=== PATIENT | male | born 1940 | race Hispanic/Latino ===

== ENCOUNTER 2024-05-04 02:36 | Inpatient (IN) | payer SELFPAY ==
[~2024-05-04] VITALS: Ht 172.7 cm; Wt 70.8 kg
[2024-05-04] VITALS (76 sets, daily range): BP systolic 75–163; BP diastolic 33–90; PULSE 53–94; RESP 9–81; TEMP 97.2–98.7; O2SAT 95–99
[2024-05-04 05:48] LABS: BASOPHILS # (AUTO) 0.02 K/uL (0.00-0.20); BASOPHILS % (AUTO) 0.2 % (0.0-5.0); EOSINOPHILS # (AUTO) 0.04 K/uL (0.00-0.70); EOSINOPHILS % (AUTO) 0.4 % (0.0-8.0); HEMATOCRIT 45.9 % (42-54); IMMATURE GRANULOCYTE ABSOLUTE 0.03 K/uL (0-1); LYMPHOCYTES # (AUTO) 1.4 K/uL (1.0-4.8); LYMPHOCYTES % (AUTO) 14.9 % (21.0-51.0); MEAN CORPUSCULAR HEMOGLOBIN 31.3 pg (27.0-33.0); MEAN CORPUSCULAR HGB CONC 33.8 g/dL (32.0-36.0); MEAN CORPUSCULAR VOLUME 92.5 fL (79-99); MONOCYTES # (AUTO) 0.8 K/uL (0.1-1.0); MONOCYTES % (AUTO) 8.4 % (3.0-13.0); NEUTROPHILS % (AUTO) 75.8 % (40.0-77.0); PLATELET COUNT (AUTO) 140 K/uL (130-400); RED BLOOD CELL COUNT(AUTO) 4.96 MIL/uL (4.50-6.20); RED CELL DISTRIBUTION WIDTH 12.5 % (11.0-15.5); WHITE BLOOD COUNT (AUTO) 9.3 K/uL (4.8-10.8)
[2024-05-04 05:59] LABS: ALBUMIN 3.5 g/dL (3.5-5.0); CREATININE 1.2 mg/dL (0.5-1.3); PHOSPHORUS 3.7 mg/dL (2.5-4.9); POTASSIUM 4.6 mmol/L (3.5-5.1)
[2024-05-04 06:00] LABS: BILIRUBIN,TOTAL 0.5 mg/dL (0.2-1.0); MAGNESIUM 2.2 mg/dL (1.80-2.40); TOTAL PROTEIN, SERUM 7.1 g/dL (6.0-8.3)
[2024-05-04] MEDS ORDERED: acetaMINOPHEN 650 MG SUPPOSITORY RC PRN (06:00)
[2024-05-04] MEDS ORDERED: hydrALAZine 20MG/ML VIAL IV PRN (06:00)
[2024-05-04] MEDS ORDERED: acetaMINOPHEN 325 MG TAB PO PRN (06:00)
[2024-05-04] MEDS ORDERED: doCUSate SODIUM 100 MG CAP PO PRN (06:00)
[2024-05-04] MEDS ORDERED: ondanSETRON 4MG INJ IVP PRN (06:00)
[2024-05-04 06:10] LABS: INR 1.01 (0.85-1.15); PARTIAL THROMBOPLASTIN TIME 34.4 SEC (26.3-35.5); PROTHROMBIN TIME 10.9 SEC (9.6-11.6)
[2024-05-04] MEDS ORDERED: SACU1TAB7 PO (06:13)
[2024-05-04] MEDS ORDERED: INSU3INS9 SQ (06:13)
[2024-05-04] MEDS ORDERED: CELECOXIB (06:13)
[2024-05-04] MEDS ORDERED: PREGABALIN (06:13)
[2024-05-04] MEDS ORDERED: [UNRECOGNIZED DRUG - OTHER] (06:13)
[2024-05-04] MEDS: INSULIN humuLIN R 100 UNIT/ML 3ML SQ SCH (06:28)
[2024-05-04] MEDS ORDERED: SPIRONOLACTONE (06:38)
[2024-05-04] MEDS: HEParin 5,000 UNIT VIAL IV PRN (07:00)
[2024-05-04] MEDS: HEParin 5,000 UNIT VIAL ONE (07:44)
[2024-05-04] MEDS: HEParin 25,000 UNITS/250ML D5W 250 ML IV SCH (07:46)
--- NOTE | 2024-05-04 07:57 | EKG ---
[facility] Test Date: 2024-05-04 Test Time: 07:40:06 Pat Name: ERICA CHATMAN Department: [facility] Room: 209 1 Gender: M Clinical Physician Assistant: JOSÉ MARES : 1940 Requested By: NAVEEN FRIEND Order Number: [id number] Reading MD: Aneta Zaragoza Measurements Intervals [place] Rate: 61 P: 43 MI: 188 QRS: -36 QRSD: 114 T: 118 QT: 492 QTc: 495 Interpretive Statements Sinus rhythm with premature atrial complexes Left axis deviation Low voltage QRS Incomplete right bundle branch block ST & T wave abnormality, consider lateral ischemia Prolonged QT No previous ECG available for comparison Electronically Signed On 05-04-2024 11:12:20 CDT by Aneta Zaragoza Please click the below link to view image of tracing.
[2024-05-04 08:17] LABS: HEMOGLOBIN A1C 7.7 % (4.0-6.0)
[2024-05-04 08:52] LABS: CHOLESTEROL 185 mg/dL (<200); HDL CHOLESTEROL 53 mg/dL (29-71); LDL DIRECT 116 mg/dL (0-99); TRIGLYCERIDES 109 mg/dL (30-200)
[2024-05-04] MEDS: FAMOTIDINE 20MG TAB PO SCH (09:23)
[2024-05-04] MEDS: ASPIRIN 81 MG EC TAB PO SCH (09:23)
[2024-05-04] MEDS ORDERED: MAGNESIUM 2GM PREMIX 50ML 50 ML IV PRN (09:30)
[2024-05-04] MEDS ORDERED: PoTASSium chloRIDE 20MEQ ER 20 MEQ ERTAB PO PRN (09:30)
[2024-05-04] MEDS ORDERED: PoTASSium chloRIDE 20MEQ/100ML 100 ML IV PRN ×2 (09:30)
[2024-05-04] MEDS ORDERED: PoTASSium chl 10% ELIXIR 20MEQ 20 MEQ/15 ML UDCUP PO PRN (09:30)
[2024-05-04] MEDS: NITROGLYCERIN 50MG/D5W 250ML 250 BOT IV SCH (09:55)
[2024-05-04 10:15] LABS: ADD UA MICROSCOPIC YES; APPEARANCE,URINE CLEAR (CLEAR); BILIRUBIN,URINE NEGATIVE (NEGATIVE); COLOR,URINE LIGHT-YELLOW (YELLOW); GLUCOSE, URINE (UA) >=1000 mg/dL (NEGATIVE); KETONES,URINE 40 mg/dL (NEGATIVE); LEUKOCYTE ESTERASE ,URINE NEGATIVE Leu/uL (NEGATIVE); NITRATE,URINE NEGATIVE (NEGATIVE); OCCULT BLOOD,URINE NEGATIVE (NEGATIVE); PROTEIN,URINE NEGATIVE (NEGATIVE); UROBILINOGEN,URINE 0.2 mg/dL (0.2-1.0)
[2024-05-04 10:16] LABS: MUCUS,URINE RARE LPF (None Seen); RBC,URINE 0-1 /HPF (0-1); SQUAMOUS EPITHELIAL CELL,UR RARE /HPF (0-2); WBC,URINE 0-1 /HPF (0-1)
--- NOTE | 2024-05-04 10:26 | HMCIMG ---
CHEST 1VW REASON: STEMI COMPARISON: None. FINDINGS: Single view of the chest was obtained. Lungs are clear. Heart size is normal. There is no pulmonary vascular congestion. Mediastinum and bony thorax appear unremarkable. IMPRESSION: 1. Normal single view chest x-ray.
--- NOTE | 2024-05-04 10:34 | HP ---
[facility] HISTORY & PHYSICAL Date Patient Seen: May 04, 2024 Time of Visit: 10:33 Supervising Physician: Fabricio Strong Primary Care Physician: Non established- lives in [place]- self pay Outpatient Specialists: ROGER Inpatient Consults: Dr. Fabricio Greene, Dr. Augusto Zaragoza, Dr. Garcia PROBLEM LIST: Lateral wall ST elevation TN Status post left heart cardiac catheterization on 05/03/[address] Marin in [facility] Multivessel coronary artery disease Acute coronary syndrome Elevated troponin Chest pain related to ACS Acute kidney injury due to ATN from dehydration Hyperglycemia in the setting of T2DM H/O Coronary artery disease status post PCI stent remote, hypertension, hy perlipidemia, Diabetes mellitus type II HISTORY OF PRESENT ILLNESS: 83-year-old frail pleasant elderly male, no established PCP. Past medical history significant for coronary artery disease status post PCI stent placement in the past, diabetes mellitus type 2 hypertension and hyperlipidemia. Presented to [facility] ED complaining of substernal chest pain radiating to the back rating it 10 of 10 scale accompanied dizziness and shortness of breaths. Denies nauseous and vomiting, diaphoresis, palpitations, syncope, abdominal pain, diarrhea, constipation, or generalized body weakness. Reports this pain around 4:25 p.m. today who was witnessed by the son and he was immediately brought to the hospital. On arrival to ED he was found to have elevated troponin of 2.[address] elevation in the lateral leads V5 and V6 for which NS STEMI alert was activated and patient underwent immediate left heart cardiac catheterization by today. He was found to have multi-vessel CAD with culprit lesion in the mid LAD, 90% lesion with thrombus, therefore Utility Inspector recommended CABG. He was then referred to Dr. Fisher/Cardiothoracic surgeon and he was transferred today to [facility] for invasive procedure of coronary artery bypass graft. Laboratory results during his stay at [facility] were WBC 7.7 Hemoglobin 15.8 Hematocrit 46.5, Platelets 144, sodium 140, potassium 4.2, uremia with BUN 25, creatinine 1.3, GFR 56, glucose 108, hemoglobin A1c 7.7, troponin 2.046, BNP 109, total protein 7.5, albumin 4.0, cholesterol 198, LDL 132, and HDL 45. No recent echocardiogram. At the time of my evaluation, the patient reports mild chest pain that has decreased in intensity and denies any other discomfort. Home medications were held. The patient does not smoke, Does not consume alcohol, and rarely drinks sw eetened beverages, he reports very good control of his blood glucose levels. The patient was referred to our hospital for a coronary artery bypass graft (CABG) and was admitted to the ICU awaiting Dr. Fisher for the procedure. PAST MEDICAL HX: Coronary artery disease status post PCI stent placement in the past, diabetes mellitus type 2, hypertension and hyperlipidemia. PAST SURGICAL HX: Cardiac stent SOCIAL HISTORY: No tobacco, ETOH, or illicit drug use Coded Allergies: No Known Allergies (Unverified Allergy, Unknown, 05/04/24) REVIEW OF SYSTEMS: Constitutional: No appetite loss, No fevers, chills , No night sweats, No weakness, fatigue Eye: No vision change, No redness, pain or discharge ENT: No hearing loss, ear pain or discharge, No nose bleeds, No sore throat, Neck: No swelling. pain or stiffness Respiratory: No cough, shortness of breath, wheezing Cardiovascular: Reports mild chest pain, decreased in intensity. No palpitations or syncope. Gastrointestinal: No abdominal pain, No nausea, vomiting, No diarrhea, constipation Genitourinary: No painful urination, No blood in urine, No urinary incontinence, No frequency or urgency Musculoskeletal: No joint pain, muscle pain, swelling or stiffness Neurological: No numbness, tingling, No weakness, tremors or seizures Psychiatric: : No depression, No anxiety, No sleep disturbance, No Memory changes Lymphatic: No easy bruising, No bleeding tendencies , No swollen lymph nodes A 13-point Review of Systems was assessed, all of which are negative except for HPI or as indicated above. PHYSICAL EXAM: GENERAL: alert, weak, awake oriented x 3 HEENT: EOMI, Sclera non icteric, moist mucosa NECK: Supple, no JVD, trachea midline LUNGS: Clear breath sounds bilaterally. No wheezes HEART: Regular rate and rhythm. Normal S1 and S2, without murmurs ABD: Abdomen soft, nontender. Bowel sounds present EXT: No clubbing cyanosis or edema NEURO: Alert and oriented to person, follows commands Vital Signs (last 8hr) Date Time Temp Pulse Resp B/P (MAP) Pulse Ox O2 Delivery O2 Flow Rate FiO2 05/04/24 10:00 68 14 135/69 96 Room Air 10/29/24 09:55 124/61 05/04/24 09:45 69 15 124/61 96 Room Air 05/04/24 09:30 64 78 126/52 98 Room Air 05/04/24 09:00 65 78 137/74 97 Room Air 05/04/24 08:45 65 16 124/69 95 Room Air 05/04/24 08:00 98.4 66 20 134/67 95 Room Air 05/04/24 08:00 99 Room Air* 0 05/04/24 07:30 56 21 132/64 98 Room Air 05/04/24 07:15 62 21 124/59 97 Room Air 05/04/24 07:00 63 17 134/73 97 Room Air 05/04/24 06:45 54 12 123/67 98 Room Air 05/04/24 06:30 57 10 137/67 97 Room Air 05/04/24 06:15 54 11 124/67 96 Room Air 05/04/24 06:00 96 Room Air* 0 05/04/24 06:00 55 14 126/61 98 Room Air 05/04/24 05:45 57 17 140/60 98 Room Air 05/04/24 05:30 57 9 124/61 94 Room Air 05/04/24 05:15 54 9 128/67 96 Room Air 05/04/24 05:00 53 13 133/59 97 Room Air 05/04/24 04:49 58 15 130/68 94 Room Air 05/04/24 04:45 53 10 138/67 94 Room Air LABS: Hematology Labs: Test 05/04/24 05:14 Range/Units White Blood Count 9.3 4.8-10.8 K/uL Red Blood Count 4.96 4.50-6.20 MIL/uL Hemoglobin 15.5 14.0-18.0 g/dL Hematocrit 45.9 42-54 % Mean Corpuscular Volume 92.5 79-99 fL Mean Corpuscular Hemoglobin 31.3 27.0-33.0 pg Mean Corpuscular Hemoglobin Concent 33.8 32.0-36.0 g/dL Red Cell Distribution Width 12.5 11.0-15.5 % Platelet Count 140 130-400 K/uL Mean Platelet Volume 10.9 H 7.5-10.5 fL Immature Granulocyte % (Auto) 0.3 0-1 % Neutrophils (%) (Auto) 75.8 40.0-77.0 % Lymphocytes (%) (Auto) 14.9 L 21.0-51.0 % Monocytes (%) (Auto) 8.4 3.0-13.0 % Eosinophils (%) (Auto) 0.4 0.0-8.0 % Basophils (%) (Auto) 0.2 0.0-5.0 % Neutrophils # (Auto) 7.0 1.8-7.7 K/uL Lymphocytes # (Auto) 1.4 1.0-4.8 K/uL Monocytes # (Auto) 0.8 0.1-1.0 K/uL Eosinophils # (Auto) 0.04 0.00-0.70 K/uL Basophils # (Auto) 0.02 0.00-0.20 K/uL Absolute Immature Granulocyte (auto 0.03 0-1 K/uL Nucleated Red Blood Cells 0.0 0.0-0.19 % Chemistry Labs: Test 05/04/24 05:14 Range/Units Sodium Level 140 136-145 mmol/L Potassium Level 4.6 3.5-5.1 mmol/L Chloride Level 104 101-111 mmol/L Carbon Dioxide Level 28 21-32 mmol/L Blood Urea Nitrogen 25 H 7-18 mg/dL Creatinine 1.2 0.5-1.3 mg/dL Glomerular Filtration Rate Calc 60 >90 mL/min Random Glucose 92 70-105 mg/dL Hemoglobin A1c 7.7 H 4.0-6.0 % Estimated Average Glucose (eAG) 174 H 70-126 mg/dL Total Calcium 8.7 8.5-10.1 mg/dL Phosphorus Level 3.7 2.5-4.9 mg/dL Magnesium Level 2.20 1.80-2.40 mg/dL Total Bilirubin 0.5 0.2-1.0 mg/dL Aspartate Amino Transf (AST/SGOT) 45 H 10-37 U/L Alanine Aminotransferase (ALT/SGPT) 23 12-78 U/L Alkaline Phosphatase 107 50-136 U/L Troponin I High Sensitivity 7234 *H 4-75 ng/L Total Protein 7.1 6.0-8.3 g/dL Albumin 3.5 3.5-5.0 g/dL Triglycerides Level 109 30-200 mg/dL Cholesterol Level 185 <200 mg/dL LDL Cholesterol 116 H 0-99 mg/dL HDL Cholesterol 53 29-71 mg/dL Coagulation Labs: Test 05/04/24 05:14 Range/Units Prothrombin Time 10.9 9.6-11.6 SEC Prothromb Time International Ratio 1.01 0.85-1.15 Activated Partial Thromboplast Time 34.4 26.3-35.5 SEC Fibrinogen 524 *H 180-350 mg/dL DIAGNOSTICS / RADIOLOGY RESULTS: PATIENT: ERICA AMAYA MR#: [id number] : 1940 SEX: M AGE: 83 LOCATION: 2BH ORDER 8 STATUS: ADM IN REPORT#: [id number] SERVICE 8 REASON: STEMI ORDERING PHYSICIAN: DENVER MARTIN CNP PROCEDURE: CXR1VW - CHEST 1VW CHEST 1VW REASON: STEMI COMPARISON: None. FINDINGS: Single view of the chest was obtained. Lungs are clear. Heart size is normal. There is no pulmonary vascular congestion. Mediastinum and bony thorax appear unremarkable. IMPRESSION: 1. Normal single view chest x-ray. DICTATED BY: NICHOL OVALLE MD DATE: 05/04/241022 ELECTRONICALLY SIGNED BY: NICHOL OVALLE MD DATE: 05/04/24 102 PLAN NEURO: Minimize central acting medications as possible Maintain fall precautions Adecuate light during the day and minimize interruptions trhough the night to prevent acute delirrium PULMONARY: Supplemental 02 as needed Titrate Fio2 to keep Spo2 > or = 90% DuoNebs and CPT as needed IS hourly while awake for pulmonary hygiene Out of bed to chair as tolerated CARDIOVASCULAR: pending CABG Follow hemodynamics. Titrate vasopressor to keep MAP >65 or systolic blood pressure >95mmHg DIPS: c/w Heparin and nitrogtt LINES: GI & NUTRITION: Continue nutritional support Aspirations precautions Prokinetic agents and laxatives as needed KIDNEYS & ELECTROLYTES: Strict monitoring of intake and output Daily weights Avoid nephrotoxic agents Monitor electrolytes and replace as needed Goal urine output of 30mL/hr or 0.5mL/kg/hr ENDOCRINE: Maintain blood glucose between 100-180 at all times. Insulin sliding scale for blood glucose management INFECTIOUS DISEASE: Trend temperature. Sim-culture if febrile. HEMATOLOGY & COAGULATION: Monitor H&H. Keep Hgb > 7 Transfuse 1 unit of PRBC for Hgb < 7 Transfuse 1 pack of platelets of platelets < 20, 000 Watch for any signs and symptoms of bleeding SKIN: Pressure ulcer prevention per facility protocol Rehab: PT/OT Prophylaxis: GI: famotidine DVT: heparin drip Code Status: Full Resuscitation Disposition: Other: Total patient care time exceeds 35 minutes excluding all procedures. Case was discussed and seen with my supervising physician. The above plan was formulated and agreed upon. LETICIA ANDRADE MD May 04, 2024 10:34 DENVER MARTIN GUN STOCK CHECKER May 04, 2024 14:13
--- NOTE | 2024-05-04 10:53 | HMCSR ---
APPROVED REPORT EXAM: Two-dimensional and M-mode echocardiogram with Doppler and color Doppler. INDICATION ICD: ST-elevation [place] 2D Dimensions RVDd3.7 cmLVEF(%)42.0 (>50%)LVED Vol(simp.)99.0 mL IVSd0.9 (0.7-1.1cm)FS(%)21 %LVES Vol(simp.)56.0 mL LVDd4.4 (3.8-5.6cm)LA (2D)3.7 (1.6-4.0cm)LVEF(%, simp.)43 % PWd1.0 (0.7-1.1cm)Ao Root(2D)3.6 (2.0-3.7cm)LA ESV INDEX (4CH)15.30 mL/m2 IVSs1.3 cmLVOT diam2.0 (1.8-2.4cm)LA ESV INDEX (2CH)20.20 mL/m2 LVDs3.5 (2.5-4.0cm)IVC diam1.7 cmLA ESV INDEX (BP)18.40 mL/m2 PWs1.3 cm M-Mode Dimensions EPSS0.8 cm LA (MM)3.8 (1.6-4.0cm) Ao Root(MM)2.9 (2.0-3.7cm) Aortic Valve AoV VTI0.2 mAo Mean GR2.0 mmHgLVOT VTI0.16 m MIRTHA (VMAX)2.3 cm2AVA (VTI) 2.3 cm2 Mitral Valve MV E Vmax71.1 cm/sDECEL Agfw301 ms MV A Vmax98.2 cm/sP 1/2 T129 ms E/A ratio0.7MVA (PHT)1.7 cm2 MR Max PG55 mmHg TDI E/E' Gubsmw77.5E/E' Qrkgfrp64.9 Medial E' Peak V4.30 cm/sLateral E' Peak V5.50 cm/s Pulmonary Valve PV VTI0.15 mPV Mean GR1 mmHg Left Ventricle The left ventricle is normal size. GLS -14% There is normal left ventricular wall thickness. LVEF is 40-45%. The left ventricular diastolic function is normal. Right Ventricle The right ventricle is normal size. The right ventricular systolic function is normal. Atria The left atrium size is normal. The right atrium size is normal. Aortic Valve The aortic valve is normal in structure. No aortic regurgitation is present. There is no aortic valvu lar stenosis. Mitral Valve The mitral valve is normal in structure. Mitral regurgitation is mild. There is no mitral valve steno sis. Tricuspid Valve The tricuspid valve is normal in structure. There is no tricuspid valve regurgitation noted. Pulmonic Valve The pulmonary valve is normal in structure. There is no pulmonic valvular regurgitation. Great Vessels The aortic root is normal in size. The IVC is normal in size and collapses >50% with inspiration. Pericardium There is no pericardial effusion. Conclusion The left ventricle is normal size. LVEF is 40-45%. The left ventricular diastolic function is normal. The right ventricle is normal size. The right ventricular systolic function is normal. The left atrium size is normal. The right atrium size is normal. Mitral regurgitation is mild. There is no pericardial effusion.
--- NOTE | 2024-05-04 11:23 | CONS ---
[facility] CARDIOLOGY CONSULTATION NOTE Date Patient Seen: May 04, 2024 Time of Visit: 11:19 Reason for Consultation: [ pending CABG] History of Present Illness: [ Patient is an 83 yo M who has been transferred from [facility] here for CABG after he presented with NSTEMI and underwent LHC showing multivessel CAD. He reports relief of his chest pain with the heparin and nitro gtt. He is hemodynamically stable. ] Past Medical History: [ ] Past Surgical History: [ ] Family History: [ ] Social History: [ ] Habits: [Never] smoker. [Denies] alcohol consumption. [Denies] illicit drug use Home Meds: [ ] Current Meds: [ ] Review of Systems: CONST: [No fever, fatigue, or weight changes.] EYES: [No recent vision problems.] ENT: [No congestion, ear pain, or sore throat.] C/V: [No chest pain, palpitations, or edema.] RESP: [No cough, congestion, wheezing or shortness of breath.] GI: [No abdominal pain, nausea, vomiting, constipation, or diarrhea.] : [No incontinence or dysuria.] SKIN: [No rash.] NEURO: [No headache, focal numbness or weakness, dizziness, or seizures.] PSYCH: [No depression or anxiety.] HEME: [No abnormal bruising or bleeding.] LYMPH: [No swollen glands.] Physical Examination: GENERAL: [No acute distress.] HEAD: [Normal with no signs of head trauma.] EYES: [PERRLA, EOMI, conjunctiva and sclera normal.] ENT: [Hearing grossly intact, normal oropharynx.] NECK: [Supple without JVD. There is no tenderness, lymphadenopathy, or masses. No thyromegaly. Normal carotid upstrokes without bruits.] LUNGS: [Clear breath sounds bilaterally. There are right basilar rales one third of the way up the chest. No wheezes, or rhonchi.] HEART: [Normal rate and rhythm. Normal S1 and S2 without mumurs, gallop or rub.] VASC: [Peripheral pulses +2 bilaterally.] ABD: [Bowel sounds normal, soft, nontender, no masses, no organomegaly. No audible bruits.] : [Not examined] LYMPH: [No lymphadenopathy noted.] EXT: [No clubbing, cyanosis or edema.] SKIN: [No rashes or lesions noted.] NEURO: [Awake, alert, and oriented x3. No focal sensory or strength deficits noted.] Vital Signs (last 8hr) Date Time Temp Pulse Resp B/P (MAP) Pulse Ox O2 Delivery O2 Flow Rate FiO2 05/04/24 10:30 74 10 107/64 96 Room Air 05/04/24 10:15 70 14 127/68 96 Room Air 05/04/24 10:03 65 12 129/67 96 Room Air 05/04/24 10:00 68 14 135/69 96 Room Air 05/04/24 09:55 124/61 05/04/24 09:45 69 15 124/61 96 Room Air 05/04/24 09:30 64 78 126/52 98 Room Air 05/04/24 09:00 65 78 137/74 97 Room Air 05/04/24 08:45 65 16 124/69 95 Room Air 05/04/24 08:00 98.4 66 20 134/67 95 Room Air 05/04/24 08:00 99 Room Air* 0 05/04/24 07:30 56 21 132/64 98 Room Air 05/04/24 07:15 62 21 124/59 97 Room Air 05/04/24 07:00 63 17 134/73 97 Room Air 05/04/24 06:45 54 12 123/67 98 Room Air 05/04/24 06:30 57 10 137/67 97 Room Air 05/04/24 06:15 54 11 124/67 96 Room Air 05/04/24 06:00 96 Room Air* 0 05/04/24 06:00 55 14 126/61 98 Room Air 05/04/24 05:45 57 17 140/60 98 Room Air 05/04/24 05:30 57 9 124/61 94 Room Air 05/04/24 05:15 54 9 128/67 96 Room Air 05/04/24 05:00 53 13 133/59 97 Room Air 05/04/24 04:49 58 15 130/68 94 Room Air 05/04/24 04:45 53 10 138/67 94 Room Air Laboratory: [ ] Hematology Labs: Test 05/04/24 05:14 Range/Units White Blood Count 9.3 4.8-10.8 K/uL Red Blood Count 4.96 4.50-6.20 MIL/uL Hemoglobin 15.5 14.0-18.0 g/dL Hematocrit 45.9 42-54 % Mean Corpuscular Volume 92.5 79-99 fL Mean Corpuscular Hemoglobin 31.3 27.0-33.0 pg Mean Corpuscular Hemoglobin Concent 33.8 32.0-36.0 g/dL Red Cell Distribution Width 12.5 11.0-15.5 % Platelet Count 140 130-400 K/uL Mean Platelet Volume 10.9 H 7.5-10.5 fL Immature Granulocyte % (Auto) 0.3 0-1 % Neutrophils (%) (Auto) 75.8 40.0-77.0 % Lymphocytes (%) (Auto) 14.9 L 21.0-51.0 % Monocytes (%) (Auto) 8.4 3.0-13.0 % Eosinophils (%) (Auto) 0.4 0.0-8.0 % Basophils (%) (Auto) 0.2 0.0-5.0 % Neutrophils # (Auto) 7.0 1.8-7.7 K/uL Lymphocytes # (Auto) 1.4 1.0-4.8 K/uL Monocytes # (Auto) 0.8 0.1-1.0 K/uL Eosinophils # (Auto) 0.04 0.00-0.70 K/uL Basophils # (Auto) 0.02 0.00-0.20 K/uL Absolute Immature Granulocyte (auto 0.03 0-1 K/uL Nucleated Red Blood Cells 0.0 0.0-0.19 % Chemistry Labs: Test 05/04/24 11:00 05/04/24 05:14 Range/Units Whole Blood Glucose 94 70-110 MG/DL Sodium Level 140 136-145 mmol/L Potassium Level 4.6 3.5-5.1 mmol/L Chloride Level 104 101-111 mmol/L Carbon Dioxide Level 28 21-32 mmol/L Blood Urea Nitrogen 25 H 7-18 mg/dL Creatinine 1.2 0.5-1.3 mg/dL Glomerular Filtration Rate Calc 60 >90 mL/min Random Glucose 92 70-105 mg/dL Hemoglobin A1c 7.7 H 4.0-6.0 % Estimated Average Glucose (eAG) 174 H 70-126 mg/dL Total Calcium 8.7 8.5-10.1 mg/dL Phosphorus Level 3.7 2.5-4.9 mg/dL Magnesium Level 2.20 1.80-2.40 mg/dL Total Bilirubin 0.5 0.2-1.0 mg/dL Aspartate Amino Transf (AST/SGOT) 45 H 10-37 U/L Alanine Aminotransferase (ALT/SGPT) 23 12-78 U/L Alkaline Phosphatase 107 50-136 U/L Troponin I High Sensitivity 7234 *H 4-75 ng/L Total Protein 7.1 6.0-8.3 g/dL Albumin 3.5 3.5-5.0 g/dL Triglycerides Level 109 30-200 mg/dL Cholesterol Level 185 <200 mg/dL LDL Cholesterol 116 H 0-99 mg/dL HDL Cholesterol 53 29-71 mg/dL Coagulation Labs: Test 05/04/24 05:14 Range/Units Prothrombin Time 10.9 9.6-11.6 SEC Prothromb Time International Ratio 1.01 0.85-1.15 Activated Partial Thromboplast Time 34.4 26.3-35.5 SEC Fibrinogen 524 *H 180-350 mg/dL Diagnostics / Radiology: [Copy/Paste Echos/Imaging Report here] Plan: [ #CAD pending CABG -h/o GISSELLE in 2017 -c/w heparin and nitro gtt -c/w asa 81 mg qd, atorvastatin 40 mg qhs -2D echo showed mid range LVEF 40-45% -pending CV surgery consult Aneta Zaragoza MD] ANETA ZARAGOZA MD May 04, 2024 11:23
--- NOTE | 2024-05-04 14:16 | HP ---
[facility] HISTORY & PHYSICAL Date Patient Seen: May 04, 2024 Time of Visit: 14:13 Supervising Physician: Fabricio Strong Primary Care Physician: Non established- lives in [place]- self pay Outpatient Specialists: ROGER Inpatient Consults: Dr. Fabricio Greene, Dr. Augusto Zaragoza, Dr. Garcia PROBLEM LIST: Lateral wall ST elevation [place] Status post left heart cardiac catheterization on 05/03/[address] Marin in [facility] Multivessel coronary artery disease Acute coronary syndrome Elevated troponin Chest pain related to ACS Acute kidney injury due to ATN from dehydration Hyperglycemia in the setting of T2DM H/O Coronary artery disease status post PCI stent remote, hypertension, hy perlipidemia, Diabetes mellitus type II HISTORY OF PRESENT ILLNESS: 83-year-old frail pleasant elderly male, no established PCP. Past medical history significant for coronary artery disease status post PCI stent placement in the past, diabetes mellitus type 2 hypertension and hyperlipidemia. Presented to [facility] ED complaining of substernal chest pain radiating to the back rating it 10 of 10 scale accompanied dizziness and shortness of breaths. Denies nauseous and vomiting, diaphoresis, palpitations, syncope, abdominal pain, diarrhea, constipation, or generalized body weakness. Reports this pain around 4:25 p.m. today who was witnessed by the son and he was immediately brought to the hospital. On arrival to ED he was found to have elevated troponin of 2.[address] elevation in the lateral leads V5 and V6 for which NS STEMI alert was activated and patient underwent immediate left heart cardiac catheterization by today. He was found to have multi-vessel CAD with culprit lesion in the mid LAD, 90% lesion with thrombus, therefore Registration Rep recommended CABG. He was then referred to Dr. Fisher/Cardiothoracic surgeon and he was transferred today to [facility] for invasive procedure of coronary artery bypass graft. Laboratory results during his stay at [facility] were WBC 7.7 Hemoglobin 15.8 Hematocrit 46.5, Platelets 144, sodium 140, potassium 4.2, uremia with BUN 25, creatinine 1.3, GFR 56, glucose 108, hemoglobin A1c 7.7, troponin 2.046, BNP 109, total protein 7.5, albumin 4.0, cholesterol 198, LDL 132, and HDL 45. No recent echocardiogram. At the time of my evaluation, the patient reports mild chest pain that has decreased in intensity and denies any other discomfort. Home medications were held. The patient does not smoke, Does not consume alcohol, and rarely drinks sw eetened beverages, he reports very good control of his blood glucose levels. The patient was referred to our hospital for a coronary artery bypass graft (CABG) and was admitted to the ICU awaiting Dr. Fisher for the procedure. PAST MEDICAL HX: Coronary artery disease status post PCI stent placement in the past, diabetes mellitus type 2, hypertension and hyperlipidemia. PAST SURGICAL HX: Cardiac stent SOCIAL HISTORY: No tobacco, ETOH, or illicit drug use Coded Allergies: No Known Allergies (Unverified Allergy, Unknown, 05/04/24) REVIEW OF SYSTEMS: Constitutional: No appetite loss, No fevers, chills , No night sweats, No weakness, fatigue Eye: No vision change, No redness, pain or discharge ENT: No hearing loss, ear pain or discharge, No nose bleeds, No sore throat, Neck: No swelling. pain or stiffness Respiratory: No cough, shortness of breath, wheezing Cardiovascular: Reports mild chest pain, decreased in intensity. No palpitations or syncope. Gastrointestinal: No abdominal pain, No nausea, vomiting, No diarrhea, constipation Genitourinary: No painful urination, No blood in urine, No urinary incontinence, No frequency or urgency Musculoskeletal: No joint pain, muscle pain, swelling or stiffness Neurological: No numbness, tingling, No weakness, tremors or seizures Psychiatric: : No depression, No anxiety, No sleep disturbance, No Memory changes Lymphatic: No easy bruising, No bleeding tendencies , No swollen lymph nodes A 13-point Review of Systems was assessed, all of which are negative except for HPI or as indicated above. PHYSICAL EXAM: GENERAL: alert, weak, awake oriented x 3 HEENT: EOMI, Sclera non icteric, moist mucosa NECK: Supple, no JVD, trachea midline LUNGS: Clear breath sounds bilaterally. No wheezes HEART: Regular rate and rhythm. Normal S1 and S2, without murmurs ABD: Abdomen soft, nontender. Bowel sounds present EXT: No clubbing cyanosis or edema NEURO: Alert and oriented to person, follows commands Vital Signs (last 8hr) Date Time Temp Pulse Resp B/P (MAP) Pulse Ox O2 Delivery O2 Flow Rate FiO2 05/04/24 13:15 94 16 110/58 96 Room Air 10/29/24 13:00 78 12 114/66 92 Room Air 05/04/24 12:45 71 14 122/81 96 Room Air 05/04/24 12:30 72 16 133/58 96 Room Air 05/04/24 12:15 75 12 135/55 97 Room Air 05/04/24 12:00 96 Room Air* 0 05/04/24 12:00 97.2 77 14 113/53 97 Room Air 05/04/24 11:45 70 9 117/66 95 Room Air 05/04/24 11:30 64 12 126/54 97 Room Air 05/04/24 11:15 71 13 115/65 95 Room Air 05/04/24 11:00 73 12 113/66 95 Room Air 05/04/24 10:45 76 11 104/50 95 Room Air 05/04/24 10:30 74 10 107/64 96 Room Air 05/04/24 10:15 70 14 127/68 96 Room Air 05/04/24 10:03 65 12 129/67 96 Room Air 05/04/24 10:00 68 14 135/69 96 Room Air 05/04/24 09:55 124/61 05/04/24 09:45 69 15 124/61 96 Room Air 05/04/24 09:30 64 78 126/52 98 Room Air 05/04/24 09:00 65 78 137/74 97 Room Air 05/04/24 08:45 65 16 124/69 95 Room Air 05/04/24 08:00 98.4 66 20 134/67 95 Room Air 05/04/24 08:00 99 Room Air* 0 05/04/24 07:30 56 21 132/64 98 Room Air 05/04/24 07:15 62 21 124/59 97 Room Air 05/04/24 07:00 63 17 134/73 97 Room Air 05/04/24 06:45 54 12 123/67 98 Room Air 05/04/24 06:30 57 10 137/67 97 Room Air 05/04/24 06:15 54 11 124/67 96 Room Air LABS: Hematology Labs: Test 05/04/24 05:14 Range/Units White Blood Count 9.3 4.8-10.8 K/uL Red Blood Count 4.96 4.50-6.20 MIL/uL Hemoglobin 15.5 14.0-18.0 g/dL Hematocrit 45.9 42-54 % Mean Corpuscular Volume 92.5 79-99 fL Mean Corpuscular Hemoglobin 31.3 27.0-33.0 pg Mean Corpuscular Hemoglobin Concent 33.8 32.0-36.0 g/dL Red Cell Distribution Width 12.5 11.0-15.5 % Platelet Count 140 130-400 K/uL Mean Platelet Volume 10.9 H 7.5-10.5 fL Immature Granulocyte % (Auto) 0.3 0-1 % Neutrophils (%) (Auto) 75.8 40.0-77.0 % Lymphocytes (%) (Auto) 14.9 L 21.0-51.0 % Monocytes (%) (Auto) 8.4 3.0-13.0 % Eosinophils (%) (Auto) 0.4 0.0-8.0 % Basophils (%) (Auto) 0.2 0.0-5.0 % Neutrophils # (Auto) 7.0 1.8-7.7 K/uL Lymphocytes # (Auto) 1.4 1.0-4.8 K/uL Monocytes # (Auto) 0.8 0.1-1.0 K/uL Eosinophils # (Auto) 0.04 0.00-0.70 K/uL Basophils # (Auto) 0.02 0.00-0.20 K/uL Absolute Immature Granulocyte (auto 0.03 0-1 K/uL Nucleated Red Blood Cells 0.0 0.0-0.19 % Chemistry Labs: Test 05/04/24 11:00 05/04/24 05:14 Range/Units Whole Blood Glucose 94 70-110 MG/DL Sodium Level 140 136-145 mmol/L Potassium Level 4.6 3.5-5.1 mmol/L Chloride Level 104 101-111 mmol/L Carbon Dioxide Level 28 21-32 mmol/L Blood Urea Nitrogen 25 H 7-18 mg/dL Creatinine 1.2 0.5-1.3 mg/dL Glomerular Filtration Rate Calc 60 >90 mL/min Random Glucose 92 70-105 mg/dL Hemoglobin A1c 7.7 H 4.0-6.0 % Estimated Average Glucose (eAG) 174 H 70-126 mg/dL Total Calcium 8.7 8.5-10.1 mg/dL Phosphorus Level 3.7 2.5-4.9 mg/dL Magnesium Level 2.20 1.80-2.40 mg/dL Total Bilirubin 0.5 0.2-1.0 mg/dL Aspartate Amino Transf (AST/SGOT) 45 H 10-37 U/L Alanine Aminotransferase (ALT/SGPT) 23 12-78 U/L Alkaline Phosphatase 107 50-136 U/L Troponin I High Sensitivity 7234 *H 4-75 ng/L Total Protein 7.1 6.0-8.3 g/dL Albumin 3.5 3.5-5.0 g/dL Triglycerides Level 109 30-200 mg/dL Cholesterol Level 185 <200 mg/dL LDL Cholesterol 116 H 0-99 mg/dL HDL Cholesterol 53 29-71 mg/dL Coagulation Labs: Test 05/04/24 11:01 05/04/24 05:14 Range/Units Activated Partial Thromboplast Time 50.3 #H 26.3-35.5 SEC Prothrombin Time 10.9 9.6-11.6 SEC Prothromb Time International Ratio 1.01 0.85-1.15 Fibrinogen 524 *H 180-350 mg/dL DIAGNOSTICS / RADIOLOGY RESULTS: REASON: STEMI ORDERING PHYSICIAN: DENVER MARTIN CNP PROCEDURE: CXR1VW - CHEST 1VW CHEST 1VW REASON: STEMI COMPARISON: None. FINDINGS: Single view of the chest was obtained. Lungs are clear. Heart size is normal. There is no pulmonary vascular congestion. Mediastinum and bony thorax appear unremarkable. IMPRESSION: 1. Normal single view chest x-ray. PLAN NEURO: Minimize central acting medications as possible Maintain fall precautions Adecuate light during the day and minimize interruptions trhough the night to prevent acute delirrium PULMONARY: Supplemental 02 as needed Titrate Fio2 to keep Spo2 > or = 90% DuoNebs and CPT as needed IS hourly while awake for pulmonary hygiene Out of bed to chair as tolerated CARDIOVASCULAR: pending CABG Follow hemodynamics. Titrate vasopressor to keep MAP >65 or systolic blood pressure >95mmHg Consult to CV surgery Consult to cardiology DRIPS: Heparin Nitroglycerin LINES: PIV GI & NUTRITION: Continue nutritional support Aspirations precautions Prokinetic agents and laxatives as needed KIDNEYS & ELECTROLYTES: Strict monitoring of intake and output Daily weights Avoid nephrotoxic agents Monitor electrolytes and replace as needed Goal urine output of 30mL/hr or 0.5mL/kg/hr ENDOCRINE: Maintain blood glucose between 100-180 at all times. Insulin sliding scale for blood glucose management Check HgbA1C Long acting insulin with Lantus INFECTIOUS DISEASE: Trend temperature. Sim-culture if febrile. HEMATOLOGY & COAGULATION: Monitor H&H. Keep Hgb > 7 Transfuse 1 unit of PRBC for Hgb < 7 Transfuse 1 pack of platelets of platelets < 20, 000 Watch for any signs and symptoms of bleeding SKIN: Pressure ulcer prevention per facility protocol Rehab: PT/OT Prophylaxis: GI: famotidine DVT: heparin drip Code Status: Full Resuscitation Disposition: Other: Total patient care time exceeds 35 minutes excluding all procedures. Case was discussed and seen with my supervising physician. The above plan was formulated and agreed upon. DENVER MARTIN [facility] May 04, 2024 14:16
[2024-05-04] MEDS: CALCIUM CARB 500MG CHEW TAB PO PRN (16:38)
[2024-05-04] MEDS: atorVAStatin 40 MG TABLET PO SCH (20:22)
[2024-05-04] MEDS: metoPROLOL tartRATE 25 MG TAB PO SCH (20:22)
[2024-05-04] MEDS: INSULIN GLARgine 100 UNITS/ML 10 ML VIAL SQ SCH (20:23)
[2024-05-04] MEDS: TEMAZepam 15 MG CAPSULE PO PRN (21:22)
[2024-05-05] VITALS (48 sets, daily range): BP systolic 102–149; BP diastolic 39–91; PULSE 53–126; RESP 12–35; TEMP 97.8–98.7; O2SAT 93–96
[2024-05-05 03:55] LABS: BASOPHILS # (AUTO) 0.03 K/uL (0.00-0.20); BASOPHILS % (AUTO) 0.6 % (0.0-5.0); EOSINOPHILS # (AUTO) 0.07 K/uL (0.00-0.70); EOSINOPHILS % (AUTO) 1.4 % (0.0-8.0); HEMATOCRIT 45.1 % (42-54); IMMATURE GRANULOCYTE ABSOLUTE 0.02 K/uL (0-1); LYMPHOCYTES # (AUTO) 1.3 K/uL (1.0-4.8); LYMPHOCYTES % (AUTO) 24.9 % (21.0-51.0); MEAN CORPUSCULAR HEMOGLOBIN 31.2 pg (27.0-33.0); MEAN CORPUSCULAR HGB CONC 33.3 g/dL (32.0-36.0); MEAN CORPUSCULAR VOLUME 93.8 fL (79-99); MONOCYTES # (AUTO) 0.6 K/uL (0.1-1.0); NEUTROPHILS # (AUTO) 3.1 K/uL (1.8-7.7); NEUTROPHILS % (AUTO) 60.7 % (40.0-77.0); PLATELET COUNT (AUTO) 132 K/uL (130-400); RED BLOOD CELL COUNT(AUTO) 4.81 MIL/uL (4.50-6.20); RED CELL DISTRIBUTION WIDTH 12.4 % (11.0-15.5); WHITE BLOOD COUNT (AUTO) 5.2 K/uL (4.8-10.8)
--- NOTE | 2024-05-05 03:58 | CONS ---
TIME: 11:00 a.m. REASON FOR CONSULTATION: Coronary artery disease, NSTEMI. HISTORY OF PRESENT ILLNESS: This is an 83-year-old gentleman who had chest pain at home. He went to the [facility] where he was found to have a ST-elevation myocardial infarction. He was transferred to [facility] after left heart catheterization, showed significant 3-vessel coronary artery disease. Cardiac Surgery was consulted for further management. PHYSICAL EXAMINATION: NEUROLOGIC: Alert and oriented, no deficits. CARDIOVASCULAR: S1, S2. Regular rate and rhythm. RESPIRATORY: Clear to auscultation bilaterally. ASSESSMENT AND PLAN: This is an 83-year-old gentleman with 3-vessel disease and non-ST segment elevation myocardial infarction. I explained the benefits and the risks including loss of limb, loss of life, bleeding, infection, stroke and others. He understands. At this point, he is telling us that given his advanced age, he wants to think about surgery. Hypothetically, I believe that he will benefit from surgery as he is a strong individual overall despite his older age, but I do respect his wishes at this time. We will continue to follow along and see if he agrees to surgery in the upcoming days. TID: [id number] RECEIPT: [id number]
[2024-05-05 04:10] LABS: CREATININE 1.3 mg/dL (0.5-1.3); MAGNESIUM 2.3 mg/dL (1.80-2.40); PHOSPHORUS 3.9 mg/dL (2.5-4.9); POTASSIUM 3.6 mmol/L (3.5-5.1)
[2024-05-05 07:34] LABS: ABG BASE EXCESS -2.1 mmol/L (-2.0-3.0); ABG HCO3 21.2 mmol/L (21.0-28.0); ABG OXYGEN SATURATION 94.9 % (94.0-98.0); ABG PCO2 33 mmHg (35-48); ABG PH 7.433 (7.350-7.450); DEVICE COMMENT RB ROSIE; PO2, ARTERIAL BG 70.8 mmHg (83.0-108.0); VENT MODE, BG RA (ROOM AIR)
[2024-05-05] MEDS ORDERED: ceFAZolin SODIUM 2 GM VIAL IVP SCH (10:00)
--- NOTE | 2024-05-05 10:40 | PN ---
[facility] PROGRESS NOTE Date Patient Seen: May 05, 2024 Time of Visit: 10:35 Supervising Physician: Dr. Greene Primary Care Physician: Non established- lives in [place]- self pay Outpatient Specialists: NA Inpatient Consults: Dr. Fabricio Greene, Dr. Augusto Zaragoza, Dr. Friend PROBLEM LIST: Lateral wall ST elevation CA Status post left heart cardiac catheterization on 05/03/[address] Marin in [facility] Multivessel coronary artery disease Acute coronary syndrome Elevated troponin Chest pain related to ACS Acute kidney injury due to ATN from dehydration Hyperglycemia in the setting of T2DM H/O Coronary artery disease status post PCI stent remote, hypertension, hyperlipidemia, Diabetes mellitus type II INTERVAL HISTORY: 05/05/2024 Yesterday, Dr. Friend met with the patient to discuss the potential benefits and risks of CABG surgery. Risks explained included los of limb, loss of life, bleeding, infection, stroke, and other complications. the patient demonstrated understanding of the risks and benefits but requested additional time to consider the surgery due to his advanced age. Dr Friend believes that the patient would likely benefit from the surgery, given his physical strength despite his age, but expressed willingness to honor the patient's decision. Today, the patient is alert and oriented. He reported that he discussed the situation with his family and has decided to proceed with the surgery. La boratory results, WBC 5.2, Hemoglobin 15.0, Hematocrit 45.1, Platelets 132, Sodium 134, Potassium 3.6, BUN 27, Creatinine 1.3, GFR 54, Glucose 112, Troponin 6883. He has been weaned off of nitroglycerin drip. Continue heparin drip. Asa, statin, Echo with LVEF 40-45%. REVIEW OF SYSTEMS: Constitutional: No appetite loss, No fevers, chills , No night sweats, No weakness, fatigue Eye: No vision change, No redness, pain or discharge ENT: No hearing loss, ear pain or discharge, No nose bleeds, No sore throat, Neck: No swelling. pain or stiffness Respiratory: No cough, shortness of breath, wheezing Cardiovascular: Reports mild chest pain, decreased in intensity. No palpitations or syncope. Gastrointestinal: No abdominal pain, No nausea, vomiting, No diarrhea, constipation Genitourinary: No painful urination, No blood in urine, No urinary incontinence, No frequency or urgency Musculoskeletal: No joint pain, muscle pain, swelling or stiffness Neurological: No numbness, tingling, No weakness, tremors or seizures Psychiatric: : No depression, No anxiety, No sleep disturbance, No Memory changes Lymphatic: No easy bruising, No bleeding tendencies , No swollen lymph nodes A 13-point Review of Systems was assessed, all of which are negative except for HPI or as indicated above. PHYSICAL EXAM: GENERAL: alert, weak, awake oriented x 3 HEENT: EOMI, Sclera non icteric, moist mucosa NECK: Supple, no JVD, trachea midline LUNGS: Clear breath sounds bilaterally. No wheezes HEART: Regular rate and rhythm. Normal S1 and S2, without murmurs ABD: Abdomen soft, nontender. Bowel sounds present EXT: No clubbing cyanosis or edema NEURO: Alert and oriented to person, follows commands Vital Signs (last 8hr) Date Time Temp Pulse Resp B/P (MAP) Pulse Ox O2 Delivery O2 Flow Rate FiO2 05/05/24 07:48 82 14 117/58 95 Room Air 05/05/24 07:30 94 Room Air* 0 21 05/05/24 07:18 98.4 61 16 134/59 95 Room Air 05/05/24 04:48 62 15 122/53 96 Room Air 05/05/24 04:18 53 16 118/60 92 Room Air 05/05/24 04:00 96 Room Air* 0 21 05/05/24 03:48 58 14 119/61 98 Room Air 05/05/24 03:36 62 16 121/72 95 Room Air 05/05/24 03:03 126 103/39 99 Room Air 05/05/24 03:00 105 19 98 Room Air 05/05/24 02:49 59 15 102/51 98 Room Air LABS: Hematology Labs: Test 05/05/24 03:41 Range/Units White Blood Count 5.2 # 4.8-10.8 K/uL Red Blood Count 4.81 4.50-6.20 MIL/uL Hemoglobin 15.0 14.0-18.0 g/dL Hematocrit 45.1 42-54 % Mean Corpuscular Volume 93.8 79-99 fL Mean Corpuscular Hemoglobin 31.2 27.0-33.0 pg Mean Corpuscular Hemoglobin Concent 33.3 32.0-36.0 g/dL Red Cell Distribution Width 12.4 11.0-15.5 % Platelet Count 132 130-400 K/uL Mean Platelet Volume 10.6 H 7.5-10.5 fL Immature Granulocyte % (Auto) 0.4 0-1 % Neutrophils (%) (Auto) 60.7 40.0-77.0 % Lymphocytes (%) (Auto) 24.9 21.0-51.0 % Monocytes (%) (Auto) 12.0 3.0-13.0 % Eosinophils (%) (Auto) 1.4 0.0-8.0 % Basophils (%) (Auto) 0.6 0.0-5.0 % Neutrophils # (Auto) 3.1 1.8-7.7 K/uL Lymphocytes # (Auto) 1.3 1.0-4.8 K/uL Monocytes # (Auto) 0.6 0.1-1.0 K/uL Eosinophils # (Auto) 0.07 0.00-0.70 K/uL Basophils # (Auto) 0.03 0.00-0.20 K/uL Absolute Immature Granulocyte (auto 0.02 0-1 K/uL Nucleated Red Blood Cells 0.0 0.0-0.19 % Chemistry Labs: Test 05/05/24 07:03 05/05/24 03:41 05/04/24 22:24 05/04/24 05:14 Range/Units Whole Blood Glucose 117 H 70-110 MG/DL Sodium Level 134 L 136-145 mmol/L Potassium Level 3.6 3.5-5.1 mmol/L Chloride Level 100 L 101-111 mmol/L Carbon Dioxide Level 29 21-32 mmol/L Blood Urea Nitrogen 27 H 7-18 mg/dL Creatinine 1.3 0.5-1.3 mg/dL Glomerular Filtration Rate Calc 54 >90 mL/min Random Glucose 112 H 70-105 mg/dL Total Calcium 8.4 L 8.5-10.1 mg/dL Phosphorus Level 3.9 2.5-4.9 mg/dL Magnesium Level 2.30 1.80-2.40 mg/dL Troponin I High Sensitivity 6883 *H 4-75 ng/L Hemoglobin A1c 7.7 H 4.0-6.0 % Estimated Average Glucose (eAG) 174 H 70-126 mg/dL Total Bilirubin 0.5 0.2-1.0 mg/dL Aspartate Amino Transf (AST/SGOT) 45 H 10-37 U/L Alanine Aminotransferase (ALT/SGPT) 23 12-78 U/L Alkaline Phosphatase 107 50-136 U/L Total Protein 7.1 6.0-8.3 g/dL Albumin 3.5 3.5-5.0 g/dL Triglycerides Level 109 30-200 mg/dL Cholesterol Level 185 <200 mg/dL LDL Cholesterol 116 H 0-99 mg/dL HDL Cholesterol 53 29-71 mg/dL Coagulation Labs: Test 05/04/24 16:47 05/04/24 05:14 Range/Units Activated Partial Thromboplast Time 46.1 H 26.3-35.5 SEC Prothrombin Time 10.9 9.6-11.6 SEC Prothromb Time International Ratio 1.01 0.85-1.15 Fibrinogen 524 *H 180-350 mg/dL DIAGNOSTICS / RADIOLOGY RESULTS: PATIENT: ERICA AMAYA MR#: [id number] : 1940 SEX: M AGE: 83 LOCATION: [facility] ORDER 7 STATUS: ADM IN REPORT#: [id number] SERVICE REASON: STEMI ORDERING PHYSICIAN: NAVEEN FRIEND MD PROCEDURE: ECHO [facility] - ECHO 2-D COMPLETE APPROVED REPORT EXAM: Two-dimensional and M-mode echocardiogram with Doppler and color Doppler. INDICATION ICD: ST-elevation CA 2D Dimensions RVDd 3.7 cm LVEF(%) 42.0 (>50%) LVED Vol(simp.) 99.0 mL IVSd 0.9 (0.7-1.1cm) FS(%) 21 % LVES Vol(simp.) 56.0 mL LVDd 4.4 (3.8-5.6cm) LA (2D) 3.7 (1.6-4.0cm) LVEF(%, simp.) 43 % PWd 1.0 (0.7-1.1cm) Ao Root(2D) 3.6 (2.0-3.7cm) LA ESV INDEX (4CH) 15.30 mL/m2 IVSs 1.3 cm LVOT diam 2.0 (1.8-2.4cm) LA ESV INDEX (2CH) 20.20 mL/m2 LVDs 3.5 (2.5-4.0cm) IVC diam 1.7 cm LA ESV INDEX (BP) 18.40 mL/m2 PWs 1.3 cm M-Mode Dimensions EPSS 0.8 cm LA (MM) 3.8 (1.6-4.0cm) Ao Root(MM) 2.9 (2.0-3.7cm) Aortic Valve AoV VTI 0.2 m Ao Mean GR 2.0 mmHg LVOT VTI 0.16 m MIRTHA (VMAX) 2.3 cm2 MIRTHA (VTI) 2.3 cm2 Mitral Valve MV E Vmax 71.1 cm/s DECEL Time 243 ms MV A Vmax 98.2 cm/s P 1/2 T 129 ms E/A ratio 0.7 MVA (PHT) 1.7 cm2 MR Max PG 55 mmHg TDI E/E' Medial 16.5 E/E' Lateral 12.9 Medial E' Peak V 4.30 cm/s Lateral E' Peak V 5.50 cm/s Pulmonary Valve PV VTI 0.15 m PV Mean GR 1 mmHg Left Ventricle The left ventricle is normal size. GLS -14% There is normal left ventricular wall thickness. LVEF is 40-45%. The left ventricular diastolic function is normal. Right Ventricle The right ventricle is normal size. The right ventricular systolic function is normal. Atria The left atrium size is normal. The right atrium size is normal. Aortic Valve The aortic valve is normal in structure. No aortic regurgitation is present. There is no aortic valvular stenosis. Mitral Valve The mitral valve is normal in structure. Mitral regurgitation is mild. There is no mitral valve stenosis. Tricuspid Valve The tricuspid valve is normal in structure. There is no tricuspid valve regurgitation noted. Pulmonic Valve The pulmonary valve is normal in structure. There is no pulmonic valvular regurgitation. Great Vessels The aortic root is normal in size. The IVC is normal in size and collapses >50% with inspiration. Pericardium There is no pericardial effusion. Conclusion The left ventricle is normal size. LVEF is 40-45%. The left ventricular diastolic function is normal. The right ventricle is normal size. The right ventricular systolic function is normal. The left atrium size is normal. The right atrium size is normal. Mitral regurgitation is mild. There is no pericardial effusion. DICTATED BY: FAZAL ZARAGOZA MD DATE: 05/04/24812 ELECTRONICALLY SIGNED BY: FAZAL ZARAGOZA MD DATE: 05/04/241052 PATIENT: ERICA AMAYA MR#: [id number] : 1940 SEX: M AGE: 83 LOCATION: [facility] ORDER 8 STATUS: ADM IN REPORT#: [id number] SERVICE 8 REASON: STEMI ORDERING PHYSICIAN: DENVER MARTIN CNP PROCEDURE: CXR1VW - CHEST 1VW CHEST 1VW REASON: STEMI COMPARISON: None. FINDINGS: Single view of the chest was obtained. Lungs are clear. Heart size is normal. There is no pulmonary vascular congestion. Mediastinum and bony thorax appear unremarkable. IMPRESSION: 1. Normal single view chest x-ray. DICTATED BY: NICHOL OVALLE MD DATE: 05/04/241022 ELECTRONICALLY SIGNED BY: NICHOL OVALLE MD DATE: 05/04/24 102 PLAN NEURO: Minimize central acting medications as possible Maintain fall precautions Adecuate light during the day and minimize interruptions trhough the night to prevent acute delirrium PULMONARY: Supplemental 02 as needed Titrate Fio2 to keep Spo2 > or = 90% DuoNebs and CPT as needed IS hourly while awake for pulmonary hygiene Out of bed to chair as tolerated CARDIOVASCULAR: pending CABG Follow hemodynamics. Titrate vasopressor to keep MAP >65 or systolic blood pressure >95mmHg Consult to CV surgery Consult to cardiology DRIPS: Heparin Nitroglycerin LINES: PIV GI & NUTRITION: Continue nutritional support Aspirations precautions Prokinetic agents and laxatives as needed KIDNEYS & ELECTROLYTES: Strict monitoring of intake and output Daily weights Avoid nephrotoxic agents Monitor electrolytes and replace as needed Goal urine output of 30mL/hr or 0.5mL/kg/hr ENDOCRINE: Maintain blood glucose between 100-180 at all times. Insulin sliding scale for blood glucose management Check HgbA1C Long acting insulin with Lantus INFECTIOUS DISEASE: Trend temperature. Sim-culture if febrile. HEMATOLOGY & COAGULATION: Monitor H&H. Keep Hgb > 7 Transfuse 1 unit of PRBC for Hgb < 7 Transfuse 1 pack of platelets of platelets < 20, 000 Watch for any signs and symptoms of bleeding SKIN: Pressure ulcer prevention per facility protocol Rehab: PT/OT Prophylaxis: GI: famotidine DVT: heparin drip Code Status: Full Resuscitation Disposition: Other: Total patient care time exceeds 35 minutes excluding all procedures. Case was discussed and seen with my supervising physician. The above plan was formulated and agreed upon. LETICIA ANDRADE MD May 05, 2024 10:40 DENVER MARTIN CNP May 05, 2024 21:29
[2024-05-05] MEDS ORDERED: LACTULOSE 20 GM/30 ML UDCUP PO PRN (11:30)
--- NOTE | 2024-05-05 11:43 | PN ---
[facility] CARDIOLOGY PROGRESS NOTE Date Patient Seen: May 05, 2024 Time of Visit: 11:42 Interval History: [Overnight, he was intermittently placed on nitro gtt due to chest pain. ] Physical Examination: GENERAL: [No acute distress.] HEAD: [Normal with no signs of head trauma.] EYES: [PERRLA, EOMI, conjunctiva and sclera normal.] ENT: [Hearing grossly intact, normal oropharynx.] NECK: [Supple without JVD. There is no tenderness, lymphadenopathy, or masses. No thyromegaly. Normal carotid upstrokes without bruits.] LUNGS: [Clear breath sounds bilaterally. There are right basilar rales one third of the way up the chest. No wheezes, or rhonchi.] HEART: [Normal rate and rhythm. Normal S1 and S2 without mumurs, gallop or rub.] VASC: [Peripheral pulses +2 bilaterally.] ABD: [Bowel sounds normal, soft, nontender, no masses, no organomegaly. No audible bruits.] : [Not examined] LYMPH: [No lymphadenopathy noted.] EXT: [No clubbing, cyanosis or edema.] SKIN: [No rashes or lesions noted.] NEURO: [Awake, alert, and oriented x3. No focal sensory or strength deficits noted.] Laboratory: [ ] Hematology Labs: Test 05/05/24 03:41 Range/Units White Blood Count 5.2 # 4.8-10.8 K/uL Red Blood Count 4.81 4.50-6.20 MIL/uL Hemoglobin 15.0 14.0-18.0 g/dL Hematocrit 45.1 42-54 % Mean Corpuscular Volume 93.8 79-99 fL Mean Corpuscular Hemoglobin 31.2 27.0-33.0 pg Mean Corpuscular Hemoglobin Concent 33.3 32.0-36.0 g/dL Red Cell Distribution Width 12.4 11.0-15.5 % Platelet Count 132 130-400 K/uL Mean Platelet Volume 10.6 H 7.5-10.5 fL Immature Granulocyte % (Auto) 0.4 0-1 % Neutrophils (%) (Auto) 60.7 40.0-77.0 % Lymphocytes (%) (Auto) 24.9 21.0-51.0 % Monocytes (%) (Auto) 12.0 3.0-13.0 % Eosinophils (%) (Auto) 1.4 0.0-8.0 % Basophils (%) (Auto) 0.6 0.0-5.0 % Neutrophils # (Auto) 3.1 1.8-7.7 K/uL Lymphocytes # (Auto) 1.3 1.0-4.8 K/uL Monocytes # (Auto) 0.6 0.1-1.0 K/uL Eosinophils # (Auto) 0.07 0.00-0.70 K/uL Basophils # (Auto) 0.03 0.00-0.20 K/uL Absolute Immature Granulocyte (auto 0.02 0-1 K/uL Nucleated Red Blood Cells 0.0 0.0-0.19 % Chemistry Labs: Test 05/05/24 07:03 05/05/24 03:41 05/04/24 22:24 05/04/24 05:14 Range/Units Whole Blood Glucose 117 H 70-110 MG/DL Sodium Level 134 L 136-145 mmol/L Potassium Level 3.6 3.5-5.1 mmol/L Chloride Level 100 L 101-111 mmol/L Carbon Dioxide Level 29 21-32 mmol/L Blood Urea Nitrogen 27 H 7-18 mg/dL Creatinine 1.3 0.5-1.3 mg/dL Glomerular Filtration Rate Calc 54 >90 mL/min Random Glucose 112 H 70-105 mg/dL Total Calcium 8.4 L 8.5-10.1 mg/dL Phosphorus Level 3.9 2.5-4.9 mg/dL Magnesium Level 2.30 1.80-2.40 mg/dL Troponin I High Sensitivity 6883 *H 4-75 ng/L Hemoglobin A1c 7.7 H 4.0-6.0 % Estimated Average Glucose (eAG) 174 H 70-126 mg/dL Total Bilirubin 0.5 0.2-1.0 mg/dL Aspartate Amino Transf (AST/SGOT) 45 H 10-37 U/L Alanine Aminotransferase (ALT/SGPT) 23 12-78 U/L Alkaline Phosphatase 107 50-136 U/L Total Protein 7.1 6.0-8.3 g/dL Albumin 3.5 3.5-5.0 g/dL Triglycerides Level 109 30-200 mg/dL Cholesterol Level 185 <200 mg/dL LDL Cholesterol 116 H 0-99 mg/dL HDL Cholesterol 53 29-71 mg/dL Coagulation Labs: Test 05/04/24 16:47 05/04/24 05:14 Range/Units Activated Partial Thromboplast Time 46.1 H 26.3-35.5 SEC Prothrombin Time 10.9 9.6-11.6 SEC Prothromb Time International Ratio 1.01 0.85-1.15 Fibrinogen 524 *H 180-350 mg/dL Diagnostics / Radiology: [Copy/Paste Echos/Imaging Report here] Impression and Plan: [#CAD pending CABG -h/o GISSELLE in 2017 -c/w heparin and nitro gtt -c/w asa 81 mg qd, atorvastatin 40 mg qhs -2D echo showed mid range LVEF 40-45% -pending CABG Aneta Zaragoza MD ] ANETA ZARAGOZA MD May 05, 2024 11:43
[2024-05-05] MEDS: LACTULOSE 20 GM/30 ML UDCUP PO PRN (16:57)
[2024-05-05] MEDS: doCUSate SODIUM 100 MG CAP PO SCH (16:57)
[2024-05-05] MEDS: polyETHYLene GLYCol 3350 17 GM POWD.PACK PO SCH (16:57)
--- NOTE | 2024-05-05 21:30 | PN ---
[facility] PROGRESS NOTE Date Patient Seen: May 05, 2024 Time of Visit: 09:29 Supervising Physician: Dr. Greene Primary Care Physician: Non established- lives in [place]- self pay Outpatient Specialists: NA Inpatient Consults: Dr. Fabricio Greene, Dr. Augusto Zaragoza, Dr. Garcia PROBLEM LIST: Lateral wall ST elevation SD Status post left heart cardiac catheterization on 05/03/[address] Marin in [place] [facility] Multivessel coronary artery disease Acute coronary syndrome Elevated troponin Chest pain related to ACS Acute kidney injury due to ATN from dehydration Hyperglycemia in the setting of T2DM H/O Coronary artery disease status post PCI stent remote, hypertension, hyperlipidemia, Diabetes mellitus type II INTERVAL HISTORY: 05/05/2024 Yesterday, Dr. Garcia met with the patient to discuss the potential benefits and risks of CABG surgery. Risks explained included los of limb, loss of life, bleeding, infection, stroke, and other complications. the patient demonstrated understanding of the risks and benefits but requested additional time to consider the surgery due to his advanced age. Dr Garcia believes that the patient would likely benefit from the surgery, given his physical strength despite his age, but expressed willingness to honor the patient's decision. Today, the patient is alert and oriented. He reported that he discussed the situation with his family and has decided to proceed with the surgery. La boratory results, WBC 5.2, Hemoglobin 15.0, Hematocrit 45.1, Platelets 132, Sodium 134, Potassium 3.6, BUN 27, Creatinine 1.3, GFR 54, Glucose 112, Troponin 6883. He has been weaned off of nitroglycerin drip. Continue heparin drip. Asa, statin, Echo with LVEF 40-45%. REVIEW OF SYSTEMS: Constitutional: No appetite loss, No fevers, chills , No night sweats, No weakness, fatigue Eye: No vision change, No redness, pain or discharge ENT: No hearing loss, ear pain or discharge, No nose bleeds, No sore throat, Neck: No swelling. pain or stiffness Respiratory: No cough, shortness of breath, wheezing Cardiovascular: Reports mild chest pain, decreased in intensity. No palpitations or syncope. Gastrointestinal: No abdominal pain, No nausea, vomiting, No diarrhea, constipation Genitourinary: No painful urination, No blood in urine, No urinary incontinence, No frequency or urgency Musculoskeletal: No joint pain, muscle pain, swelling or stiffness Neurological: No numbness, tingling, No weakness, tremors or seizures Psychiatric: : No depression, No anxiety, No sleep disturbance, No Memory changes Lymphatic: No easy bruising, No bleeding tendencies , No swollen lymph nodes A 13-point Review of Systems was assessed, all of which are negative except for HPI or as indicated above. PHYSICAL EXAM: GENERAL: alert, weak, awake oriented x 3 HEENT: EOMI, Sclera non icteric, moist mucosa NECK: Supple, no JVD, trachea midline LUNGS: Clear breath sounds bilaterally. No wheezes HEART: Regular rate and rhythm. Normal S1 and S2, without murmurs ABD: Abdomen soft, nontender. Bowel sounds present EXT: No clubbing cyanosis or edema NEURO: Alert and oriented to person, follows commands Vital Signs (last 8hr) Date Time Temp Pulse Resp B/P (MAP) Pulse Ox O2 Delivery O2 Flow Rate FiO2 05/05/24 20:00 93 Room Air* 0 21 05/05/24 19:48 98.8 102 19 124/69 96 Room Air 05/05/24 17:48 64 23 143/86 95 Room Air 05/05/24 17:19 63 16 134/72 97 05/05/24 17:12 95 Room Air* 0 21 05/05/24 16:48 98.6 64 13 129/72 94 Room Air 05/05/24 16:18 67 18 119/75 95 05/05/24 15:14 66 20 138/84 96 Room Air 05/05/24 13:48 64 23 120/70 86 LABS: Hematology Labs: Test 05/05/24 03:41 Range/Units White Blood Count 5.2 # 4.8-10.8 K/uL Red Blood Count 4.81 4.50-6.20 MIL/uL Hemoglobin 15.0 14.0-18.0 g/dL Hematocrit 45.1 42-54 % Mean Corpuscular Volume 93.8 79-99 fL Mean Corpuscular Hemoglobin 31.2 27.0-33.0 pg Mean Corpuscular Hemoglobin Concent 33.3 32.0-36.0 g/dL Red Cell Distribution Width 12.4 11.0-15.5 % Platelet Count 132 130-400 K/uL Mean Platelet Volume 10.6 H 7.5-10.5 fL Immature Granulocyte % (Auto) 0.4 0-1 % Neutrophils (%) (Auto) 60.7 40.0-77.0 % Lymphocytes (%) (Auto) 24.9 21.0-51.0 % Monocytes (%) (Auto) 12.0 3.0-13.0 % Eosinophils (%) (Auto) 1.4 0.0-8.0 % Basophils (%) (Auto) 0.6 0.0-5.0 % Neutrophils # (Auto) 3.1 1.8-7.7 K/uL Lymphocytes # (Auto) 1.3 1.0-4.8 K/uL Monocytes # (Auto) 0.6 0.1-1.0 K/uL Eosinophils # (Auto) 0.07 0.00-0.70 K/uL Basophils # (Auto) 0.03 0.00-0.20 K/uL Absolute Immature Granulocyte (auto 0.02 0-1 K/uL Nucleated Red Blood Cells 0.0 0.0-0.19 % Chemistry Labs: Test 05/05/24 21:08 05/05/24 03:41 05/04/24 22:24 05/04/24 05:14 Range/Units Whole Blood Glucose 157 H 70-110 MG/DL Sodium Level 134 L 136-145 mmol/L Potassium Level 3.6 3.5-5.1 mmol/L Chloride Level 100 L 101-111 mmol/L Carbon Dioxide Level 29 21-32 mmol/L Blood Urea Nitrogen 27 H 7-18 mg/dL Creatinine 1.3 0.5-1.3 mg/dL Glomerular Filtration Rate Calc 54 >90 mL/min Random Glucose 112 H 70-105 mg/dL Total Calcium 8.4 L 8.5-10.1 mg/dL Phosphorus Level 3.9 2.5-4.9 mg/dL Magnesium Level 2.30 1.80-2.40 mg/dL Troponin I High Sensitivity 6883 *H 4-75 ng/L Hemoglobin A1c 7.7 H 4.0-6.0 % Estimated Average Glucose (eAG) 174 H 70-126 mg/dL Total Bilirubin 0.5 0.2-1.0 mg/dL Aspartate Amino Transf (AST/SGOT) 45 H 10-37 U/L Alanine Aminotransferase (ALT/SGPT) 23 12-78 U/L Alkaline Phosphatase 107 50-136 U/L Total Protein 7.1 6.0-8.3 g/dL Albumin 3.5 3.5-5.0 g/dL Triglycerides Level 109 30-200 mg/dL Cholesterol Level 185 <200 mg/dL LDL Cholesterol 116 H 0-99 mg/dL HDL Cholesterol 53 29-71 mg/dL Coagulation Labs: Test 05/05/24 17:03 05/04/24 05:14 Range/Units Activated Partial Thromboplast Time 37.6 H 26.3-35.5 SEC Prothrombin Time 10.9 9.6-11.6 SEC Prothromb Time International Ratio 1.01 0.85-1.15 Fibrinogen 524 *H 180-350 mg/dL DIAGNOSTICS / RADIOLOGY RESULTS: [ ] PLAN NEURO: Minimize central acting medications as possible Maintain fall precautions Adecuate light during the day and minimize interruptions trhough the night to prevent acute delirrium PULMONARY: Supplemental 02 as needed Titrate Fio2 to keep Spo2 > or = 90% DuoNebs and CPT as needed IS hourly while awake for pulmonary hygiene Out of bed to chair as tolerated CARDIOVASCULAR: pending CABG Follow hemodynamics. Titrate vasopressor to keep MAP >65 or systolic blood pressure >95mmHg Consult to CV surgery Consult to cardiology DRIPS: Heparin Nitroglycerin LINES: PIV GI & NUTRITION: Continue nutritional support Aspirations precautions Prokinetic agents and laxatives as needed KIDNEYS & ELECTROLYTES: Strict monitoring of intake and output Daily weights Avoid nephrotoxic agents Monitor electrolytes and replace as needed Goal urine output of 30mL/hr or 0.5mL/kg/hr ENDOCRINE: Maintain blood glucose between 100-180 at all times. Insulin sliding scale for blood glucose management Check HgbA1C Long acting insulin with Lantus INFECTIOUS DISEASE: Trend temperature. Sim-culture if febrile. HEMATOLOGY & COAGULATION: Monitor H&H. Keep Hgb > 7 Transfuse 1 unit of PRBC for Hgb < 7 Transfuse 1 pack of platelets of platelets < 20, 000 Watch for any signs and symptoms of bleeding SKIN: Pressure ulcer prevention per facility protocol Rehab: PT/OT Prophylaxis: GI: famotidine DVT: heparin drip Code Status: Full Resuscitation Disposition: Other: Total patient care time exceeds 35 minutes excluding all procedures. Case was discussed and seen with my supervising physician. The above plan was formulated and agreed upon. DENVER MARTIN [employer] W[employer]ER May 05, 2024 21:30
[2024-05-06] VITALS (43 sets, daily range): BP systolic 104–285; BP diastolic 48–283; PULSE 60–114; RESP 10–19; TEMP 96.8–98.7; O2SAT 95–100
[2024-05-06 03:51] LABS: HEMATOCRIT 46.5 % (42-54); MEAN CORPUSCULAR HEMOGLOBIN 31.5 pg (27.0-33.0); MEAN CORPUSCULAR HGB CONC 34.2 g/dL (32.0-36.0); MEAN CORPUSCULAR VOLUME 92.1 fL (79-99); RED BLOOD CELL COUNT(AUTO) 5.05 MIL/uL (4.50-6.20); RED CELL DISTRIBUTION WIDTH 12.4 % (11.0-15.5)
[2024-05-06 04:00] LABS: CREATININE 1.4 mg/dL (0.5-1.3); INR 1.02 (0.85-1.15); POTASSIUM 4.5 mmol/L (3.5-5.1)
[2024-05-06 04:01] LABS: PARTIAL THROMBOPLASTIN TIME 54.6 SEC (26.3-35.5)
[2024-05-06 04:02] LABS: ALBUMIN 3.3 g/dL (3.5-5.0); BILIRUBIN,TOTAL 0.5 mg/dL (0.2-1.0); TOTAL PROTEIN, SERUM 6.9 g/dL (6.0-8.3)
--- NOTE | 2024-05-06 06:26 | EKG ---
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
[2024-05-06] MEDS ORDERED: EPINEPHrine PF 1MG (1:1,000) 10 MG in 0.9% NACL 250ML 240 ML IV PRN ×2 (07:00→12:30)
[2024-05-06] MEDS ORDERED: aminoCAProic ACID 5,000MG VIAL 15,000 MG in 0.9% NACL 500ML IV.SOLN 420 ML IV PRN (07:00)
[2024-05-06] MEDS ORDERED: NOREPINEPHRIN 8MG/250ML NS 250 ML IV PRN ×2 (07:00→13:00)
[2024-05-06] MEDS ORDERED: NITROGLYCERIN 50MG/D5W 250ML 1 BOT ONE (07:14)
[2024-05-06] MEDS ORDERED: LIDOCAINE 2G/250ML 250 ML IV ONE (07:15)
--- NOTE | 2024-05-06 09:20 | HMCIMG ---
CHEST 1VW REASON: pre op CABG COMPARISON: 05/04/2024 FINDINGS: Single view of the chest was obtained. Lungs are clear. Heart size is normal. There is no pulmonary vascular congestion. Mediastinum and bony thorax appear unremarkable. IMPRESSION: 1. Normal single view chest x-ray.
[2024-05-06] MEDS ORDERED: PAPAVERINE HCL 30 MG/ML 2ML VIAL ONE (09:27)
[2024-05-06] MEDS ORDERED: ceFAZolin SODIUM 1 GM VIAL ONE ×2 (09:27→11:12)
[2024-05-06] MEDS ORDERED: HEParin-NS 1,000 UNIT/500 ML 500 ML IV ONE (09:27)
--- NOTE | 2024-05-06 10:08 | PN ---
[facility] CARDIOLOGY PROGRESS NOTE Date Patient Seen: May 06, 2024 Time of Visit: 10:07 Interval History: [No events overnight, pending CABG. ] Physical Examination: GENERAL: [No acute distress.] HEAD: [Normal with no signs of head trauma.] EYES: [PERRLA, EOMI, conjunctiva and sclera normal.] ENT: [Hearing grossly intact, normal oropharynx.] NECK: [Supple without JVD. There is no tenderness, lymphadenopathy, or masses. No thyromegaly. Normal carotid upstrokes without bruits.] LUNGS: [Clear breath sounds bilaterally. There are right basilar rales one third of the way up the chest. No wheezes, or rhonchi.] HEART: [Normal rate and rhythm. Normal S1 and S2 without mumurs, gallop or rub.] VASC: [Peripheral pulses +2 bilaterally.] ABD: [Bowel sounds normal, soft, nontender, no masses, no organomegaly. No audible bruits.] : [Not examined] LYMPH: [No lymphadenopathy noted.] EXT: [No clubbing, cyanosis or edema.] SKIN: [No rashes or lesions noted.] NEURO: [Awake, alert, and oriented x3. No focal sensory or strength deficits noted.] Laboratory: [ ] Hematology Labs: Test 05/06/24 03:32 05/05/24 03:41 Range/Units White Blood Count 5.0 4.8-10.8 K/uL Red Blood Count 5.05 4.50-6.20 MIL/uL Hemoglobin 15.9 14.0-18.0 g/dL Hematocrit 46.5 42-54 % Mean Corpuscular Volume 92.1 79-99 fL Mean Corpuscular Hemoglobin 31.5 27.0-33.0 pg Mean Corpuscular Hemoglobin Concent 34.2 32.0-36.0 g/dL Red Cell Distribution Width 12.4 11.0-15.5 % Platelet Count 125 L 130-400 K/uL Mean Platelet Volume 10.4 7.5-10.5 fL Nucleated Red Blood Cells 0.0 0.0-0.19 % Immature Granulocyte % (Auto) 0.4 0-1 % Neutrophils (%) (Auto) 60.7 40.0-77.0 % Lymphocytes (%) (Auto) 24.9 21.0-51.0 % Monocytes (%) (Auto) 12.0 3.0-13.0 % Eosinophils (%) (Auto) 1.4 0.0-8.0 % Basophils (%) (Auto) 0.6 0.0-5.0 % Neutrophils # (Auto) 3.1 1.8-7.7 K/uL Lymphocytes # (Auto) 1.3 1.0-4.8 K/uL Monocytes # (Auto) 0.6 0.1-1.0 K/uL Eosinophils # (Auto) 0.07 0.00-0.70 K/uL Basophils # (Auto) 0.03 0.00-0.20 K/uL Absolute Immature Granulocyte (auto 0.02 0-1 K/uL Chemistry Labs: Test 05/06/24 03:32 05/05/24 21:08 05/05/24 03:41 05/04/24 22:24 Range/Units Sodium Level 134 L 136-145 mmol/L Potassium Level 4.5 3.5-5.1 mmol/L Chloride Level 100 L 101-111 mmol/L Carbon Dioxide Level 29 21-32 mmol/L Blood Urea Nitrogen 27 H 7-18 mg/dL Creatinine 1.4 H 0.5-1.3 mg/dL Glomerular Filtration Rate Calc 50 >90 mL/min Random Glucose 104 70-105 mg/dL Total Calcium 8.7 8.5-10.1 mg/dL Total Bilirubin 0.5 0.2-1.0 mg/dL Aspartate Amino Transf (AST/SGOT) 27 10-37 U/L Alanine Aminotransferase (ALT/SGPT) 20 12-78 U/L Alkaline Phosphatase 86 50-136 U/L B-Type Natriuretic Peptide 438 H 0-100 pg/mL Total Protein 6.9 6.0-8.3 g/dL Albumin 3.3 L 3.5-5.0 g/dL Whole Blood Glucose 157 H 70-110 MG/DL Phosphorus Level 3.9 2.5-4.9 mg/dL Magnesium Level 2.30 1.80-2.40 mg/dL Troponin I High Sensitivity 6883 *H 4-75 ng/L Coagulation Labs: Test 05/06/24 03:32 Range/Units Prothrombin Time 11.0 9.6-11.6 SEC Prothromb Time International Ratio 1.02 0.85-1.15 Activated Partial Thromboplast Time 54.6 H 26.3-35.5 SEC Diagnostics / Radiology: [Copy/Paste Echos/Imaging Report here] Impression and Plan: [#CAD pending CABG -h/o GISSELLE in 2017 -c/w heparin and nitro gtt -c/w asa 81 mg qd, atorvastatin 40 mg qhs -2D echo showed mid range LVEF 40-45% -pending CABG, last received plavix 600 mg x1 on 06/04 Aneta Zaragoza MD ] ANETA ZARAGOZA MD May 06, 2024 10:08
[2024-05-06] MEDS ORDERED: HEParin 10,000 UNIT/10ML (1,000 UNIT/ML) VIAL ONE ×2 (11:24→11:55)
[2024-05-06] MEDS ORDERED: SODIUM BICARB 50MEQ 50ML VIAL 200 ML ONE ×2 (11:24→12:27)
[2024-05-06] MEDS ORDERED: LIDOCAINE PF 100MG/5ML (2%) SYRINGE 5ML ONE ×2 (11:24→12:45)
[2024-05-06] MEDS ORDERED: PROTamine SULFate 10 MG/ML 25ML VIAL IV ONE (11:24)
[2024-05-06] MEDS ORDERED: NOREPINEPHRINE BITARTRATE 1 MG/1 ML ML IV ONE (11:24)
[2024-05-06] MEDS ORDERED: EPINEPHrine PF 1MG (1:1,000) 1 MG/ML AMP ONE (11:24)
[2024-05-06] MEDS ORDERED: FENTanyl CITRate PF 50 MCG/1 ML 20ML VIAL IJ ONE (11:25)
[2024-05-06] MEDS ORDERED: rocuRONium bROMide 10MG/1ML 5ML VL ONE (11:25)
[2024-05-06] MEDS ORDERED: proPOFol 10 MG/ML 20ML VIAL IV ONE (11:25)
[2024-05-06] MEDS ORDERED: ETOMIDATE 20MG VIAL ONE (11:26)
[2024-05-06] MEDS: ceFAZolin SODIUM 2 GM VIAL IVPB ONE (11:55)
[2024-05-06] MEDS ORDERED: DELNIDO FORMULA 0 BAG IV ONE (11:56)
[2024-05-06 12:13] LABS: ABG BASE EXCESS -4.9 mmol/L (-2.0-3.0); ABG HCO3 20.7 mmol/L (21.0-28.0); ABG OXYGEN SATURATION 99.6 % (94.0-98.0); ABG PCO2 40 mmHg (35-48); ABG PH 7.329 (7.350-7.450); CARBON MONOXIDE 0.3 % (0.5-1.5); DEVICE COMMENT 1; HHb 0.4; PO2, ARTERIAL BG 364.1 mmHg (83.0-108.0)
[2024-05-06] MEDS ORDERED: proPOFol 1000 MG/100 ML 100 ML IV PRN (12:30)
[2024-05-06] MEDS ORDERED: 0.9% NACL 500ML IV.SOLN 500 ML IV SCH (12:30)
[2024-05-06] MEDS ORDERED: INSULIN REGULAR, HUMAN 3ML 100 UNIT in 0.9%NACL 100ML 99 ML IV SCH (12:30)
[2024-05-06] MEDS ORDERED: GLUCAGON 1MG KIT 1 MG ML IM PRN (12:30)
[2024-05-06] MEDS ORDERED: aminoCAProic ACID 5,000MG VIAL 15,000 MG in 0.9% NACL 250ML 250 ML IV SCH (12:30)
[2024-05-06] MEDS ORDERED: MAGNESIUM HYDROXIDE 30 ML/UDCUP PO PRN (12:30)
[2024-05-06] MEDS ORDERED: morPHINE 2 MG SYG IV PRN ×2 (12:30→13:00)
[2024-05-06] MEDS ORDERED: DEXTROSE 50%-WATER 50 ML DISP.SYRIN IV PRN (12:30)
[2024-05-06] MEDS ORDERED: poTASSium PHOS 15 mMOL+NS250ML 250 ML IV PRN (12:30)
[2024-05-06] MEDS ORDERED: traMADol HCL 50 MG TABLET PO PRN (12:30)
[2024-05-06] MEDS ORDERED: morPHINE 4 MG SYG IV PRN (12:30)
[2024-05-06] MEDS ORDERED: acetaMINOPHEN 650 MG SUPPOSITORY RC PRN (12:30)
[2024-05-06] MEDS ORDERED: 0.9%NACL 10ML VIAL IVP PRN (12:30)
[2024-05-06] MEDS ORDERED: NOREPINEPHRINE BITARTRATE 8 MG in DEXTROSE 5%-WATER 250 ML IV PRN (12:30)
[2024-05-06] MEDS ORDERED: NITROGLYCERIN 50MG/D5W 250ML 250 BOT IV SCH (12:30)
[2024-05-06] MEDS ORDERED: acetaMINOPHEN 325 MG TAB PO PRN (12:30)
[2024-05-06] MEDS ORDERED: AMIOdarone 150MG VIAL ONE (12:35)
[2024-05-06] MEDS ORDERED: ATROPINE 1MG SYG IVP ONE (12:46)
[2024-05-06 12:54] LABS: ABG BASE EXCESS -1.1 mmol/L (-2.0-3.0); ABG HCO3 23.9 mmol/L (21.0-28.0); ABG OXYGEN SATURATION 99.2 % (94.0-98.0); ABG PCO2 41 mmHg (35-48); ABG PH 7.385 (7.350-7.450); CARBON MONOXIDE 0.3 % (0.5-1.5); DEVICE COMMENT 2; HHb 0.8; PO2, ARTERIAL BG 351.9 mmHg (83.0-108.0)
[2024-05-06] MEDS ORDERED: ATROPINE 0.4MG VIAL IJ ONE (13:05)
[2024-05-06 13:32] LABS: ABG BASE EXCESS -4.3 mmol/L (-2.0-3.0); ABG HCO3 18.8 mmol/L (21.0-28.0); ABG OXYGEN SATURATION 99.1 % (94.0-98.0); ABG PCO2 29 mmHg (35-48); ABG PH 7.427 (7.350-7.450); CARBON MONOXIDE 0.2 % (0.5-1.5); DEVICE COMMENT 3; HHb 0.9; PO2, ARTERIAL BG 374.5 mmHg (83.0-108.0)
[2024-05-06] MEDS ORDERED: PoTASSium chloRIDE 20MEQ/100ML 100 ML IV ONE (14:22)
[2024-05-06 14:41] LABS: ABG BASE EXCESS 3.8 mmol/L (-2.0-3.0); ABG HCO3 26.7 mmol/L (21.0-28.0); ABG OXYGEN SATURATION 99.1 % (94.0-98.0); ABG PCO2 34 mmHg (35-48); ABG PH 7.508 (7.350-7.450); CARBON MONOXIDE 0.3 % (0.5-1.5); DEVICE COMMENT 4; HHb 0.9; PO2, ARTERIAL BG 383.3 mmHg (83.0-108.0)
[2024-05-06 14:59] LABS: ABG BASE EXCESS -0.8 mmol/L (-2.0-3.0); ABG HCO3 22.4 mmol/L (21.0-28.0); ABG OXYGEN SATURATION 97.6 % (94.0-98.0); ABG PCO2 33 mmHg (35-48); ABG PH 7.453 (7.350-7.450); CARBON MONOXIDE 0.3 % (0.5-1.5); DEVICE COMMENT 5; HHb 2.4; PO2, ARTERIAL BG 108.9 mmHg (83.0-108.0)
[2024-05-06] MEDS ORDERED: ALBUMIN (HUMAN) 5% 250 ML IV ONE ×2 (15:03→15:13)
--- NOTE | 2024-05-06 15:25 | OP ---
DATE OF PROCEDURE: 05/06/2024 TIME: 3:00 p.m. PREOPERATIVE DIAGNOSIS: Coronary artery disease. POSTOPERATIVE DIAGNOSIS: Coronary artery disease. PROCEDURES PERFORMED: 1. Coronary artery bypass grafting x3 with left internal mammary artery to left anterior descending coronary artery, vein graft bypass to distal left anterior descending coronary artery and vein graft bypass to obtuse marginal/ramus. 2. Insertion of intraaortic balloon pump via the right common femoral artery. SURGEON: Mariusz Garcia MD. DESCRIPTION OF PROCEDURE: Following anesthesia induction without any complication and progression of the operative field, saphenous vein was endoscopically harvested from the left leg. The mediastinum was entered through a median sternotomy incision. Total heparin dose was given to the patient. Subsequently, an end-to-side anastomosis between the left internal mammary artery and the left anterior descending coronary artery was performed in end-to-side fashion using 7-0 Prolene suture. After that, the venous anastomosis was performed to the distal left anterior descending coronary artery as there was a second lesion in the mid LAD that had to be bypassed so we performed a vein graft bypass to the left anterior descending distally using 7-0 Prolene suture. Lastly, we performed a vein graft bypass to the obtuse marginal coronary artery in an end-to-side fashion using 7-0 Prolene suture. After that, 2 proximal anastomoses were performed in the ascending aorta and the saphenous vein graft in an end-to-side fashion using 6-0 Prolene suture and the use of a partial occlusion clamp. After that, the clamp was released, the grafts were deaired with a de-airing needle. Subsequently, we inserted an intraaortic balloon pump via the right common femoral artery due to the very poor target that this patient had very calcified vessels, we went to increase perfusion to the heart. After that, a small dose of protamine was given to the patient. The grafts were checked with Doppler and all of them had excellent diastolic flow. Subsequently, hemostasis was obtained, two chest tubes were inserted, one in the left pleura and one in the mediastinum. After that, the sternum was closed with 7 wires. The fascia was closed with #1 Vicryl and the skin was closed with 4-0 Monocryl suture. I was present throughout the entire operation. The patient tolerated the operation well and transferred to the intensive care unit in stable condition. TID: [id number] RECEIPT: [id number]
[2024-05-06 15:30] LABS: ABG BASE EXCESS -2.5 mmol/L (-2.0-3.0); ABG HCO3 22.7 mmol/L (21.0-28.0); ABG OXYGEN SATURATION 96.1 % (94.0-98.0); ABG PCO2 41 mmHg (35-48); ABG PH 7.366 (7.350-7.450); CARBON MONOXIDE 0.2 % (0.5-1.5); HHb 3.9; PO2, ARTERIAL BG 92.6 mmHg (83.0-108.0); VENT MODE, BG AMBU (ROOM AIR)
[2024-05-06 15:37] LABS: HEMATOCRIT 35.5 % (42-54); MEAN CORPUSCULAR HEMOGLOBIN 31.3 pg (27.0-33.0); MEAN CORPUSCULAR HGB CONC 34.1 g/dL (32.0-36.0); MEAN CORPUSCULAR VOLUME 91.7 fL (79-99); RED BLOOD CELL COUNT(AUTO) 3.87 MIL/uL (4.50-6.20); RED CELL DISTRIBUTION WIDTH 12.5 % (11.0-15.5); WHITE BLOOD COUNT (AUTO) 17.9 K/uL (4.8-10.8)
--- NOTE | 2024-05-06 15:48 | HMCIMG ---
CHEST 1VW REASON: s/p CABG COMPARISON: 05/06/2024 FINDINGS: There is been an interval median sternotomy. Tubes and lines appear in good position including the ET tube, ETT is 1 cm below midclavicular point, 3.5 cm above the will. There is mild bibasilar atelectasis. Heart size is stable with no vascular congestion. There is no pneumothorax. IMPRESSION: 1. Tubes and lines in good position including the ET tube. 2. Mild bibasilar atelectasis.
[2024-05-06 15:54] LABS: INR 1.16 (0.85-1.15); PROTHROMBIN TIME 12.4 SEC (9.6-11.6)
[2024-05-06 15:56] LABS: PARTIAL THROMBOPLASTIN TIME 25.4 SEC (26.3-35.5)
[2024-05-06] MEDS: SODIUM BICARB 50MEQ 50ML VIAL IV PRN (15:57)
[2024-05-06 15:58] LABS: MAGNESIUM 1.4 mg/dL (1.80-2.40); PHOSPHORUS 4.2 mg/dL (2.5-4.9); POTASSIUM 4.7 mmol/L (3.5-5.1)
[2024-05-06] MEDS: CALCIUM GLUC 1GM 1 GM in 0.9%NACL 50ML 50 ML IV PRN (15:58)
[2024-05-06] MEDS: ASPIRIN 81MG CHEW TAB NG ONE (16:01)
[2024-05-06] MEDS: 0.9%NACL 1000ML 1,000 ML IV SCH (16:01)
[2024-05-06] MEDS: dexmedeTOMIDine 400MCG/NS100ML IV SCH (16:20)
[2024-05-06 16:44] LABS: ABG BASE EXCESS -4.7 mmol/L (-2.0-3.0); ABG HCO3 20.9 mmol/L (21.0-28.0); ABG OXYGEN SATURATION 96.2 % (94.0-98.0); ABG PCO2 41 mmHg (35-48); CARBON MONOXIDE 0.6 % (0.5-1.5); HHb 3.8; PO2, ARTERIAL BG 97.5 mmHg (83.0-108.0); VENT MODE, BG SIMV PS 10 (ROOM AIR)
--- NOTE | 2024-05-06 16:56 | PN ---
[facility] PROGRESS NOTE Date Patient Seen: May 06, 2024 Time of Visit: 16:54 Supervising Physician: Dr. Navarrete Primary Care Physician: Non established- lives in [place]- self pay Outpatient Specialists: NA Inpatient Consults: Dr. Fabricio Greene, Dr. Augusto Zaragoza, Dr. Garcia PROBLEM LIST: Lateral wall ST elevation HI Status post left heart cardiac catheterization on 05/03/[address] Marin in [facility] Multivessel coronary artery disease S/P CABG x3- CHATMAN to LAD, RSVG to distal LAD, RSVG to OM/ Ramus on 05/[address] Garcia Acute coronary syndrome Elevated troponin Chest pain related to ACS Acute kidney injury due to ATN from dehydration Hyperglycemia in the setting of T2DM H/O Coronary artery disease status post PCI stent remote, hypertension, hyperlipidemia, Diabetes mellitus type II INTERVAL HISTORY: 05/05/2024 Yesterday, Dr. Garcia met with the patient to discuss the potential benefits and risks of CABG surgery. Risks explained included los of limb, loss of life, bleeding, infection, stroke, and other complications. the patient demonstrated understanding of the risks and benefits but requested additional time to consider the surgery due to his advanced age. Dr Garcia believes that the patient would likely benefit from the surgery, given his physical strength de spite his age, but expressed willingness to honor the patient's decision. Today, the patient is alert and oriented. He reported that he discussed the situation with his family and has decided to proceed with the surgery. Laboratory results, WBC 5.2, Hemoglobin 15.0, Hematocrit 45.1, Platelets 132, Sodium 134, Potassium 3.6, BUN 27, Creatinine 1.3, GFR 54, Glucose 112, Troponin 6883. He has been weaned off of nitroglycerin drip. Continue heparin drip. Asa, statin, Echo with LVEF 40-45%. 05/06 patient underwent coronary artery bypass graft surgery x3 , chatman to LAD, RSVG to distal LAD, RSVG to OM/ ramus by Dr. Garcia. He remains intubated on SIMV 12/550/5/60%. His ABG is reviewed. He is going to be kept intubated overnight. Otherwise his cardiac index is 2.8 and cardiac output is 5.0. He remains on vasopressor with epinephrine drip and Levophed drip. He is on nitroglycerin drip as well. He is with mechanical circulatory support with intra-aortic balloon pump 1:1. Continue follow patient closely with hemodynamic post CABG care. Lab in the morning. Chest x-ray in the morning. REVIEW OF SYSTEMS: Constitutional: No appetite loss, No fevers, chills , No night sweats, No weakness, fatigue Eye: No vision change, No redness, pain or discharge ENT: No hearing loss, ear pain or discharge, No nose bleeds, No sore throat, Neck: No swelling. pain or stiffness Respiratory: No cough, shortness of breath, wheezing Cardiovascular: Reports mild chest pain, decreased in intensity. No pal pitations or syncope. Gastrointestinal: No abdominal pain, No nausea, vomiting, No diarrhea, constipation Genitourinary: No painful urination, No blood in urine, No urinary incontinence, No frequency or urgency Musculoskeletal: No joint pain, muscle pain, swelling or stiffness Neurological: No numbness, tingling, No weakness, tremors or seizures Psychiatric: : No depression, No anxiety, No sleep disturbance, No Memory changes Lymphatic: No easy bruising, No bleeding tendencies , No swollen lymph nodes A 13-point Review of Systems was assessed, all of which are negative except for HPI or as indicated above. PHYSICAL EXAM: GENERAL: Intubated and sedated HEENT: EOMI, Sclera non icteric, moist mucosa NECK: Supple, no JVD, trachea midline LUNGS: Clear breath sounds bilaterally. No wheezes HEART: Regular rate and rhythm. Normal S1 and S2, without murmurs ABD: Abdomen soft, nontender. Bowel sounds present EXT: No clubbing cyanosis or edema NEURO: Sedated, unable to assess Vital Signs (last 8hr) Date Time Temp Pulse Resp B/P (MAP) Pulse Ox O2 Delivery O2 Flow Rate FiO2 05/06/24 16:00 110 13 190/61 (104) 97 148/105 (119) 05/06/24 15:45 110 12 200/68 (112) 97 158/112 (127) 05/06/24 15:30 97.0 108 12 198/65 (109) 97 60 153/103 (120) 05/06/24 15:26 107 60 05/06/24 11:10 96.8 68 16 138/70 97 Room Air LABS: Hematology Labs: Test 05/06/24 15:30 10/30/24 03:41 Range/Units White Blood Count 17.9 #H 4.8-10.8 K/uL Red Blood Count 3.87 #L 4.50-6.20 MIL/uL Hemoglobin 12.1 #L 14.0-18.0 g/dL Hematocrit 35.5 #L 42-54 % Mean Corpuscular Volume 91.7 79-99 fL Mean Corpuscular Hemoglobin 31.3 27.0-33.0 pg Mean Corpuscular Hemoglobin Concent 34.1 32.0-36.0 g/dL Red Cell Distribution Width 12.5 11.0-15.5 % Platelet Count 117 L 130-400 K/uL Mean Platelet Volume 10.6 H 7.5-10.5 fL Nucleated Red Blood Cells 0.0 0.0-0.19 % Immature Granulocyte % (Auto) 0.4 0-1 % Neutrophils (%) (Auto) 60.7 40.0-77.0 % Lymphocytes (%) (Auto) 24.9 21.0-51.0 % Monocytes (%) (Auto) 12.0 3.0-13.0 % Eosinophils (%) (Auto) 1.4 0.0-8.0 % Basophils (%) (Auto) 0.6 0.0-5.0 % Neutrophils # (Auto) 3.1 1.8-7.7 K/uL Lymphocytes # (Auto) 1.3 1.0-4.8 K/uL Monocytes # (Auto) 0.6 0.1-1.0 K/uL Eosinophils # (Auto) 0.07 0.00-0.70 K/uL Basophils # (Auto) 0.03 0.00-0.20 K/uL Absolute Immature Granulocyte (auto 0.02 0-1 K/uL Chemistry Labs: Test 05/06/24 15:30 05/06/24 11:08 05/06/24 03:32 05/04/24 22:24 Range/Units Sodium Level 145 136-145 mmol/L Potassium Level 4.7 3.5-5.1 mmol/L Chloride Level 107 101-111 mmol/L Carbon Dioxide Level 25 21-32 mmol/L Blood Urea Nitrogen 20 H 7-18 mg/dL Creatinine 1.0 0.5-1.3 mg/dL Glomerular Filtration Rate Calc 74 >90 mL/min Random Glucose 139 H 70-105 mg/dL Total Calcium 9.5 8.5-10.1 mg/dL Phosphorus Level 4.2 2.5-4.9 mg/dL Magnesium Level 1.40 L 1.80-2.40 mg/dL Whole Blood Glucose 94 70-110 MG/DL Total Bilirubin 0.5 0.2-1.0 mg/dL Aspartate Amino Transf (AST/SGOT) 27 10-37 U/L Alanine Aminotransferase (ALT/SGPT) 20 12-78 U/L Alkaline Phosphatase 86 50-136 U/L B-Type Natriuretic Peptide 438 H 0-100 pg/mL Total Protein 6.9 6.0-8.3 g/dL Albumin 3.3 L 3.5-5.0 g/dL Troponin I High Sensitivity 6883 *H 4-75 ng/L Coagulation Labs: Test 05/06/24 15:30 Range/Units Prothrombin Time 12.4 H 9.6-11.6 SEC Prothromb Time International Ratio 1.16 H 0.85-1.15 Activated Partial Thromboplast Time 25.4 #L 26.3-35.5 SEC DIAGNOSTICS / RADIOLOGY RESULTS: [ ] PLAN NEURO: Minimize central acting medications as possible Maintain fall precautions Adecuate light during the day and minimize interruptions trhough the night to prevent acute delirrium PULMONARY: Supplemental 02 as needed Titrate Fio2 to keep Spo2 > or = 90% DuoNebs and CPT as needed IS hourly while awake for pulmonary hygiene Out of bed to chair as tolerated CARDIOVASCULAR: pending CABG Follow hemodynamics. Titrate vasopressor to keep MAP >65 or systolic blood pressure >95mmHg Consult to CV surgery Consult to cardiology DRIPS: Heparin Nitroglycerin LINES: PIV GI & NUTRITION: Continue nutritional support Aspirations precautions Prokinetic agents and laxatives as needed KIDNEYS & ELECTROLYTES: Strict monitoring of intake and output Daily weights Avoid nephrotoxic agents Monitor electrolytes and replace as needed Goal urine output of 30mL/hr or 0.5mL/kg/hr ENDOCRINE: Maintain blood glucose between 100-180 at all times. Insulin sliding scale for blood glucose management Check HgbA1C Long acting insulin with Lantus INFECTIOUS DISEASE: Trend temperature. Sim-culture if febrile. HEMATOLOGY & COAGULATION: Monitor H&H. Keep Hgb > 7 Transfuse 1 unit of PRBC for Hgb < 7 Transfuse 1 pack of platelets of platelets < 20, 000 Watch for any signs and symptoms of bleeding SKIN: Pressure ulcer prevention per facility protocol Rehab: PT/OT Prophylaxis: GI: famotidine DVT: heparin drip Code Status: Full Resuscitation Disposition: Other: Total patient care time exceeds 35 minutes excluding all procedures. Case was discussed and seen with my supervising physician. The above plan was formulated and agreed upon. [facility] May 06, 2024 16:56
[2024-05-06 17:32] LABS: ABG BASE EXCESS -0.4 mmol/L (-2.0-3.0); ABG HCO3 24.5 mmol/L (21.0-28.0); ABG OXYGEN SATURATION 95.4 % (94.0-98.0); ABG PCO2 41 mmHg (35-48); ABG PH 7.392 (7.350-7.450); CARBON MONOXIDE 0.6 % (0.5-1.5); HHb 4.6; PO2, ARTERIAL BG 84.9 mmHg (83.0-108.0); VENT MODE, BG SIMV PS 10 (ROOM AIR)
[2024-05-06] MEDS: ceFAZolin SODIUM 2 GM VIAL IVPB SCH (17:38)
[2024-05-06] MEDS: acetaMINOPHEN 1,000 MG/100 ML VIAL IV SCH (17:38)
[2024-05-06] MEDS: ALBUMIN (HUMAN) 5% 250 ML IV PRN (17:38)
[2024-05-06 18:27] LABS: ABG BASE EXCESS 1.9 mmol/L (-2.0-3.0); ABG HCO3 24.9 mmol/L (21.0-28.0); ABG OXYGEN SATURATION 97.3 % (94.0-98.0); ABG PCO2 34 mmHg (35-48); ABG PH 7.487 (7.350-7.450); CARBON MONOXIDE 0.4 % (0.5-1.5); DEVICE COMMENT LINE RN KARLA; HHb 2.7; VENT MODE, BG SIMV PS10 (ROOM AIR)
--- NOTE | 2024-05-06 19:47 | EKG ---
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
[2024-05-06 19:48] LABS: ABG BASE EXCESS 1.8 mmol/L (-2.0-3.0); ABG HCO3 24.8 mmol/L (21.0-28.0); ABG OXYGEN SATURATION 97.4 % (94.0-98.0); ABG PCO2 34 mmHg (35-48); ABG PH 7.485 (7.350-7.450); CARBON MONOXIDE 0.6 % (0.5-1.5); DEVICE COMMENT LINE RN TED; HHb 2.6; PO2, ARTERIAL BG 111.8 mmHg (83.0-108.0); VENT MODE, BG SIMV PS10 LINE (ROOM AIR)
[2024-05-06] MEDS: FAMOTIDINE 20MG VIAL IV SCH (19:58)
[2024-05-06] MEDS: PoTASSium chloRIDE 20MEQ/100ML 100 ML IV PRN (19:58)
[2024-05-06] MEDS: doCUSate SODIUM 100 MG CAP PO SCH (19:58)
[2024-05-06 20:52] LABS: ABG BASE EXCESS 3.3 mmol/L (-2.0-3.0); ABG HCO3 26.4 mmol/L (21.0-28.0); ABG PCO2 35 mmHg (35-48); ABG PH 7.496 (7.350-7.450); CARBON MONOXIDE 0.9 % (0.5-1.5); DEVICE COMMENT LINE RN TED; VENT MODE, BG LINE SIMV PS10 (ROOM AIR)
[2024-05-06 23:23] LABS: ABG BASE EXCESS 2.9 mmol/L (-2.0-3.0); ABG HCO3 26.5 mmol/L (21.0-28.0); ABG PCO2 38 mmHg (35-48); ABG PH 7.467 (7.350-7.450); DEVICE COMMENT LINE RN TED; PO2, ARTERIAL BG 131.6 mmHg (83.0-108.0); VENT MODE, BG SIMV PS10 (ROOM AIR)
[2024-05-07] VITALS (104 sets, daily range): BP systolic 97–195; BP diastolic 40–98; PULSE 63–114; RESP 6–20; TEMP 98.6–100.6; O2SAT 97–100
[2024-05-07 02:04] LABS: ABG BASE EXCESS 3.3 mmol/L (-2.0-3.0); ABG HCO3 26.7 mmol/L (21.0-28.0); ABG PCO2 37 mmHg (35-48); ABG PH 7.481 (7.350-7.450); CARBON MONOXIDE 0.5 % (0.5-1.5); DEVICE COMMENT LINE RN TED; PO2, ARTERIAL BG 131.7 mmHg (83.0-108.0); VENT MODE, BG SIMV PS10 (ROOM AIR)
[2024-05-07 04:03] LABS: ABG BASE EXCESS 2.9 mmol/L (-2.0-3.0); ABG HCO3 28.2 mmol/L (21.0-28.0); ABG OXYGEN SATURATION 97.5 % (94.0-98.0); ABG PCO2 47 mmHg (35-48); ABG PH 7.401 (7.350-7.450); CARBON MONOXIDE 0.6 % (0.5-1.5); DEVICE COMMENT LINE RN TED; HHb 2.5; PO2, ARTERIAL BG 111.4 mmHg (83.0-108.0)
[2024-05-07 04:34] LABS: HEMATOCRIT 33.1 % (42-54); MEAN CORPUSCULAR HEMOGLOBIN 30.9 pg (27.0-33.0); MEAN CORPUSCULAR HGB CONC 33.5 g/dL (32.0-36.0); MEAN CORPUSCULAR VOLUME 92.2 fL (79-99); RED BLOOD CELL COUNT(AUTO) 3.59 MIL/uL (4.50-6.20); RED CELL DISTRIBUTION WIDTH 12.7 % (11.0-15.5); WHITE BLOOD COUNT (AUTO) 10.4 K/uL (4.8-10.8)
[2024-05-07 04:43] LABS: INR 1.13 (0.85-1.15); PROTHROMBIN TIME 12.1 SEC (9.6-11.6)
[2024-05-07 04:45] LABS: PARTIAL THROMBOPLASTIN TIME 28.8 SEC (26.3-35.5)
[2024-05-07 05:00] LABS: CREATININE 1.3 mg/dL (0.5-1.3); MAGNESIUM 1.8 mg/dL (1.80-2.40); PHOSPHORUS 2.6 mg/dL (2.5-4.9); POTASSIUM 4.4 mmol/L (3.5-5.1)
[2024-05-07 05:28] LABS: ABG BASE EXCESS 2.1 mmol/L (-2.0-3.0); ABG OXYGEN SATURATION 97.4 % (94.0-98.0); ABG PCO2 43 mmHg (35-48); ABG PH 7.417 (7.350-7.450); CARBON MONOXIDE 0.2 % (0.5-1.5); DEVICE COMMENT LINE RN TED; HHb 2.6; PO2, ARTERIAL BG 114.8 mmHg (83.0-108.0); VENT MODE, BG SIMV PS10 (ROOM AIR)
--- NOTE | 2024-05-07 06:12 | PN ---
[facility] CARDIOLOGY PROGRESS NOTE Date Patient Seen: May 07, 2024 Time of Visit: 06:09 Interval History: [s/p Coronary artery bypass grafting x3 with left internal mammary artery to left anterior descending coronary artery, vein graft bypass to distal left anterior descending coronary artery and vein graft bypass to obtuse marginal/ramus, Insertion of intraaortic balloon pump via the right common femoral artery. ] Physical Examination: GENERAL: [intubated.] HEAD: [Normal with no signs of head trauma.] EYES: [PERRLA, EOMI, conjunctiva and sclera normal.] ENT: [Hearing grossly intact, normal oropharynx.] NECK: [Supple without JVD. There is no tenderness, lymphadenopathy, or masses. No thyromegaly. Normal carotid upstrokes without bruits.] LUNGS: [Intubated.] HEART: [Normal rate and rhythm. Normal S1 and S2 without mumurs, gallop or rub.] VASC: [Peripheral pulses +2 bilaterally.] ABD: [Bowel sounds normal, soft, nontender, no masses, no organomegaly. No audible bruits.] : [Not examined] LYMPH: [No lymphadenopathy noted.] EXT: [No clubbing, cyanosis or edema.] SKIN: [No rashes or lesions noted.] NEURO: [intubated.] Laboratory: [ ] Hematology Labs: Test 05/07/24 03:54 Range/Units White Blood Count 10.4 # 4.8-10.8 K/uL Red Blood Count 3.59 L 4.50-6.20 MIL/uL Hemoglobin 11.1 L 14.0-18.0 g/dL Hematocrit 33.1 L 42-54 % Mean Corpuscular Volume 92.2 79-99 fL Mean Corpuscular Hemoglobin 30.9 27.0-33.0 pg Mean Corpuscular Hemoglobin Concent 33.5 32.0-36.0 g/dL Red Cell Distribution Width 12.7 11.0-15.5 % Platelet Count 103 L 130-400 K/uL Mean Platelet Volume 10.3 7.5-10.5 fL Nucleated Red Blood Cells 0.0 0.0-0.19 % Chemistry Labs: Test 05/07/24 03:54 05/07/24 00:10 05/06/24 03:32 Range/Units Sodium Level 144 136-145 mmol/L Potassium Level 4.4 3.5-5.1 mmol/L Chloride Level 109 101-111 mmol/L Carbon Dioxide Level 31 21-32 mmol/L Blood Urea Nitrogen 20 H 7-18 mg/dL Creatinine 1.3 0.5-1.3 mg/dL Glomerular Filtration Rate Calc 54 >90 mL/min Random Glucose 119 H 70-105 mg/dL Total Calcium 8.9 8.5-10.1 mg/dL Ionized Calcium 1.19 1.16-1.32 MMOL/L Phosphorus Level 2.6 2.5-4.9 mg/dL Magnesium Level 1.80 1.80-2.40 mg/dL Whole Blood Glucose 122 H 70-110 MG/DL Total Bilirubin 0.5 0.2-1.0 mg/dL Aspartate Amino Transf (AST/SGOT) 27 10-37 U/L Alanine Aminotransferase (ALT/SGPT) 20 12-78 U/L Alkaline Phosphatase 86 50-136 U/L B-Type Natriuretic Peptide 438 H 0-100 pg/mL Total Protein 6.9 6.0-8.3 g/dL Albumin 3.3 L 3.5-5.0 g/dL Coagulation Labs: Test 05/07/24 03:54 Range/Units Prothrombin Time 12.1 H 9.6-11.6 SEC Prothromb Time International Ratio 1.13 0.85-1.15 Activated Partial Thromboplast Time 28.8 26.3-35.5 SEC Fibrinogen 420 H 180-350 mg/dL Diagnostics / Radiology: [Copy/Paste Echos/Imaging Report here] Impression and Plan: [#CAD s/p Coronary artery bypass grafting x3 with left internal mammary artery to left anterior descending coronary artery, vein graft bypass to distal left anterior descending coronary artery and vein graft bypass to obtuse marginal/ramus - Insertion of intraaortic balloon pump via the right common femoral artery, good pulses -h/o GISSELLE in 2016 -c/w lasix 20 mg IV q12h -start metoprolol tartrate 12.5 mg bid when off pressors -c/w asa 81 mg qd, atorvastatin 40 mg qhs -2D echo showed mid range LVEF 40-45% Aneta Zaragoza MD ] ANETA ZARAGOZA MD May 07, 2024 06:12
[2024-05-07 06:47] LABS: ABG BASE EXCESS 3.5 mmol/L (-2.0-3.0); ABG HCO3 27.5 mmol/L (21.0-28.0); ABG OXYGEN SATURATION 97.8 % (94.0-98.0); ABG PCO2 39 mmHg (35-48); ABG PH 7.462 (7.350-7.450); CARBON MONOXIDE 0.4 % (0.5-1.5); DEVICE COMMENT RN TED; HHb 2.2; PO2, ARTERIAL BG 116.6 mmHg (83.0-108.0); VENT MODE, BG SIMV (ROOM AIR)
[2024-05-07] MEDS: LIDOCAINE 2G/250ML 250 ML IV ONE (08:06)
[2024-05-07] MEDS: furoSEMIDE 20MG VIAL IV SCH (08:06)
[2024-05-07] MEDS: MAGNESIUM 2GM PREMIX 50ML 50 ML IV PRN (08:29)
--- NOTE | 2024-05-07 10:13 | HMCIMG ---
CHEST 1VW HISTORY: Post CABG COMPARISON: 05/06/2024 FINDINGS: A frontal projection of the chest was obtained. Mild bilateral pulmonary infiltrates are seen may be related to mild pulmonary vascular congestion with possible superimposed pneumonitis. Poststernotomy changes are seen. The heart is enlarged. Degenerative changes of the thoracolumbar spine are present. All the lines and tubes are again seen in place. No evidence of aortic calcification is seen. IMPRESSION: 1. Mild bilateral pulmonary infiltrates are seen may be related to mild pulmonary vascular congestion with possible superimposed pneumonitis.
[2024-05-07 10:29] LABS: ABG BASE EXCESS 4.4 mmol/L (-2.0-3.0); ABG HCO3 27.7 mmol/L (21.0-28.0); ABG OXYGEN SATURATION 97.7 % (94.0-98.0); ABG PCO2 37 mmHg (35-48); ABG PH 7.495 (7.350-7.450); CARBON MONOXIDE 0.2 % (0.5-1.5); DEVICE COMMENT RN EDDIE; HHb 2.3; PO2, ARTERIAL BG 109.5 mmHg (83.0-108.0); VENT MODE, BG SIMV (ROOM AIR)
--- NOTE | 2024-05-07 10:48 | PN ---
[facility] PROGRESS NOTE Date Patient Seen: May 07, 2024 Time of Visit: 10:46 Supervising Physician: Dr. Snyder Primary Care Physician: Non established- lives in [place]- self pay Outpatient Specialists: NA Inpatient Consults: Dr. Fabricio Greene, Dr. Augusto Zaragoza, Dr. Garcia PROBLEM LIST: Lateral wall ST elevation MD Status post left heart cardiac catheterization on 05/03/[address] Marin in [facility] Multivessel coronary artery disease S/P CABG x3- CHATMAN to LAD, RSVG to distal LAD, RSVG to OM/ Ramus on 05/[address] Garcia Metabolic alkalosis Acute coronary syndrome Elevated troponin Chest pain related to ACS Acute kidney injury due to ATN from dehydration Hyperglycemia in the setting of T2DM H/O Coronary artery disease status post PCI stent remote, hypertension, hyperlipidemia, Diabetes mellitus type II INTERVAL HISTORY: 05/05/2024 Yesterday, Dr. Garcia met with the patient to discuss the potential benefits and risks of CABG surgery. Risks explained included los of limb, loss of life, bleeding, infection, stroke, and other complications. the patient demonstrated understanding of the risks and benefits but requested additional time to consider the surgery due to his advanced age. Dr Garcia believes that the patient would likely benefit from the surgery, given his physical strength despite his age, but expressed willingness to honor the patient's decision. Today, the patient is alert and oriented. He reported that he discussed the situation with his family and has decided to proceed with the surgery. Laboratory results, WBC 5.2, Hemoglobin 15.0, Hematocrit 45.1, Platelets 132, Sodium 134, Potassium 3.6, BUN 27, Creatinine 1.3, GFR 54, Glucose 112, Troponin 6883. He has been weaned off of nitroglycerin drip. Continue heparin drip. Asa, statin, Echo with LVEF 40-45%. 05/06 patient underwent coronary artery bypass graft surgery x3 , chatman to LAD, RSVG to distal LAD, RSVG to OM/ ramus by Dr. Garcia. He remains intubated on SIMV 12/550/5/60%. His ABG is reviewed. He is going to be kept intubated overnight. Otherwise his cardiac index is 2.8 and cardiac output is 5.0. He remains on vasopressor with epinephrine drip and Levophed drip. He is on nitroglycerin drip as well. He is with mechanical circulatory support with intra-aortic balloon pump 1:1. Continue follow patient closely with hemodynamic post CABG care. Lab in the morning. Chest x-ray in the morning. 05/07 patient is very lethargic remains intubated on SIMV 4/550/5/40%. He has been weaned off the anxiolytic with the Precedex drip this morning. Continue to keep it off for now. Extubation has been requested per CV. Can do mechanics before extubation. Otherwise he remains with mechanical circulatory support 1:1 and on vasopressors with epinephrine drip at 0.04 mcg. Continue to wean down as tolerated. Cardiac output and cardiac index are unremarkable continue with the hemodynamic monitoring. Chest x-ray this morning with tip of balloon pump in the ICS six, recommend to advance it. Otherwise no pneumothorax. Chest tube are in place x2, output has been 400 cc. Urine output is 1.8 L. Balance is positive 1 L. Continue with current diuretic with Lasix. ABG this morning with pH 7.49 pCO2 is 37 PO2 is 109 this is metabolic alkalosis , recommend to start bicarb diuretic with Diamox if okay with surgery. Otherwise, continue to monitor closely. REVIEW OF SYSTEMS: Constitutional: No appetite loss, No fevers, chills , No night sweats, No weakness, fatigue Eye: No vision change, No redness, pain or discharge ENT: No hearing loss, ear pain or discharge, No nose bleeds, No sore throat, Neck: No swelling. pain or stiffness Respiratory: No cough, shortness of breath, wheezing Cardiovascular: Reports mild chest pain, decreased in intensity. No palpitations or syncope. Gastrointestinal: No abdominal pain, No nausea, vomiting, No diarrhea, constipation Genitourinary: No painful urination, No blood in urine, No urinary incontinence, No frequency or urgency Musculoskeletal: No joint pain, muscle pain, swelling or stiffness Neurological: No numbness, tingling, No weakness, tremors or seizures Psychiatric: : No depression, No anxiety, No sleep disturbance, No Memory changes Lymphatic: No easy bruising, No bleeding tendencies , No swollen lymph nodes A 13-point Review of Systems was assessed, all of which are negative except for HPI or as indicated above. PHYSICAL EXAM: GENERAL: Intubated and sedated HEENT: EOMI, Sclera non icteric, moist mucosa NECK: Supple, no JVD, trachea midline LUNGS: Clear breath sounds bilaterally. No wheezes HEART: Regular rate and rhythm. Normal S1 and S2, without murmurs ABD: Abdomen soft, nontender. Bowel sounds present EXT: No clubbing cyanosis or edema NEURO: Sedated, unable to assess Vital Signs (last 8hr) Date Time Temp Pulse Resp B/P (MAP) Pulse Ox O2 Delivery O2 Flow Rate FiO2 05/07/24 09:20 79 40 05/07/24 09:00 69 11 132/58 (82) 99 123/66 (85) 05/07/24 08:45 68 9 128/48 (74) 99 120/64 (82) 05/07/24 08:38 40 05/07/24 08:30 71 7 136/57 (83) 100 125/75 (92) 05/07/24 08:15 72 12 138/59 (85) 98 121/76 (91) 05/07/24 08:00 99 Ventilator+ 40 05/07/24 08:00 99.1 74 12 110/40 (63) 99 124/60 (81) 05/07/24 07:45 71 9 137/53 (81) 97 121/74 (90) 05/07/24 07:30 69 16 132/53 (79) 100 116/74 (88) 05/07/24 07:15 83 10 114/41 (65) 97 97/69 (78) 05/07/24 07:00 78 20 124/48 (73) 100 05/07/24 06:33 66 10 158/66 (96) 100 144/86 (105) 05/07/24 06:20 69 40 05/07/24 06:18 68 7 116/48 (70) 100 120/72 (88) 05/07/24 06:03 63 10 149/75 (99) 100 40 143/94 (110) 05/07/24 05:48 66 10 129/59 (82) 99 120/63 (82) 05/07/24 05:33 71 11 144/64 (90) 100 133/97 (109) 05/07/24 05:18 72 10 147/66 (93) 100 139/98 (112) 05/07/24 05:03 73 10 144/67 (92) 98 40 136/73 (94) 05/07/24 04:48 72 10 143/64 (90) 100 129/88 (102) 05/07/24 04:33 73 9 146/65 (92) 99 134/80 (98) 05/07/24 04:23 40 05/07/24 04:18 99 Ventilator+ 40 05/07/24 04:18 74 14 133/61 (85) 99 130/78 (95) 05/07/24 04:03 98.8 76 8 137/67 (90) 99 40 100/65 (77) 05/07/24 03:48 73 8 131/88 (102) 99 130/69 (89) 05/07/24 03:33 74 12 138/65 (89) 100 132/71 (91) 05/07/24 03:18 74 8 141/65 (90) 100 136/77 (96) 05/07/24 03:03 75 9 140/61 (87) 99 122/75 (91) 05/07/24 02:48 69 10 131/55 (80) 99 121/69 (86) LABS: Hematology Labs: Test 05/07/24 03:54 Range/Units White Blood Count 10.4 # 4.8-10.8 K/uL Red Blood Count 3.59 L 4.50-6.20 MIL/uL Hemoglobin 11.1 L 14.0-18.0 g/dL Hematocrit 33.1 L 42-54 % Mean Corpuscular Volume 92.2 79-99 fL Mean Corpuscular Hemoglobin 30.9 27.0-33.0 pg Mean Corpuscular Hemoglobin Concent 33.5 32.0-36.0 g/dL Red Cell Distribution Width 12.7 11.0-15.5 % Platelet Count 103 L 130-400 K/uL Mean Platelet Volume 10.3 7.5-10.5 fL Nucleated Red Blood Cells 0.0 0.0-0.19 % Chemistry Labs: Test 05/07/24 10:19 05/07/24 03:54 05/06/24 03:32 Range/Units Whole Blood Glucose 87 70-110 MG/DL Sodium Level 144 136-145 mmol/L Potassium Level 4.4 3.5-5.1 mmol/L Chloride Level 109 101-111 mmol/L Carbon Dioxide Level 31 21-32 mmol/L Blood Urea Nitrogen 20 H 7-18 mg/dL Creatinine 1.3 0.5-1.3 mg/dL Glomerular Filtration Rate Calc 54 >90 mL/min Random Glucose 119 H 70-105 mg/dL Total Calcium 8.9 8.5-10.1 mg/dL Ionized Calcium 1.19 1.16-1.32 MMOL/L Phosphorus Level 2.6 2.5-4.9 mg/dL Magnesium Level 1.80 1.80-2.40 mg/dL Total Bilirubin 0.5 0.2-1.0 mg/dL Aspartate Amino Transf (AST/SGOT) 27 10-37 U/L Alanine Aminotransferase (ALT/SGPT) 20 12-78 U/L Alkaline Phosphatase 86 50-136 U/L B-Type Natriuretic Peptide 438 H 0-100 pg/mL Total Protein 6.9 6.0-8.3 g/dL Albumin 3.3 L 3.5-5.0 g/dL Coagulation Labs: Test 05/07/24 03:54 Range/Units Prothrombin Time 12.1 H 9.6-11.6 SEC Prothromb Time International Ratio 1.13 0.85-1.15 Activated Partial Thromboplast Time 28.8 26.3-35.5 SEC Fibrinogen 420 H 180-350 mg/dL DIAGNOSTICS / RADIOLOGY RESULTS: [ ] PLAN NEURO: Minimize central acting medications as possible Maintain fall precautions Adecuate light during the day and minimize interruptions trhough the night to prevent acute delirrium PULMONARY: Supplemental 02 as needed Titrate Fio2 to keep Spo2 > or = 90% DuoNebs and CPT as needed IS hourly while awake for pulmonary hygiene Out of bed to chair as tolerated CARDIOVASCULAR: pending CABG Follow hemodynamics. Titrate vasopressor to keep MAP >65 or systolic blood pressure >95mmHg Consult to CV surgery Consult to cardiology DRIPS: Heparin Nitroglycerin LINES: PIV GI & NUTRITION: Continue nutritional support Aspirations precautions Prokinetic agents and laxatives as needed KIDNEYS & ELECTROLYTES: Strict monitoring of intake and output Daily weights Avoid nephrotoxic agents Monitor electrolytes and replace as needed Goal urine output of 30mL/hr or 0.5mL/kg/hr ENDOCRINE: Maintain blood glucose between 100-180 at all times. Insulin sliding scale for blood glucose management Check HgbA1C Long acting insulin with Lantus INFECTIOUS DISEASE: Trend temperature. Sim-culture if febrile. HEMATOLOGY & COAGULATION: Monitor H&H. Keep Hgb > 7 Transfuse 1 unit of PRBC for Hgb < 7 Transfuse 1 pack of platelets of platelets < 20, 000 Watch for any signs and symptoms of bleeding SKIN: Pressure ulcer prevention per facility protocol Rehab: PT/OT Prophylaxis: GI: famotidine DVT: heparin drip Code Status: Full Resuscitation Disposition: Other: Total patient care time exceeds 35 minutes excluding all procedures. Case was discussed and seen with my supervising physician. The above plan was formulated and agreed upon. [facility]IN [employer] May 07, 2024 10:48
[2024-05-07] MEDS: LIDOCAINE 2G/250ML 250 ML IV SCH (11:34)
--- NOTE | 2024-05-07 12:40 | HMCIMG ---
CHEST 1VW HISTORY: Intra-aortic balloon placement COMPARISON: Same day x-ray FINDINGS: A frontal projection of the chest was obtained. Mild bilateral pulmonary infiltrates are seen may be related to mild pulmonary vascular congestion with possible superimposed pneumonitis. Intra-aortic balloon placement is noted with distal tip near the aortic arch. The heart is borderline enlarged. All the lines and tubes are again seen in place. No evidence of aortic calcification is seen. IMPRESSION: 1. Mild bilateral pulmonary infiltrates are seen may be related to mild pulmonary vascular congestion with possible superimposed pneumonitis.
--- NOTE | 2024-05-07 12:41 | PN ---
TIME: 11:00 a.m. SUBJECTIVE: The patient is an 83-year-old gentleman status post CABG, remained stable overnight. No major events. PHYSICAL EXAMINATION: NEUROLOGIC: Still sedated, but starting to follow some commands. No obvious deficits. CARDIAC: S1, S2, regular rate and rhythm. RESPIRATORY: Clear to auscultation bilaterally. CHEST: Incision is clean, dry and intact. Sternum is stable. ASSESSMENT AND PLAN: * Coronary artery disease, status post coronary artery bypass graft,. He remains on very low dose epinephrine. We will continue with epinephrine today. He still is in the intraaortic balloon pump, will go to 1-2 today. We will continue to wean the epinephrine and the balloon pump tomorrow. * Hypercholesterolemia, on high statin therapy. * Acute blood loss anemia. No evidence of active bleeding. We will follow and transfuse for hemoglobin less than 7. * Respiratory failure, status post surgery. The patient is still intubated. We will continue to wean the ventilator and extubate him later today. TID: [id number] RECEIPT: [id number]
[2024-05-07] MEDS: ondanSETRON 4MG INJ IV PRN (16:04)
[2024-05-07] MEDS: acetaMINOPHEN 325 MG TAB PO PRN (16:04)
[2024-05-07 16:57] LABS: ABG BASE EXCESS 0.4 mmol/L (-2.0-3.0); ABG HCO3 24.4 mmol/L (21.0-28.0); ABG OXYGEN SATURATION 97.6 % (94.0-98.0); ABG PCO2 37 mmHg (35-48); ABG PH 7.433 (7.350-7.450); CARBON MONOXIDE 0 % (0.5-1.5); DEVICE COMMENT RN EDDIE; HHb 2.4; VENT MODE, BG SIMV (ROOM AIR)
[2024-05-07 20:09] LABS: ABG BASE EXCESS 2.4 mmol/L (-2.0-3.0); ABG HCO3 25.8 mmol/L (21.0-28.0); ABG OXYGEN SATURATION 98.1 % (94.0-98.0); ABG PCO2 36 mmHg (35-48); ABG PH 7.474 (7.350-7.450); CARBON MONOXIDE 0.3 % (0.5-1.5); DEVICE COMMENT A LINE; HHb 1.9; PO2, ARTERIAL BG 127.7 mmHg (83.0-108.0); VENT MODE, BG SIMV (ROOM AIR)
[2024-05-07 23:52] LABS: ABG HCO3 25.4 mmol/L (21.0-28.0); ABG OXYGEN SATURATION 98.2 % (94.0-98.0); ABG PCO2 40 mmHg (35-48); ABG PH 7.426 (7.350-7.450); CARBON MONOXIDE 0.4 % (0.5-1.5); DEVICE COMMENT A LINE; HHb 1.8; PO2, ARTERIAL BG 130.3 mmHg (83.0-108.0); VENT MODE, BG SIMV PS 10 (ROOM AIR)
[2024-05-08] VITALS (101 sets, daily range): BP systolic 90–183; BP diastolic 35–107; PULSE 79–167; RESP 8–25; TEMP 98.1–100; O2SAT 93–100
[2024-05-08 04:07] LABS: ABG HCO3 24.8 mmol/L (21.0-28.0); ABG OXYGEN SATURATION 98.6 % (94.0-98.0); ABG PCO2 29 mmHg (35-48); ABG PH 7.551 (7.350-7.450); CARBON MONOXIDE 0.1 % (0.5-1.5); DEVICE COMMENT A LINE; HHb 1.4; PO2, ARTERIAL BG 151.5 mmHg (83.0-108.0); VENT MODE, BG SIMV (ROOM AIR)
[2024-05-08 04:49] LABS: CREATININE 1.4 mg/dL (0.5-1.3); MAGNESIUM 1.7 mg/dL (1.80-2.40); POTASSIUM 4.2 mmol/L (3.5-5.1)
[2024-05-08 04:53] LABS: HEMATOCRIT 31.5 % (42-54); MEAN CORPUSCULAR HEMOGLOBIN 30.6 pg (27.0-33.0); MEAN CORPUSCULAR VOLUME 92.6 fL (79-99); RED CELL DISTRIBUTION WIDTH 13.5 % (11.0-15.5); WHITE BLOOD COUNT (AUTO) 14.4 K/uL (4.8-10.8)
[2024-05-08 04:56] LABS: PLATELET COUNT (AUTO) 63 K/uL (130-400)
[2024-05-08] MEDS: furoSEMIDE 20 MG TABLET PO SCH ×2 (07:42→20:06)
[2024-05-08] MEDS: metoPROLOL tartRATE 25 MG TAB PO SCH (07:43)
--- NOTE | 2024-05-08 08:39 | HMCIMG ---
FRONTAL CHEST RADIOGRAPH INDICATION: s/p CABG COMPARISON: 05/07/2024 FINDINGS/IMPRESSION: practice coordinator leads overlie the field of view. Stable [place]-Lisa catheter, endotracheal tube, and nasogastric tube as well as pleural mediastinal drainage catheters. Normal heart size and lungs are clear, without pleural effusion or pneumothorax.
--- NOTE | 2024-05-08 09:00 | PN ---
[facility] CARDIOLOGY PROGRESS NOTE Date Patient Seen: May 08, 2024 Time of Visit: 08:58 Interval History: [CXR is clear ] Physical Examination: GENERAL: [A&Ox3.] HEAD: [Normal with no signs of head trauma.] EYES: [PERRLA, EOMI, conjunctiva and sclera normal.] ENT: [Hearing grossly intact, normal oropharynx.] NECK: [Supple without JVD. There is no tenderness, lymphadenopathy, or masses. No thyromegaly. Normal carotid upstrokes without bruits.] LUNGS: [CTA] HEART: [Normal rate and rhythm. Normal S1 and S2 without mumurs, gallop or rub.] VASC: [Peripheral pulses +2 bilaterally.] ABD: [Bowel sounds normal, soft, nontender, no masses, no organomegaly. No audible bruits.] : [Not examined] LYMPH: [No lymphadenopathy noted.] EXT: [Necrotic toes on RLE.] SKIN: [No rashes or lesions noted.] NEURO: [no deficits] Laboratory: [ ] Hematology Labs: Test 05/08/24 04:06 Range/Units White Blood Count 14.4 H 4.8-10.8 K/uL Red Blood Count 3.40 L 4.50-6.20 MIL/uL Hemoglobin 10.4 L 14.0-18.0 g/dL Hematocrit 31.5 L 42-54 % Mean Corpuscular Volume 92.6 79-99 fL Mean Corpuscular Hemoglobin 30.6 27.0-33.0 pg Mean Corpuscular Hemoglobin Concent 33.0 32.0-36.0 g/dL Red Cell Distribution Width 13.5 11.0-15.5 % Platelet Count 63 #L 130-400 K/uL Mean Platelet Volume 12.0 H 7.5-10.5 fL Nucleated Red Blood Cells 0.0 0.0-0.19 % Platelet Morphology Comment See comments Chemistry Labs: Test 05/08/24 07:50 05/08/24 04:06 05/07/24 03:54 Range/Units Whole Blood Glucose 131 H 70-110 MG/DL Sodium Level 140 136-145 mmol/L Potassium Level 4.2 3.5-5.1 mmol/L Chloride Level 103 101-111 mmol/L Carbon Dioxide Level 26 21-32 mmol/L Blood Urea Nitrogen 20 H 7-18 mg/dL Creatinine 1.4 H 0.5-1.3 mg/dL Glomerular Filtration Rate Calc 50 >90 mL/min Random Glucose 116 H 70-105 mg/dL Total Calcium 8.9 8.5-10.1 mg/dL Magnesium Level 1.70 L 1.80-2.40 mg/dL Ionized Calcium 1.19 1.16-1.32 MMOL/L Phosphorus Level 2.6 2.5-4.9 mg/dL Coagulation Labs: Test 05/07/24 03:54 Range/Units Prothrombin Time 12.1 H 9.6-11.6 SEC Prothromb Time International Ratio 1.13 0.85-1.15 Activated Partial Thromboplast Time 28.8 26.3-35.5 SEC Fibrinogen 420 H 180-350 mg/dL Diagnostics / Radiology: [Copy/Paste Echos/Imaging Report here] Impression and Plan: [#CAD s/p Coronary artery bypass grafting x3 with left internal mammary artery to left anterior descending coronary artery, vein graft bypass to distal left anterior descending coronary artery and vein graft bypass to obtuse marginal/ramus - Insertion of intraaortic balloon pump via the right common femoral artery, good pulses -h/o GISSELLE in 2017 -CXR clear, stopped lasix, Cr up to 1.4 - metoprolol tartrate 12.5 mg bid -c/w asa 81 mg qd, atorvastatin 40 mg qhs -2D echo showed mid range LVEF 40-45% Pending LTAC Aneta Zaragoza MD ] ANETA ZARAGOZA MD May 08, 2024 09:00
[2024-05-08] MEDS: LACTULOSE 20 GM/30 ML UDCUP PO PRN (09:04)
[2024-05-08 11:04] LABS: ABG BASE EXCESS 0.6 mmol/L (-2.0-3.0); ABG HCO3 23.5 mmol/L (21.0-28.0); ABG OXYGEN SATURATION 98.5 % (94.0-98.0); ABG PCO2 32 mmHg (35-48); ABG PH 7.485 (7.350-7.450); CARBON MONOXIDE 0.1 % (0.5-1.5); DEVICE COMMENT EDDIE RN ALINE; HHb 1.5; PO2, ARTERIAL BG 147.1 mmHg (83.0-108.0); VENT MODE, BG SIMV PS10 (ROOM AIR)
[2024-05-08] MEDS: INSULIN humuLIN R 100 UNIT/ML 3ML SQ SCH (11:12)
[2024-05-08] MEDS: traMADol HCL 50 MG TABLET PO PRN (12:01)
[2024-05-08 13:16] LABS: ABG BASE EXCESS 0.8 mmol/L (-2.0-3.0); ABG HCO3 24.4 mmol/L (21.0-28.0); ABG OXYGEN SATURATION 97.7 % (94.0-98.0); ABG PCO2 35 mmHg (35-48); ABG PH 7.456 (7.350-7.450); CARBON MONOXIDE 0 % (0.5-1.5); DEVICE COMMENT ALINE; HHb 2.3; PO2, ARTERIAL BG 111.6 mmHg (83.0-108.0); VENT MODE, BG CAFM (ROOM AIR)
--- NOTE | 2024-05-08 16:21 | PN ---
[facility] PROGRESS NOTE Date Patient Seen: May 08, 2024 Time of Visit: 16:19 Supervising Physician: Dr. Snyder Primary Care Physician: Non established- lives in [place]- self pay Outpatient Specialists: NA Inpatient Consults: Dr. Fabricio Greene, Dr. Augusto Zaragoza, Dr. Garcia PROBLEM LIST: Lateral wall ST elevation AR Status post left heart cardiac catheterization on 05/03/[address] Marin in [facility] Multivessel coronary artery disease S/P CABG x3- CHATMAN to LAD, RSVG to distal LAD, RSVG to OM/ Ramus on 05/[address] Garcia Metabolic alkalosis Acute coronary syndrome Elevated troponin Chest pain related to ACS Acute kidney injury due to ATN from dehydration Hyperglycemia in the setting of T2DM H/O Coronary artery disease status post PCI stent remote, hypertension, hyperlipidemia, Diabetes mellitus type II INTERVAL HISTORY: 05/05/2024 Yesterday, Dr. Garcia met with the patient to discuss the potential benefits and risks of CABG surgery. Risks explained included los of limb, loss of life, bleeding, infection, stroke, and other complications. the patient demonstrated understanding of the risks and benefits but requested additional time to consider the surgery due to his advanced age. Dr Garcia believes that the patient would likely benefit from the surgery, given his physical strength despite his age, but expressed willingness to honor the patient's decision. Today, the patient is alert and oriented. He reported that he discussed the situation with his family and has decided to proceed with the surgery. Laboratory results, WBC 5.2, Hemoglobin 15.0, Hematocrit 45.1, Platelets 132, Sodium 134, Potassium 3.6, BUN 27, Creatinine 1.3, GFR 54, Glucose 112, Troponin 6883. He has been weaned off of nitroglycerin drip. Continue heparin drip. Asa, statin, Echo with LVEF 40-45%. 05/06 patient underwent coronary artery bypass graft surgery x3 , chatman to LAD, RSVG to distal LAD, RSVG to OM/ ramus by Dr. Garcia. He remains intubated on SIMV 12/550/5/60%. His ABG is reviewed. He is going to be kept intubated overnight. Otherwise his cardiac index is 2.8 and cardiac output is 5.0. He remains on vasopressor with epinephrine drip and Levophed drip. He is on nitroglycerin drip as well. He is with mechanical circulatory support with intra-aortic balloon pump 1:1. Continue follow patient closely with hemodynamic post CABG care. Lab in the morning. Chest x-ray in the morning. 05/07 patient is very lethargic remains intubated on SIMV 4/550/5/40%. He has been weaned off the anxiolytic with the Precedex drip this morning. Continue to keep it off for now. Extubation has been requested per CV. Can do mechanics before extubation. Otherwise he remains with mechanical circulatory support 1:1 and on vasopressors with epinephrine drip at 0.04 mcg. Continue to wean down as tolerated. Cardiac output and cardiac index are unremarkable continue with the hemodynamic monitoring. Chest x-ray this morning with tip of balloon pump in the ICS six, recommend to advance it. Otherwise no pneumothorax. Chest tube are in place x2, output has been 400 cc. Urine output is 1.8 L. Balance is positive 1 L. Continue with current diuretic with Lasix. ABG this morning with pH 7.49 pCO2 is 37 PO2 is 109 this is metabolic alkalosis , recommend to start bicarb diuretic with Diamox if okay with surgery. Otherwise, continue to monitor closely. 05/08 patient is awake , mildly restless, still intubated and gesturing to want to be extubated. Otherwise his vital signs is with blood pressure 144/57 map 86 per invasive blood pressure monitoring, patient remains on mechanical circulatory support with intra-aortic balloon pump at 1:2. Chest x-ray this morning with tip of balloon pump at the ics 4, this is in good position. Lung is clear with scattered congestion. Output of the chest tube is 240 cc. Urine output is 3.5 L with balance-2.2 L. continue strict i/o. This morning with WBC 14 up from 10 hemoglobin is 10.4 down from 11.1. Platelet count is 63 this is down from 103. Consumption from MCS. Watch for bleeding. Chemistry creatinine is 1.4 this is up from 1.3. BUN is 20. Potassium is 4.2 bicarb is 26. ABG pH 7.45 pCO2 35 PO2 is 111. We did the mechanics and patient has good mechanics, is a good candidate for extubation if okay with the CV surgery. Patient has been weaned off of the epinephrine drip. Continue to monitor patient closely in ICU. REVIEW OF SYSTEMS: Constitutional: No appetite loss, No fevers, chills , No night sweats, No weakness, fatigue Eye: No vision change, No redness, pain or discharge ENT: No hearing loss, ear pain or discharge, No nose bleeds, No sore throat, Neck: No swelling. pain or stiffness Respiratory: No cough, shortness of breath, wheezing Cardiovascular: Reports mild chest pain, decreased in intensity. No palpitations or syncope. Gastrointestinal: No abdominal pain, No nausea, vomiting, No diarrhea, constipation Genitourinary: No painful urination, No blood in urine, No urinary incontinence, No frequency or urgency Musculoskeletal: No joint pain, muscle pain, swelling or stiffness Neurological: No numbness, tingling, No weakness, tremors or seizures Psychiatric: : No depression, No anxiety, No sleep disturbance, No Memory change s Lymphatic: No easy bruising, No bleeding tendencies , No swollen lymph nodes A 13-point Review of Systems was assessed, all of which are negative except for HPI or as indicated above. PHYSICAL EXAM: GENERAL: Intubated, follows command HEENT: EOMI, Sclera non icteric, moist mucosa NECK: Supple, no JVD, trachea midline LUNGS: Clear breath sounds bilaterally. No wheezes HEART: Regular rate and rhythm. Normal S1 and S2, without murmurs ABD: Abdomen soft, nontender. Bowel sounds present EXT: No clubbing cyanosis or edema NEURO: Moving all extremities equally. no unilateral weakness. Vital Signs (last 8hr) Date Time Temp Pulse Resp B/P (MAP) Pulse Ox O2 Delivery O2 Flow Rate FiO2 05/08/24 15:49 99.3 Nasal Cannula 2.0 05/08/24 15:00 87 12 144/57 (86) 99 120/52 (74) 05/08/24 14:45 87 20 141/55 (83) 99 05/08/24 14:30 93 20 162/54 (90) 97 127/75 (92) 05/08/24 14:15 94 25 164/53 (90) 97 05/08/24 14:00 93 16 149/59 (89) 98 133/70 (91) 05/08/24 13:45 93 21 158/55 (89) 98 05/08/24 13:30 91 12 147/59 (88) 99 127/63 (84) 05/08/24 13:15 90 9 141/56 (84) 99 40 05/08/24 13:00 94 12 148/62 (90) 99 133/67 (89) 05/08/24 12:45 95 14 148/62 (90) 98 05/08/24 12:30 98 17 148/54 (85) 99 132/58 (82) 05/08/24 12:16 100 19 Aerosol, Face Mask 10.0 40 05/08/24 12:15 99 14 160/52 (88) 100 05/08/24 12:08 100 18 10.0 40 05/08/24 12:00 99.0 05/08/24 12:00 99 16 167/58 (94) 99 132/61 (84) 05/08/24 12:00 99 Ventilator+ 40 05/08/24 11:45 94 14 148/62 (90) 100 05/08/24 11:30 93 25 147/61 (89) 100 05/08/24 11:19 96 12 163/62 (95) 100 148/107 (121) 05/08/24 11:15 90 11 143/58 (86) 100 05/08/24 11:00 93 11 152/58 (89) 99 122/92 (102) 05/08/24 10:53 40 05/08/24 10:45 97 14 165/57 (93) 100 05/08/24 10:30 89 12 153/67 (95) 100 156/107 (123) 05/08/24 10:15 90 10 142/59 (86) 100 05/08/24 10:00 94 13 150/63 (92) 99 127/50 (75) 05/08/24 09:45 93 12 159/64 (95) 100 05/08/24 09:30 92 15 159/64 (95) 100 132/105 (114) 05/08/24 09:15 97 14 163/82 (109) 100 05/08/24 09:10 90 40 05/08/24 09:00 98 9 142/60 (87) 98 133/55 (81) 05/08/24 08:45 95 16 155/66 (95) 100 05/08/24 08:30 93 12 153/56 (88) 99 129/70 (89) LABS: Hematology Labs: Test 05/08/24 04:06 Range/Units White Blood Count 14.4 H 4.8-10.8 K/uL Red Blood Count 3.40 L 4.50-6.20 MIL/uL Hemoglobin 10.4 L 14.0-18.0 g/dL Hematocrit 31.5 L 42-54 % Mean Corpuscular Volume 92.6 79-99 fL Mean Corpuscular Hemoglobin 30.6 27.0-33.0 pg Mean Corpuscular Hemoglobin Concent 33.0 32.0-36.0 g/dL Red Cell Distribution Width 13.5 11.0-15.5 % Platelet Count 63 #L 130-400 K/uL Mean Platelet Volume 12.0 H 7.5-10.5 fL Nucleated Red Blood Cells 0.0 0.0-0.19 % Platelet Morphology Comment See comments Chemistry Labs: Test 05/08/24 15:46 05/08/24 04:06 05/07/24 03:54 Range/Units Whole Blood Glucose 145 H 70-110 MG/DL Sodium Level 140 136-145 mmol/L Potassium Level 4.2 3.5-5.1 mmol/L Chloride Level 103 101-111 mmol/L Carbon Dioxide Level 26 21-32 mmol/L Blood Urea Nitrogen 20 H 7-18 mg/dL Creatinine 1.4 H 0.5-1.3 mg/dL Glomerular Filtration Rate Calc 50 >90 mL/min Random Glucose 116 H 70-105 mg/dL Total Calcium 8.9 8.5-10.1 mg/dL Magnesium Level 1.70 L 1.80-2.40 mg/dL Ionized Calcium 1.19 1.16-1.32 MMOL/L Phosphorus Level 2.6 2.5-4.9 mg/dL Coagulation Labs: Test 05/07/24 03:54 Range/Units Prothrombin Time 12.1 H 9.6-11.6 SEC Prothromb Time International Ratio 1.13 0.85-1.15 Activated Partial Thromboplast Time 28.8 26.3-35.5 SEC Fibrinogen 420 H 180-350 mg/dL DIAGNOSTICS / RADIOLOGY RESULTS: [ ] PLAN NEURO: Minimize central acting medications as possible Maintain fall precautions Adecuate light during the day and minimize interruptions trhough the night to prevent acute delirrium PULMONARY: Supplemental 02 as needed Titrate Fio2 to keep Spo2 > or = 90% DuoNebs and CPT as needed IS hourly while awake for pulmonary hygiene Out of bed to chair as tolerated CARDIOVASCULAR: pending CABG Follow hemodynamics. Titrate vasopressor to keep MAP >65 or systolic blood pressure >95mmHg Consult to CV surgery Consult to cardiology DRIPS: Heparin Nitroglycerin LINES: PIV GI & NUTRITION: Continue nutritional support Aspirations precautions Prokinetic agents and laxatives as needed KIDNEYS & ELECTROLYTES: Strict monitoring of intake and output Daily weights Avoid nephrotoxic agents Monitor electrolytes and replace as needed Goal urine output of 30mL/hr or 0.5mL/kg/hr ENDOCRINE: Maintain blood glucose between 100-180 at all times. Insulin sliding scale for blood glucose management Check HgbA1C Long acting insulin with Lantus INFECTIOUS DISEASE: Trend temperature. Sim-culture if febrile. HEMATOLOGY & COAGULATION: Monitor H&H. Keep Hgb > 7 Transfuse 1 unit of PRBC for Hgb < 7 Transfuse 1 pack of platelets of platelets < 20, 000 Watch for any signs and symptoms of bleeding SKIN: Pressure ulcer prevention per facility protocol Rehab: PT/OT Prophylaxis: GI: famotidine DVT: heparin drip Code Status: Full Resuscitation Disposition: Other: Total patient care time exceeds 35 minutes excluding all procedures. Case was discussed and seen with my supervising physician. The above plan was formulated and agreed upon. DENVER MARTIN AGRONOMY RESEARCH MANAGER May 08, 2024 16:20
--- NOTE | 2024-05-08 19:44 | EKG ---
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
[2024-05-09] VITALS (84 sets, daily range): BP systolic -2–166; BP diastolic -2–95; PULSE 69–152; RESP 10–36; TEMP 97.9–98.9; O2SAT 92–98
--- NOTE | 2024-05-09 00:47 | PN ---
TIME: 11:00 a.m. SUBJECTIVE: The patient is an 83-year-old gentleman status post coronary artery bypass grafting. No major events overnight. He remained stable at this time. PHYSICAL EXAMINATION: NEUROLOGIC: Alert and oriented, no deficits. CARDIAC: S1, S2, regular rate and rhythm. RESPIRATORY: Clear to auscultation bilaterally. Incision is clean, dry and intact. Sternum is stable. ASSESSMENT AND PLAN: * Coronary artery disease, status post coronary artery bypass graft,. He remains on aspirin and statin. We will start him on Plavix. He is off pressors. We will wean down the balloon to 1-2 today and 1-3 tomorrow. Hopefully, we can discontinue the balloon tomorrow. * Volume overload, on Lasix b.i.d. * Hypercholesterolemia, on high statin therapy. Overall, doing quite well. He is recovering well. We will wean off the balloon either tomorrow or Friday. TID: [id number] RECEIPT: [id number]
[2024-05-09 04:16] LABS: HEMATOCRIT 29.4 % (42-54); MEAN CORPUSCULAR HEMOGLOBIN 31.5 pg (27.0-33.0); MEAN CORPUSCULAR HGB CONC 33.7 g/dL (32.0-36.0); MEAN CORPUSCULAR VOLUME 93.6 fL (79-99); RED BLOOD CELL COUNT(AUTO) 3.14 MIL/uL (4.50-6.20); WHITE BLOOD COUNT (AUTO) 10.6 K/uL (4.8-10.8)
[2024-05-09 04:21] LABS: CREATININE 1.3 mg/dL (0.5-1.3); MAGNESIUM 1.7 mg/dL (1.80-2.40); POTASSIUM 3.7 mmol/L (3.5-5.1)
[2024-05-09 04:24] LABS: INR 1.1 (0.85-1.15); PROTHROMBIN TIME 11.8 SEC (9.6-11.6)
--- NOTE | 2024-05-09 08:08 | HMCIMG ---
FRONTAL CHEST RADIOGRAPH INDICATION: s/p CABG COMPARISON: 05/08/2024 FINDINGS/IMPRESSION: groundwater monitoring technician leads overlie the field of view. Removal of [place]-Lisa catheter and right IJ sheath remains, intra-aortic balloon pump is unchanged in position, stable pleural mediastinal drainage tubes, and removal of endotracheal and nasogastric tubes. Stable heart size without pulmonary vascular congestion, pleural effusion, or pneumothorax.
[2024-05-09] MEDS: cloPIDOgrel 75MG TAB PO SCH (08:44)
[2024-05-09] MEDS: ENOXAPARIN SODIUM 30 MG/0.3 ML SQ SCH (08:44)
--- NOTE | 2024-05-09 09:33 | PN ---
[facility] PROGRESS NOTE Date Patient Seen: May 09, 2024 Time of Visit: 09:30 Interval History: [CXR is clear. Off pressors. ] Physical Examination: GENERAL: [A&Ox3.] HEAD: [Normal with no signs of head trauma.] EYES: [PERRLA, EOMI, conjunctiva and sclera normal.] ENT: [Hearing grossly intact, normal oropharynx.] NECK: [Supple without JVD. There is no tenderness, lymphadenopathy, or masses. No thyromegaly. Normal carotid upstrokes without bruits.] LUNGS: [CTA] HEART: [Normal rate and rhythm. Normal S1 and S2 without mumurs, gallop or rub.] VASC: [Peripheral pulses +2 bilaterally.] ABD: [Bowel sounds normal, soft, nontender, no masses, no organomegaly. No audible bruits.] : [Not examined] LYMPH: [No lymphadenopathy noted.] EXT: [Necrotic toes on RLE.] SKIN: [No rashes or lesions noted.] NEURO: [no deficits] Laboratory: [ ] Hematology Labs: Test 05/09/24 04:05 05/08/24 04:06 Range/Units White Blood Count 10.6 # 4.8-10.8 K/uL Red Blood Count 3.14 L 4.50-6.20 MIL/uL Hemoglobin 9.9 L 14.0-18.0 g/dL Hematocrit 29.4 L 42-54 % Mean Corpuscular Volume 93.6 79-99 fL Mean Corpuscular Hemoglobin 31.5 27.0-33.0 pg Mean Corpuscular Hemoglobin Concent 33.7 32.0-36.0 g/dL Red Cell Distribution Width 13.0 11.0-15.5 % Platelet Count 51 L 130-400 K/uL Mean Platelet Volume 10.8 H 7.5-10.5 fL Nucleated Red Blood Cells 0.0 0.0-0.19 % Platelet Morphology Comment See comments Chemistry Labs: Test 05/09/24 07:39 05/09/24 04:05 Range/Units Whole Blood Glucose 139 H 70-110 MG/DL Sodium Level 137 136-145 mmol/L Potassium Level 3.7 3.5-5.1 mmol/L Chloride Level 99 L 101-111 mmol/L Carbon Dioxide Level 28 21-32 mmol/L Blood Urea Nitrogen 29 H 7-18 mg/dL Creatinine 1.3 0.5-1.3 mg/dL Glomerular Filtration Rate Calc 54 >90 mL/min Random Glucose 134 H 70-105 mg/dL Total Calcium 8.6 8.5-10.1 mg/dL Magnesium Level 1.70 L 1.80-2.40 mg/dL Coagulation Labs: Test 05/09/24 04:05 Range/Units Prothrombin Time 11.8 H 9.6-11.6 SEC Prothromb Time International Ratio 1.10 0.85-1.15 Diagnostics / Radiology: [Copy/Paste Echos/Imaging Report here] Impression and Plan: [#CAD s/p Coronary artery bypass grafting x3 with left internal mammary artery to left anterior descending coronary artery, vein graft bypass to distal left anterior descending coronary artery and vein graft bypass to obtuse marginal/ramus - Insertion of intraaortic balloon pump via the right common femoral artery, good pulses -h/o GISSELLE in 2016 -CXR clear, lasix 20 mg po bid - metoprolol tartrate 12.5 mg bid -c/w asa 81 mg qd, atorvastatin 40 mg qhs, plavix 75 mg qd -2D echo showed mid range LVEF 40-45% -weaning IABP per CV surgery Aneta Zaragoza MD ] ANETA ZARAGOZA MD May 09, 2024 09:33
[2024-05-09] MEDS: doCUSate SODIUM 100 MG CAP PO ONE (09:57)
--- NOTE | 2024-05-09 09:58 | PN ---
[facility] PROGRESS NOTE Date Patient Seen: May 09, 2024 Time of Visit: 09:54 Supervising Physician: Dr. Snyder Primary Care Physician: Non established- lives in [place]- self pay Outpatient Specialists: NA Inpatient Consults: Dr. Fabricio Greene, Dr. Augusto Zaragoza, Dr. Garcia PROBLEM LIST: Lateral wall ST elevation ME Status post left heart cardiac catheterization on 05/03/[address] Marin in [facility] Multivessel coronary artery disease S/P CABG x3- CHATMAN to LAD, RSVG to distal LAD, RSVG to OM/ Ramus on 05/[address] Garcia Acute on chronic reduced EF HF- LVEF 40%- POA Metabolic alkalosis- resolved Acute coronary syndrome Elevated troponin Chest pain related to ACS Acute kidney injury due to ATN from dehydration Hyperglycemia in the setting of T2DM H/O Coronary artery disease status post PCI stent remote, hypertension, hyperlipidemia, Diabetes mellitus type II INTERVAL HISTORY: 05/05/2024 Yesterday, Dr. Garcia met with the patient to discuss the potential benefits and risks of CABG surgery. Risks explained included los of limb, loss of life, bleeding, infection, stroke, and other complications. the patient demonstrated understanding of the risks and benefits but requested additional time to consider the surgery due to his advanced age. Dr Garcia believes that the patient would likely benefit from the surgery, given his physical strength despite his age, but expressed willingness to honor the patient's decision. Today, the patient is alert and oriented. He reported that he discussed the situation with his family and has decided to proceed with the surgery. Laboratory results, WBC 5.2, Hemoglobin 15.0, Hematocrit 45.1, Platelets 132, Sodium 134, Potassium 3.6, BUN 27, Creatinine 1.3, GFR 54, Glucose 112, Troponin 6883. He has been weaned off of nitroglycerin drip. Continue heparin drip. Asa, statin, Echo with LVEF 40-45%. 05/06 patient underwent coronary artery bypass graft surgery x3 , chatman to LAD, RSVG to distal LAD, RSVG to OM/ ramus by Dr. Garcia. He remains intubated on SIMV 12/550/5/60%. His ABG is reviewed. He is going to be kept intubated overnight. Otherwise his cardiac index is 2.8 and cardiac output is 5.0. He remains on vasopressor with epinephrine drip and Levophed drip. He is on nitroglycerin drip as well. He is with mechanical circulatory support with intra-aortic balloon pump 1:1. Continue follow patient closely with hemodynamic post CABG care. Lab in the morning. Chest x-ray in the morning. 05/07 patient is very lethargic remains intubated on SIMV 4/550/5/40%. He has been weaned off the anxiolytic with the Precedex drip this morning. Continue to keep it off for now. Extubation has been requested per CV. Can do mechanics before extubation. Otherwise he remains with mechanical circulatory support 1:1 and on vasopressors with epinephrine drip at 0.04 mcg. Continue to wean down as tolerated. Cardiac output and cardiac index are unremarkable continue with the hemodynamic monitoring. Chest x-ray this morning with tip of balloon pump in the ICS six, recommend to advance it. Otherwise no pneumothorax. Chest tube are in place x2, output has been 400 cc. Urine output is 1.8 L. Balance is positive 1 L. Continue with current diuretic with Lasix. ABG this morning with pH 7.49 pCO2 is 37 PO2 is 109 this is metabolic alkalosis , recommend to start b icarb diuretic with Diamox if okay with surgery. Otherwise, continue to monitor closely. 05/08 patient is awake , mildly restless, still intubated and gesturing to want to be extubated. Otherwise his vital signs is with blood pressure 144/57 map 86 per invasive blood pressure monitoring, patient remains on mechanical circulatory support with intra-aortic balloon pump at 1:2. Chest x-ray this morning with tip of balloon pump at the ics 4, this is in good position. Lung is clear with scattered congestion. Output of the chest tube is 240 cc. Urine output is 3.5 L with balance-2.2 L. continue strict i/o. This morning with WBC 14 up from 10 hemoglobin is 10.4 down from 11.1. Platelet count is 63 this is down from 103. Consumption from MCS. Watch for bleeding. Chemistry creatinine is 1.4 this is up from 1.3. BUN is 20. Potassium is 4.2 bicarb is 26. ABG pH 7.45 pCO2 35 PO2 is 111. We did the mechanics and patient has good mechanics, is a good candidate for extubation if okay with the CV surgery. Patient has been weaned off of the epinephrine drip. Continue to monitor patient closely in ICU. 05/09 patient has been extubated yesterday he is awake alert and oriented following commands appropriately. Has not had good sleep overnight. Otherwise he is not in distress. He is complaining of hiccups. We can try Phenergan p.r.n.. Patient has passed gas. No BM otherwise. Continue with bowel regimen. Otherwise chest x-ray this morning with mild congestion in the right side. Patient has been using incentive spirometry at 1250 cc. Continue to use this every hour. Urine output is 2.7 L with balance-2.1 L. Continue diuretic. Chest tube output is 290 cc. No pneumothorax. Continue to monitor output closely. Otherwise lab this morning with hemoglobin stable at 9.9 WBC is down to 10 from 14. Platelet count is 51 down from 63. Creatinine is down to 1.3 from 1.4 with bicarb of 28 and potassium is 3.7. Magnesium is 1.7 and electrolyte replacement has been followed. Otherwise patient remains on mechanical circulatory support with intra-aortic balloon pump. Chest x-ray with tip in ICS four. This is in good position. Patient is on 1:3 augmentation. Plan for discontinuation of this device today. Continue ICU care for MCS care and weaning. Hopefully we can am bulate after MCS has been removed. REVIEW OF SYSTEMS: Constitutional: No appetite loss, No fevers, chills , No night sweats, No weakness, fatigue Eye: No vision change, No redness, pain or discharge ENT: No hearing loss, ear pain or discharge, No nose bleeds, No sore throat, Neck: No swelling. pain or stiffness Respiratory: No cough, shortness of breath, wheezing Cardiovascular: Reports mild chest pain, decreased in intensity. No palpitations or syncope. Gastrointestinal: No abdominal pain, No nausea, vomiting, No diarrhea, constipation Genitourinary: No painful urination, No blood in urine, No urinary incontinence, No frequency or urgency Musculoskeletal: No joint pain, muscle pain, swelling or stiffness Neurological: No numbness, tingling, No weakness, tremors or seizures Psychiatric: : No depression, No anxiety, No sleep disturbance, No Memory changes Lymphatic: No easy bruising, No bleeding tendencies , No swollen lymph nodes A 13-point Review of Systems was assessed, all of which are negative except for HPI or as indicated above. PHYSICAL EXAM: GENERAL: AAOx3, follows command HEENT: EOMI, Sclera non icteric, moist mucosa NECK: Supple, no JVD, trachea midline LUNGS: Clear breath sounds bilaterally. No wheezes HEART: Regular rate and rhythm. Normal S1 and S2, without murmurs ABD: Abdomen soft, nontender. Bowel sounds present EXT: No clubbing cyanosis or edema NEURO: Moving all extremities equally. no unilateral weakness. Vital Signs (last 8hr) Date Time Temp Pulse Resp B/P (MAP) Pulse Ox O2 Delivery O2 Flow Rate FiO2 05/09/24 09:00 80 21 134/42 (72) 94 119/68 (85) 05/09/24 08:45 72 16 126/36 (66) 93 05/09/24 08:30 81 24 149/46 (80) 95 113/54 (73) 05/09/24 08:15 85 20 146/43 (77) 94 05/09/24 08:00 93 Nasal Cannula* 2 28 05/09/24 08:00 81 15 128/39 (68) 91 107/48 (67) 05/09/24 07:45 85 21 131/42 (71) 92 05/09/24 07:41 99.0 93 Nasal Cannula 2.0 05/09/24 07:30 88 24 150/50 (83) 96 115/60 (78) 05/09/24 07:15 82 18 134/43 (73) 95 05/09/24 07:00 81 22 127/37 (67) 96 05/09/24 06:30 79 19 N/Cannula Low lpm 2.0 28 05/09/24 05:30 83 22 137/45 (75) 95 93/39 (57) 05/09/24 05:15 82 22 125/40 (68) 94 05/09/24 05:00 76 18 121/38 (65) 94 102/69 (80) 05/09/24 04:45 78 18 129/41 (70) 92 05/09/24 04:30 82 21 132/45 (74) 96 146/53 (84) 05/09/24 04:15 76 19 136/46 (76) 96 05/09/24 04:00 85 21 133/48 (76) 99 113/59 (77) 05/09/24 03:45 83 20 144/42 (76) 95 05/09/24 03:30 86 20 147/50 (82) 96 122/57 (78) 05/09/24 03:15 84 13 138/46 (76) 95 05/09/24 03:00 98.1 83 15 140/49 (79) 97 112/55 (74) 05/09/24 03:00 95 Nasal Cannula* 2 28 05/09/24 02:45 85 20 145/48 (80) 96 05/09/24 02:30 98 19 148/51 (83) 97 128/65 (86) 05/09/24 02:15 86 17 146/51 (82) 96 05/09/24 02:00 83 19 141/48 (79) 95 108/54 (72) LABS: Hematology Labs: Test 05/09/24 04:05 05/08/24 04:06 Range/Units White Blood Count 10.6 # 4.8-10.8 K/uL Red Blood Count 3.14 L 4.50-6.20 MIL/uL Hemoglobin 9.9 L 14.0-18.0 g/dL Hematocrit 29.4 L 42-54 % Mean Corpuscular Volume 93.6 79-99 fL Mean Corpuscular Hemoglobin 31.5 27.0-33.0 pg Mean Corpuscular Hemoglobin Concent 33.7 32.0-36.0 g/dL Red Cell Distribution Width 13.0 11.0-15.5 % Platelet Count 51 L 130-400 K/uL Mean Platelet Volume 10.8 H 7.5-10.5 fL Nucleated Red Blood Cells 0.0 0.0-0.19 % Platelet Morphology Comment See comments Chemistry Labs: Test 05/09/24 07:39 05/09/24 04:05 Range/Units Whole Blood Glucose 139 H 70-110 MG/DL Sodium Level 137 136-145 mmol/L Potassium Level 3.7 3.5-5.1 mmol/L Chloride Level 99 L 101-111 mmol/L Carbon Dioxide Level 28 21-32 mmol/L Blood Urea Nitrogen 29 H 7-18 mg/dL Creatinine 1.3 0.5-1.3 mg/dL Glomerular Filtration Rate Calc 54 >90 mL/min Random Glucose 134 H 70-105 mg/dL Total Calcium 8.6 8.5-10.1 mg/dL Magnesium Level 1.70 L 1.80-2.40 mg/dL Coagulation Labs: Test 05/09/24 04:05 Range/Units Prothrombin Time 11.8 H 9.6-11.6 SEC Prothromb Time International Ratio 1.10 0.85-1.15 DIAGNOSTICS / RADIOLOGY RESULTS: [ ] PLAN NEURO: Minimize central acting medications as possible Maintain fall precautions Adecuate light during the day and minimize interruptions trhough the night to prevent acute delirrium PULMONARY: Supplemental 02 as needed Titrate Fio2 to keep Spo2 > or = 90% DuoNebs and CPT as needed IS hourly while awake for pulmonary hygiene Out of bed to chair as tolerated CARDIOVASCULAR: pending CABG Follow hemodynamics. Titrate vasopressor to keep MAP >65 or systolic blood pressure >95mmHg Consult to CV surgery Consult to cardiology DRIPS: Heparin Nitroglycerin LINES: PIV GI & NUTRITION: Continue nutritional support Aspirations precautions Prokinetic agents and laxatives as needed KIDNEYS & ELECTROLYTES: Strict monitoring of intake and output Daily weights Avoid nephrotoxic agents Monitor electrolytes and replace as needed Goal urine output of 30mL/hr or 0.5mL/kg/hr ENDOCRINE: Maintain blood glucose between 100-180 at all times. Insulin sliding scale for blood glucose management Check HgbA1C Long acting insulin with Lantus INFECTIOUS DISEASE: Trend temperature. Sim-culture if febrile. HEMATOLOGY & COAGULATION: Monitor H&H. Keep Hgb > 7 Transfuse 1 unit of PRBC for Hgb < 7 Transfuse 1 pack of platelets of platelets < 20, 000 Watch for any signs and symptoms of bleeding SKIN: Pressure ulcer prevention per facility protocol Rehab: PT/OT Prophylaxis: GI: famotidine DVT: heparin drip Code Status: Full Resuscitation Disposition: Other: Total patient care time exceeds 35 minutes excluding all procedures. Case was discussed and seen with my supervising physician. The above plan was formulated and agreed upon. DENVER MARTIN FILLING TECHNICIAN May 09, 2024 09:58
[2024-05-09] MEDS: polyETHYLene GLYCol 3350 17 GM POWD.PACK PO SCH (10:02)
[2024-05-09] MEDS: PROMETHAZINE HCL 6.25 MG/5 ML PO PRN (10:02)
[2024-05-09] MEDS: AMIOdarone 900MG VIAL 150 MG in DEXTROSE 5%-WATER 100 ML IV SCH (17:27)
[2024-05-09] MEDS: AMIOdarone 900MG VIAL 360 MG in DEXTROSE 5%-WATER 200 ML IV SCH (17:39)
--- NOTE | 2024-05-09 23:32 | PN ---
TIME: Noon. SUBJECTIVE: The patient is an 83-year-old gentleman status post coronary artery bypass grafting. No major events overnight, recovering well so far. PHYSICAL EXAMINATION: NEUROLOGIC: Alert and oriented, no deficits. CARDIAC: S1, S2. Regular rate and rhythm. RESPIRATORY: Clear to auscultation bilaterally. Incision is clean, dry and intact. Sternum is stable. ASSESSMENT AND PLAN: * Coronary artery disease, status post coronary artery bypass graft,. We will remove intraaortic balloon pump today. We will wean the pressors down slowly as tolerated. * Hypercholesterolemia, on high statin therapy. * Acute blood loss anemia. No evidence of active bleeding. We will continue to monitor. * Volume overload, on Lasix b.i.d. TID: [id number] RECEIPT: [id number]
[2024-05-10] VITALS (78 sets, daily range): BP systolic -2–146; BP diastolic -2–86; PULSE 54–97; RESP 9–45; TEMP 97.7–99.1; O2SAT 94–98
[2024-05-10] MEDS: AMIOdarone 900MG VIAL 540 MG in DEXTROSE 5%-WATER 300 ML IV SCH (00:59)
[2024-05-10 04:19] LABS: HEMATOCRIT 31.4 % (42-54); MEAN CORPUSCULAR HEMOGLOBIN 30.5 pg (27.0-33.0); MEAN CORPUSCULAR HGB CONC 32.8 g/dL (32.0-36.0); MEAN CORPUSCULAR VOLUME 92.9 fL (79-99); RED BLOOD CELL COUNT(AUTO) 3.38 MIL/uL (4.50-6.20); RED CELL DISTRIBUTION WIDTH 12.8 % (11.0-15.5); WHITE BLOOD COUNT (AUTO) 7.1 K/uL (4.8-10.8)
[2024-05-10 04:36] LABS: CREATININE 1.3 mg/dL (0.5-1.3); MAGNESIUM 2.1 mg/dL (1.80-2.40); POTASSIUM 3.2 mmol/L (3.5-5.1)
--- NOTE | 2024-05-10 07:52 | PN ---
[facility] CARDIOLOGY PROGRESS NOTE Date Patient Seen: May 10, 2024 Time of Visit: 07:50 Interval History: [CXR is clear. Physical Examination: GENERAL: [A&Ox3.] HEAD: [Normal with no signs of head trauma.] EYES: [PERRLA, EOMI, conjunctiva and sclera normal.] ENT: [Hearing grossly intact, normal oropharynx.] NECK: [Supple without JVD. There is no tenderness, lymphadenopathy, or masses. No thyromegaly. Normal carotid upstrokes without bruits.] LUNGS: [CTA] HEART: [Normal rate and rhythm. Normal S1 and S2 without mumurs, gallop or rub.] VASC: [Peripheral pulses +2 bilaterally.] ABD: [Bowel sounds normal, soft, nontender, no masses, no organomegaly. No audible bruits.] : [Not examined] LYMPH: [No lymphadenopathy noted.] EXT: [Necrotic toes on RLE.] SKIN: [No rashes or lesions noted.] NEURO: [no deficits] Laboratory: [ ] Hematology Labs: Test 05/10/24 04:08 Range/Units White Blood Count 7.1 4.8-10.8 K/uL Red Blood Count 3.38 L 4.50-6.20 MIL/uL Hemoglobin 10.3 L 14.0-18.0 g/dL Hematocrit 31.4 L 42-54 % Mean Corpuscular Volume 92.9 79-99 fL Mean Corpuscular Hemoglobin 30.5 27.0-33.0 pg Mean Corpuscular Hemoglobin Concent 32.8 32.0-36.0 g/dL Red Cell Distribution Width 12.8 11.0-15.5 % Platelet Count 70 #L 130-400 K/uL Mean Platelet Volume 11.3 H 7.5-10.5 fL Nucleated Red Blood Cells 0.0 0.0-0.19 % Chemistry Labs: Test 05/10/24 06:24 05/10/24 04:08 Range/Units Whole Blood Glucose 171 H 70-110 MG/DL Sodium Level 135 L 136-145 mmol/L Potassium Level 3.2 L 3.5-5.1 mmol/L Chloride Level 99 L 101-111 mmol/L Carbon Dioxide Level 26 21-32 mmol/L Blood Urea Nitrogen 30 H 7-18 mg/dL Creatinine 1.3 0.5-1.3 mg/dL Glomerular Filtration Rate Calc 54 >90 mL/min Random Glucose 189 H 70-105 mg/dL Total Calcium 8.0 L 8.5-10.1 mg/dL Magnesium Level 2.10 1.80-2.40 mg/dL Coagulation Labs: Test 05/09/24 04:05 Range/Units Prothrombin Time 11.8 H 9.6-11.6 SEC Prothromb Time International Ratio 1.10 0.85-1.15 Diagnostics / Radiology: [Copy/Paste Echos/Imaging Report here] Impression and Plan: [#CAD s/p Coronary artery bypass grafting x3 with left internal mammary artery to left anterior descending coronary artery, vein graft bypass to distal left anterior descending coronary artery and vein graft bypass to obtuse marginal/ramus - Insertion of intraaortic balloon pump via the right common femoral artery, good pulses -h/o GISSELLE in 2016 -CXR clear, lasix 20 mg po bid - metoprolol tartrate 12.5 mg bid -c/w asa 81 mg qd, atorvastatin 40 mg qhs, plavix 75 mg qd -2D echo showed mid range LVEF 40-45% Aneta Zaragoza MD ] ANETA ZARAGOZA MD May 10, 2024 07:52
--- NOTE | 2024-05-10 08:59 | HMCIMG ---
CHEST 1VW HISTORY: Post CABG COMPARISON: 05/09/2024 FINDINGS: A frontal projection of the chest was obtained. Minimal left lung infiltrates are seen. Left-sided chest tube is seen. The heart is borderline enlarged. No definite pneumothorax is seen. All the lines and tubes are again seen in place. No evidence of aortic calcification is seen. IMPRESSION: 1. No interval change is seen.
--- NOTE | 2024-05-10 09:24 | PN ---
[facility] PROGRESS NOTE Date Patient Seen: May 10, 2024 Time of Visit: 09:22 Supervising Physician: Dr. Kang Primary Care Physician: Non established- lives in [place]- self pay Outpatient Specialists: NA Inpatient Consults: Dr. Fabricio Greene, Dr. Augusto Zaragoza, Dr. Garcia PROBLEM LIST: Lateral wall ST elevation [place] Status post left heart cardiac catheterization on 05/03/[address] Marin in [facility] Multivessel coronary artery disease S/P CABG x3- CHATMAN to LAD, RSVG to distal LAD, RSVG to OM/ Ramus on 05/[address] Garcia Acute on chronic reduced EF HF- LVEF 40%- POA Metabolic alkalosis- resolved Acute coronary syndrome Chest pain related to ACS Acute kidney injury due to ATN from dehydration Hyperglycemia in the setting of T2DM H/O Coronary artery disease status post PCI stent remote, hypertension, hyperlipidemia, Diabetes mellitus type II INTERVAL HISTORY: 05/05/2024 Yesterday, Dr. Garcia met with the patient to discuss the potential benefits and risks of CABG surgery. Risks explained included los of limb, loss of life, bleeding, infection, stroke, and other complications. the patient demonstrated understanding of the risks and benefits but requested additional time to consider the surgery due to his advanced age. Dr Garcia believes that the patient would likely benefit from the surgery, given his physical strength despite his age, but expressed willingness to honor the patient's decision. Today, the patient is alert and oriented. He reported that he discussed the situation with his family and has decided to proceed with the surgery. Laboratory results, WBC 5.2, Hemoglobin 15.0, Hematocrit 45.1, Platelets 132, Sodium 134, Potassium 3.6, BUN 27, Creatinine 1.3, GFR 54, Glucose 112, Troponin 6883. He has been weaned off of nitroglycerin drip. Continue heparin drip. Asa, statin, Echo with LVEF 40-45%. 05/06 patient underwent coronary artery bypass graft surgery x3 , chatman to LAD, RSVG to distal LAD, RSVG to OM/ ramus by Dr. Garcia. He remains intubated on SIMV 12/550/5/60%. His ABG is reviewed. He is going to be kept intubated overnight. Otherwise his cardiac index is 2.8 and cardiac output is 5.0. He remains on vasopressor with epinephrine drip and Levophed drip. He is on nitroglycerin drip as well. He is with mechanical circulatory support with intra-aortic balloon pump 1:1. Continue follow patient closely with hemodynamic post CABG care. Lab in the morning. Chest x-ray in the morning. 05/07 patient is very lethargic remains intubated on SIMV 4/550/5/40%. He has been weaned off the anxiolytic with the Precedex drip this morning. Continue to keep it off for now. Extubation has been requested per CV. Can do mechanics before extubation. Otherwise he remains with mechanical circulatory support 1:1 and on vasopressors with epinephrine drip at 0.04 mcg. Continue to wean down as tolerated. Cardiac output and cardiac index are unremarkable continue with the hemodynamic monitoring. Chest x-ray this morning with tip of balloon pump in the ICS six, recommend to advance it. Otherwise no pneumothorax. Chest tube are in place x2, output has been 400 cc. Urine output is 1.8 L. Balance is positive 1 L. Continue with current diuretic with Lasix. ABG this morning with pH 7.49 pCO2 is 37 PO2 is 109 this is metabolic alkalosis , recommend to start bicarb diuretic with Diamox if okay with surgery. Otherwise, continue to monitor closely. 05/08 patient is awake , mildly restless, still intubated and gesturing to want to be extubated. Otherwise his vital signs is with blood pressure 144/57 map 86 per invasive blood pressure monitoring, patient remains on mechanical circulatory support with intra-aortic balloon pump at 1:2. Chest x-ray this morning with tip of balloon pump at the ics 4, this is in good position. Lung is clear with scattered congestion. Output of the chest tube is 240 cc. Urine output is 3.5 L with balance-2.2 L. continue strict i/o. This morning with WBC 14 up from 10 hemoglobin is 10.4 down from 11.1. Platelet count is 63 this is down from 103. Consumption from MCS. Watch for bleeding. Chemistry creatinine is 1.4 this is up from 1.3. BUN is 20. Potassium is 4.2 bicarb is 26. ABG pH 7.45 pCO2 35 PO2 is 111. We did the mechanics and patient has good mechanics, is a good candidate for extubation if okay with the CV surgery. Patient has been weaned off of the epinephrine drip. Continue to monitor patient closely in ICU. 05/09 patient has been extubated yesterday he is awake alert and oriented following commands appropriately. Has not had good sleep overnight. Otherwise he is not in distress. He is complaining of hiccups. We can try Phenergan p.r.n.. Patient has passed gas. No BM otherwise. Continue with bowel regimen. Otherwise chest x-ray this morning with mild congestion in the right side. Patient has been using incentive spirometry at 1250 cc. Continue to use this every hour. Urine output is 2.7 L with balance-2.1 L. Continue diuretic. Chest tube output is 290 cc. No pneumothorax. Continue to monitor output closely. Otherwise lab this morning with hemoglobin stable at 9.9 WBC is down to 10 from 14. Platelet count is 51 down from 63. Creatinine is down to 1.3 from 1.4 with bicarb of 28 and potassium is 3.7. Magnesium is 1.7 and electrolyte replacement has been followed. Otherwise patient remains on mechanical circulatory support with intra-aortic balloon pump. Chest x-ray with tip in ICS four. This is in good position. Patient is on 1:3 augmentation. Plan for discontinuation of this device today. Continue ICU care for MCS care and weaning. Hopefully we can ambulate after MCS has been removed. 05/10 patient is awake alert and oriented x3 not in acute distress feeling much better today. He has his intra-aortic balloon pump removed yesterday. He has been weaned off of the vasopressor as well. This morning vital signs with blood pressure of 131/66 map of 87 respiratory rate is 20 pulse is 71 T-max is 98.8 and his oxygen is 96% on room air. With lab this morning WBC of 7.1 hemoglobin is 10.3 platelet count is up to 70 from 51. Sodium 135 potassium is 3.2 chloride is 99 bicarb is 26 creatinine is 1.3 this is similar to yesterday glucose 189. Otherwise he has chest tube, chest x-ray this morning with no pneumothorax, chest tube in place lung schneider is clear compared to yesterday. Chest tube output is 180 cc. Urine output is 1.7 L, balance -650 cc. Patient had bowel movement x1. Overall patient is doing really well. Continue current post CABG care treatment. Continue using incentive spirometry which he has been using up to 750 cc. Encouraged the patient's family to help with this effort. Continue with physical therapy. REVIEW OF SYSTEMS: Constitutional: No appetite loss, No fevers, chills , No night sweats, No weakness, fatigue Eye: No vision change, No redness, pain or discharge ENT: No hearing loss, ear pain or discharge, No nose bleeds, No sore throat, Neck: No swelling. pain or stiffness Respiratory: No cough, shortness of breath, wheezing Cardiovascular: Reports mild chest pain, decreased in intensity. No palpitations or syncope. Gastrointestinal: No abdominal pain, No nausea, vomiting, No diarrhea, constipation Genitourinary: No painful urination, No blood in urine, No urinary incontinence, No frequency or urgency Musculoskeletal: No joint pain, muscle pain, swelling or stiffness Neurological: No numbness, tingling, No weakness, tremors or seizures Psychiatric: : No depression, No anxiety, No sleep disturbance, No Memory changes Lymphatic: No easy bruising, No bleeding tendencies , No swollen lymph nodes A 13-point Review of Systems was assessed, all of which are negative except for HPI or as indicated above. PHYSICAL EXAM: GENERAL: AAOx3, follows command HEENT: EOMI, Sclera non icteric, moist mucosa NECK: Supple, no JVD, trachea midline LUNGS: Clear breath sounds bilaterally. No wheezes HEART: Regular rate and rhythm. Normal S1 and S2, without murmurs ABD: Abdomen soft, nontender. Bowel sounds present EXT: No clubbing cyanosis or edema NEURO: Moving all extremities equally. no unilateral weakness. Vital Signs (last 8hr) Date Time Temp Pulse Resp B/P (MAP) Pulse Ox O2 Delivery O2 Flow Rate FiO2 05/10/24 06:19 71 20 0/-1 (-1) 96 131/66 (87) 05/10/24 05:48 75 20 0/-1 (-1) 96 118/76 (90) 05/10/24 05:18 66 23 -1/-1 (-1) 97 122/65 (84) 05/10/24 04:48 74 22 0/0 (0) 97 95/56 (69) 05/10/24 04:18 74 25 -1/-1 (-1) 97 100/58 (72) 05/10/24 04:03 97.7 69 15 -1/-1 (-1) 94 05/10/24 04:00 95 Nasal Cannula* 2 28 05/10/24 04:00 97.7 05/10/24 03:48 71 23 -1/-1 (-1) 96 115/68 (84) 05/10/24 03:43 69 18 0/-1 (-1) 97 121/61 (81) 05/10/24 03:18 75 19 -1/-1 (-1) 92 89/46 (60) 05/10/24 02:48 88 21 -1/-1 (-1) 95 112/59 (76) 05/10/24 02:18 79 17 -1/-2 (-2) 97 124/51 (75) 05/10/24 01:48 76 16 -1/-2 (-2) 96 130/65 (86) LABS: Hematology Labs: Test 05/10/24 04:08 Range/Units White Blood Count 7.1 4.8-10.8 K/uL Red Blood Count 3.38 L 4.50-6.20 MIL/uL Hemoglobin 10.3 L 14.0-18.0 g/dL Hematocrit 31.4 L 42-54 % Mean Corpuscular Volume 92.9 79-99 fL Mean Corpuscular Hemoglobin 30.5 27.0-33.0 pg Mean Corpuscular Hemoglobin Concent 32.8 32.0-36.0 g/dL Red Cell Distribution Width 12.8 11.0-15.5 % Platelet Count 70 #L 130-400 K/uL Mean Platelet Volume 11.3 H 7.5-10.5 fL Nucleated Red Blood Cells 0.0 0.0-0.19 % Chemistry Labs: Test 05/10/24 06:24 05/10/24 04:08 Range/Units Whole Blood Glucose 171 H 70-110 MG/DL Sodium Level 135 L 136-145 mmol/L Potassium Level 3.2 L 3.5-5.1 mmol/L Chloride Level 99 L 101-111 mmol/L Carbon Dioxide Level 26 21-32 mmol/L Blood Urea Nitrogen 30 H 7-18 mg/dL Creatinine 1.3 0.5-1.3 mg/dL Glomerular Filtration Rate Calc 54 >90 mL/min Random Glucose 189 H 70-105 mg/dL Total Calcium 8.0 L 8.5-10.1 mg/dL Magnesium Level 2.10 1.80-2.40 mg/dL Coagulation Labs: Test 05/09/24 04:05 Range/Units Prothrombin Time 11.8 H 9.6-11.6 SEC Prothromb Time International Ratio 1.10 0.85-1.15 DIAGNOSTICS / RADIOLOGY RESULTS: [ ] PLAN NEURO: Minimize central acting medications as possible Maintain fall precautions Adecuate light during the day and minimize interruptions trhough the night to prevent acute delirrium PULMONARY: Supplemental 02 as needed Titrate Fio2 to keep Spo2 > or = 90% DuoNebs and CPT as needed IS hourly while awake for pulmonary hygiene Out of bed to chair as tolerated CARDIOVASCULAR: pending CABG Follow hemodynamics. Titrate vasopressor to keep MAP >65 or systolic blood pressure >95mmHg Consult to CV surgery Consult to cardiology DRIPS: Heparin Nitroglycerin LINES: PIV GI & NUTRITION: Continue nutritional support Aspirations precautions Prokinetic agents and laxatives as needed KIDNEYS & ELECTROLYTES: Strict monitoring of intake and output Daily weights Avoid nephrotoxic agents Monitor electrolytes and replace as needed Goal urine output of 30mL/hr or 0.5mL/kg/hr ENDOCRINE: Maintain blood glucose between 100-180 at all times. Insulin sliding scale for blood glucose management Check HgbA1C Long acting insulin with Lantus INFECTIOUS DISEASE: Trend temperature. Sim-culture if febrile. HEMATOLOGY & COAGULATION: Monitor H&H. Keep Hgb > 7 Transfuse 1 unit of PRBC for Hgb < 7 Transfuse 1 pack of platelets of platelets < 20, 000 Watch for any signs and symptoms of bleeding SKIN: Pressure ulcer prevention per facility protocol Rehab: PT/OT Prophylaxis: GI: famotidine DVT: heparin drip Code Status: Full Resuscitation Disposition: Other: Total patient care time exceeds 35 minutes excluding all procedures. Case was discussed and seen with my supervising physician. The above plan was formulated and agreed upon. [facility] May 10, 2024 09:24
--- NOTE | 2024-05-10 13:35 | EKG ---
[facility] Test Date: 2024-05-09 Test Time: 16:10:29 Pat Name: ERICA CHATMAN Department[facility] Patient ID: [facility] [place], [place]-[id number] Room: 210 1 Gender: M Pediatric Psychologist: [email or web address] : 1940 Requested By: ELEN SEGUNDO Order Number: [id number] Reading MD: Arvind Merino Measurements Intervals [place] Rate: 143 P: 0 MS: 0 QRS: -112 QRSD: 119 T: 80 QT: 341 QTc: 527 Interpretive Statements Atrial fibrillation with rapid V-rate Right bundle branch block Lateral infarct, question age Compared to ECG 05/07/2024 07:46:53 Right bundle-branch block now present Sinus rhythm no longer present First degree AV block no longer present Incomplete right bundle-branch block no longer present ST (T wave) deviation no longer present Myocardial infarct finding still present Electronically Signed On 05-10-2024 14:58:08 EVENT ATTENDANT by Arvind Merino Please click the below link to view image of tracing.
[2024-05-10] MEDS: AMIOdarone 200 MG TABLET PO SCH (15:48)
[2024-05-10] MEDS: BENZONATATE 100 MG CAPSULE PO PRN (21:44)
[2024-05-10] MEDS: guaiFENesin SUGAR-FREE 100 MG/5 ML UDCUP PO PRN (22:54)
--- NOTE | 2024-05-10 23:17 | PN ---
SUBJECTIVE: An 83-year-old gentleman who was referred for cardiac surgery. He underwent a CABG on 05/06, coursing postoperative day #4. OBJECTIVE: GENERAL: He is awake, alert, in no acute distress. VITAL SIGNS: Stable as recorded in medical record. He is in sinus rhythm. CHEST: Sternum is stable. LUNGS: Clear. EXTREMITIES: 1+ pitting edema. ASSESSMENT: Status post coronary artery bypass graft. PROBLEMS: * Atrial fibrillation. The patient responded to amiodarone IV bolus followed by drip, will start 200 mg twice a day today. * Fluid overload. Lasix 20 mg twice a day. * Coronary ischemia and status post coronary artery bypass graft. Aspirin 81 mg, metoprolol 25 mg twice a day. * Dyslipidemia. Lipitor 40 mg once a day. PLAN: Discontinue chest tubes. PT, OT, cardiac rehab, discharge planning to rehab. TID: [id number] RECEIPT: [id number]
[2024-05-10] MEDS ORDERED: NITROGLYCERIN 50MG/D5W 250ML 250 BOT IV PRN (23:30)
[2024-05-10] MEDS ORDERED: NOREPINEPHRIN 4MG/NS 250ML 250 ML IV PRN (23:30)
[2024-05-10] MEDS ORDERED: NITROGLYCERIN 0.4 MG SL TAB SL PRN (23:30)
--- NOTE | 2024-05-10 23:30 | HMCIMG ---
CHEST 1VW HISTORY: Shortness of breath COMPARISON: None FINDINGS: A frontal projection of the chest was obtained. No acute pulmonary infiltrates is seen. Poststernotomy changes are seen. The heart is enlarged. Degenerative changes of the thoracolumbar spine are present. Prominent interstitial markings are seen. No evidence of aortic calcification is seen. IMPRESSION: 1. Prominent interstitial markings with early infiltrates not excluded.
[2024-05-10 23:31] LABS: ABG BASE EXCESS 3.4 mmol/L (-2.0-3.0); ABG HCO3 25.5 mmol/L (21.0-28.0); ABG OXYGEN SATURATION 97.1 % (94.0-98.0); ABG PCO2 32 mmHg (35-48); ABG PH 7.522 (7.350-7.450); PO2, ARTERIAL BG 81.9 mmHg (83.0-108.0); VENT MODE, BG NC,28 (ROOM AIR)
[2024-05-11] VITALS (45 sets, daily range): BP systolic 91–134; BP diastolic 47–73; PULSE 62–126; RESP 13–27; TEMP 98–99.5; O2SAT 95–97
[2024-05-11] MEDS: AMIOdarone 900MG VIAL 150 MG in DEXTROSE 5%-WATER 100 ML IV SCH (00:50)
[2024-05-11] MEDS: AMIOdarone 900MG VIAL 360 MG in DEXTROSE 5%-WATER 200 ML IV SCH (00:51)
[2024-05-11 04:04] LABS: MEAN CORPUSCULAR HEMOGLOBIN 30.7 pg (27.0-33.0); MEAN CORPUSCULAR HGB CONC 33.3 g/dL (32.0-36.0); RED BLOOD CELL COUNT(AUTO) 3.26 MIL/uL (4.50-6.20); RED CELL DISTRIBUTION WIDTH 12.4 % (11.0-15.5); WHITE BLOOD COUNT (AUTO) 7.3 K/uL (4.8-10.8)
[2024-05-11 04:18] LABS: CREATININE 1.3 mg/dL (0.5-1.3); POTASSIUM 3.3 mmol/L (3.5-5.1)
--- NOTE | 2024-05-11 06:51 | EKG ---
[facility] Test Date: 2024-05-10 Test Time: 22:07:07 Pat Name: ERICA CHATMAN Department: [facility] Room: 230 Gender: M Internal Communications Specialist: [id number] : 1940 Requested By: THAD HINTON Order Number: [id number] Reading MD: Ricardo Siddiqui Measurements Intervals [place] Rate: 80 P: 20 SC: 168 QRS: -92 QRSD: 127 T: 79 QT: 425 QTc: 493 Interpretive Statements Sinus rhythm Ventricular premature complex RBBB and LAFB ST elevation secondary to IVCD ST elevation, consider inferior injury Compared to ECG 05/09/2024 16:10:29 Ventricular premature complex(es) now present Left anterior fascicular block now present Intraventricular conduction delay now present ST (T wave) deviation now present Atrial fibrillation no longer present Myocardial infarct finding still present Electronically Signed On 05-13-2024 18:31:13 WASTEWATER TREATMENT SUPERVISOR by Ricardo Siddiqui Please click the below link to view image of tracing.
[2024-05-11] MEDS: INSULIN humuLIN R 100 UNIT/ML 3ML SQ SCH (07:30)
[2024-05-11] MEDS: AMIOdarone 900MG VIAL 540 MG in DEXTROSE 5%-WATER 300 ML IV SCH (07:44)
--- NOTE | 2024-05-11 07:47 | PN ---
[facility] CARDIOLOGY PROGRESS NOTE Date Patient Seen: May 11, 2024 Time of Visit: 07:44 Interval History: [Chest tubes are out. Patient developed a-fib RVR overnight 140s bpm and chest pain. S/p amiodarone bolus and gtt and nitro gtt. Replacing K. Physical Examination: GENERAL: [A&Ox3.] HEAD: [Normal with no signs of head trauma.] EYES: [PERRLA, EOMI, conjunctiva and sclera normal.] ENT: [Hearing grossly intact, normal oropharynx.] NECK: [Supple without JVD. There is no tenderness, lymphadenopathy, or masses. No thyromegaly. Normal carotid upstrokes without bruits.] LUNGS: [CTA] HEART: [Normal rate and rhythm. Normal S1 and S2 without mumurs, gallop or rub.] VASC: [Peripheral pulses +2 bilaterally.] ABD: [Bowel sounds normal, soft, nontender, no masses, no organomegaly. No audible bruits.] : [Not examined] LYMPH: [No lymphadenopathy noted.] EXT: [Necrotic toes on RLE.] SKIN: [No rashes or lesions noted.] NEURO: [no deficits] Laboratory: [ ] Hematology Labs: Test 05/11/24 03:41 Range/Units White Blood Count 7.3 4.8-10.8 K/uL Red Blood Count 3.26 L 4.50-6.20 MIL/uL Hemoglobin 10.0 L 14.0-18.0 g/dL Hematocrit 30.0 L 42-54 % Mean Corpuscular Volume 92.0 79-99 fL Mean Corpuscular Hemoglobin 30.7 27.0-33.0 pg Mean Corpuscular Hemoglobin Concent 33.3 32.0-36.0 g/dL Red Cell Distribution Width 12.4 11.0-15.5 % Platelet Count 110 #L 130-400 K/uL Mean Platelet Volume 11.3 H 7.5-10.5 fL Nucleated Red Blood Cells 0.0 0.0-0.19 % Chemistry Labs: Test 05/11/24 03:41 05/10/24 23:16 05/10/24 20:10 Range/Units Sodium Level 134 L 136-145 mmol/L Potassium Level 3.3 L 3.5-5.1 mmol/L Chloride Level 98 L 101-111 mmol/L Carbon Dioxide Level 28 21-32 mmol/L Blood Urea Nitrogen 27 H 7-18 mg/dL Creatinine 1.3 0.5-1.3 mg/dL Glomerular Filtration Rate Calc 54 >90 mL/min Random Glucose 276 H 70-105 mg/dL Total Calcium 7.8 L 8.5-10.1 mg/dL Magnesium Level 1.90 1.80-2.40 mg/dL Troponin I High Sensitivity 3838 *H 4-75 ng/L Whole Blood Glucose 211 H 70-110 MG/DL Coagulation Labs: Test 05/10/24 23:16 Range/Units D-Dimer Quantitative (PE/DVT) 3278 *H 0-500 ng/mL Diagnostics / Radiology: [Copy/Paste Echos/Imaging Report here] Impression and Plan: [#CAD s/p Coronary artery bypass grafting x3 with left internal mammary artery to left anterior descending coronary artery, vein graft bypass to distal left anterior descending coronary artery and vein graft bypass to obtuse marginal/ramus - Insertion of intraaortic balloon pump via the right common femoral artery, g ood pulses -h/o GISSELLE in 2016 -CXR clear, lasix 20 mg po bid - metoprolol tartrate 12.5 mg bid -c/w asa 81 mg qd, atorvastatin 40 mg qhs, plavix 75 mg qd -2D echo showed mid range LVEF 40-45% #post op a-fib -could be due to hypokalemia, giving 40 meq now and BMP at 1 pm and started daily 20 meq -amiodarone bolus given 05/11 #Intractable hiccups -started prn chlorpromethazine 25 mg q8hr Aneta Zaragoza MD ] ANETA ZARAGOZA MD May 11, 2024 07:47
[2024-05-11] MEDS: INSULIN GLARgine 100 UNITS/ML 10 ML VIAL SQ SCH (08:28)
[2024-05-11] MEDS: PoTASSium chloRIDE 20MEQ ER 20 MEQ ERTAB PO SCH (08:29)
[2024-05-11] MEDS: PoTASSium chloRIDE 20MEQ ER 20 MEQ ERTAB PO ONE (08:30)
--- NOTE | 2024-05-11 09:06 | PN ---
[facility] PROGRESS NOTE Date Patient Seen: May 11, 2024 Time of Visit: 08:49 Supervising Physician: Danni Nunez MD Primary Care Physician: Non established- lives in [place]- self pay Outpatient Specialists: NA Inpatient Consults: Dr. Fabricio Greene, Dr. Augusto Zaragoza, Dr. Garcia PROBLEM LIST: Acute hypoxic respiratory failure postop as expected 2L Postop Paroxysmal AFib with RVR Lateral wall ST elevation [place] Status post left heart cardiac catheterization on 05/03/[address] Marin in [place] [facility] Multivessel coronary artery disease S/P CABG x3- CHATMAN to LAD, RSVG to distal LAD, RSVG to OM/ Ramus on 05/[address] Garcia Acute on chronic reduced EF HF- LVEF 40%- POA Metabolic alkalosis- resolved Acute coronary syndrome Chest pain related to ACS Acute kidney injury due to ATN from dehydration Hyperglycemia in the setting of T2DM H/O Coronary artery disease status post PCI stent remote, hypertension, hyperlipidemia, Diabetes mellitus type II INTERVAL HISTORY: 05/05/2024 Yesterday, Dr. Garcia met with the patient to discuss the potential benefits and risks of CABG surgery. Risks explained included los of limb, loss of life, bleeding, infection, stroke, and other complications. the patient demonstrated understanding of the risks and benefits but requested additional time to consider the surgery due to his advanced age. Dr Garcia believes that the patient would likely benefit from the surgery, given his physical strength despite his age, but expressed willingness to honor the patient's decision. Today, the patient is alert and oriented. He reported that he discussed the situation with his family and has decided to proceed with the surgery. Labor atory results, WBC 5.2, Hemoglobin 15.0, Hematocrit 45.1, Platelets 132, Sodium 134, Potassium 3.6, BUN 27, Creatinine 1.3, GFR 54, Glucose 112, Troponin 6883. He has been weaned off of nitroglycerin drip. Continue heparin drip. Asa, statin, Echo with LVEF 40-45%. 05/06 patient underwent coronary artery bypass graft surgery x3 , chatman to LAD, RSVG to distal LAD, RSVG to OM/ ramus by Dr. Garcia. He remains intubated on SIMV 12/550/5/60%. His ABG is reviewed. He is going to be kept intubated overnight. Otherwise his cardiac index is 2.8 and cardiac output is 5.0. He remains on vasopressor with epinephrine drip and Levophed drip. He is on nitroglycerin drip as well. He is with mechanical circulatory support with intra-aortic balloon pump 1:1. Continue follow patient closely with hemodynamic post CABG care. Lab in the morning. Chest x-ray in the morning. 05/07 patient is very lethargic remains intubated on SIMV 4/550/5/40%. He has been weaned off the anxiolytic with the Precedex drip this morning. Continue to keep it off for now. Extubation has been requested per CV. Can do mechanics before extubation. Otherwise he remains with mechanical circulatory support 1:1 and on vasopressors with epinephrine drip at 0.04 mcg. Continue to wean down as tolerated. Cardiac output and cardiac index are unremarkable continue with the hemodynamic monitoring. Chest x-ray this morning with tip of balloon pump in the ICS six, recommend to advance it. Otherwise no pneumothorax. Chest tube are in place x2, output has been 400 cc. Urine output is 1.8 L. Balance is positive 1 L. Continue with current diuretic with Lasix. ABG this morning with pH 7.49 pCO2 is 37 PO2 is 109 this is metabolic alkalosis , recommend to start bicarb diuretic with Diamox if okay with surgery. Otherwise, continue to monitor closely. 05/08 patient is awake , mildly restless, still intubated and gesturing to want to be extubated. Otherwise his vital signs is with blood pressure 144/57 map 86 per invasive blood pressure monitoring, patient remains on mechanical circulatory support with intra-aortic balloon pump at 1:2. Chest x-ray this morning with tip of balloon pump at the ics 4, this is in good position. Lung is clear with scattered congestion. Output of the chest tube is 240 cc. Urine output is 3.5 L with balance-2.2 L. continue strict i/o. This morning with WBC 14 up from 10 hemoglobin is 10.4 down from 11.1. Platelet count is 63 this is down from 103. Consumption from MCS. Watch for bleeding. Chemistry creatinine is 1.4 this is up from 1.3. BUN is 20. Potassium is 4.2 bicarb is 26. ABG pH 7.45 pCO2 35 PO2 is 111. We did the mechanics and patient has good mechanics, is a good candidate for extubation if okay with the CV surgery. Patient has been weaned off of the epinephrine drip. Continue to monitor patient closely in ICU. 05/09 patient has been extubated yesterday he is awake alert and oriented following commands appropriately. Has not had good sleep overnight. Otherwise he is not in distress. He is complaining of hiccups. We can try Phenergan p.r.n.. Patient has passed gas. No BM otherwise. Continue with bowel regimen. Otherwise chest x-ray this morning with mild congestion in the right side. Patient has been using incentive spirometry at 1250 cc. Continue to use this every hour. Urine output is 2.7 L with balance-2.1 L. Continue diuretic. Chest tube output is 290 cc. No pneumothorax. Continue to monitor output closely. Otherwise lab this morning with hemoglobin stable at 9.9 WBC is down to 10 from 14. Platelet count is 51 down from 63. Creatinine is down to 1.3 from 1.4 with bicarb of 28 and potassium is 3.7. Magnesium is 1.7 and electrolyte replacement has been followed. Otherwise patient remains on mechanical circulatory support with intra-aortic balloon pump. Chest x-ray with tip in ICS four. This is in good position. Patient is on 1:3 augmentation. Plan for discontinuation of this device today. Continue ICU care for MCS care and weaning. Hopefully we can ambulate after MCS has been removed. 05/10 patient is awake alert and oriented x3 not in acute distress feeling much better today. He has his intra-aortic balloon pump removed yesterday. He has been weaned off of the vasopressor as well. This morning vital signs with blood pressure of 131/66 map of 87 respiratory rate is 20 pulse is 71 T-max is 98.8 and his oxygen is 96% on room air. With lab this morning WBC of 7.1 hemoglobin is 10.3 platelet count is up to 70 from 51. Sodium 135 potassium is 3.2 chloride is 99 bicarb is 26 creatinine is 1.3 this is similar to yesterday glucose 189. Otherwise he has chest tube, chest x-ray this morning with no pneumothorax, chest tube in place lung schneider is clear compared to yesterday. Chest tube output is 180 cc. Urine output is 1.7 L, balance -650 cc. Patient had bowel movement x1. Overall patient is doing really well. Continue current post CABG care treatment. Continue using incentive spirometry which he has been using up to 750 cc. Encouraged the patient's family to help with this effort. Continue with physical therapy. 05/11-patient is awake alert and oriented x3. Overnight he was brought back to the ICU after an episode of a coughing spell, AFib with RVR and chest pain. He was started on nitroglycerin drip at 5 micrograms/minute and amiodarone drip per protocol. He was also given a bolus 150 mg of amiodarone and he is now converted back to sinus rhythm rate in the 80s, hemodynamically stable blood pressure 105/62 respiratory rate of 20 saturating 98% at 2 L via nasal cannula. Patient has been afebrile with a T-max of 99.1 F and T low of 97.7. Urine output not accurate in the last 24 hours we will add daily weights. Chest tubes removed yesterday. This morning chest x-ray was trachea midline, with increased pulmonary vascular congestion, no apparent pneumothorax, no pleural effusion noted. Post sternotomy changes. Pending official read from Radiology. On laboratory WBCs are 7.3 H&H are stable 10 over thirty, platelet count is [id number] improved from yesterday. Chemistries sodium 134 potassium is 3.3 corrected per protocol chloride 98 CO2 28, BUN 27 creatinine 1.3 GFR 54 similar to yesterday. Magnesium 1.9 troponins trending down as expected post CABG. REVIEW OF SYSTEMS: Constitutional: No appetite loss, No fevers, chills , No night sweats, No weakness, fatigue Eye: No vision change, No redness, pain or discharge ENT: No hearing loss, ear pain or discharge, No nose bleeds, No sore throat, Neck: No swelling. pain or stiffness Respiratory: No cough, shortness of breath, wheezing Cardiovascular: Reports mild chest pain, decreased in intensity. No palpitations or syncope. Gastrointestinal: No abdominal pain, No nausea, vomiting, No diarrhea, constipation Genitourinary: No painful urination, No blood in urine, No urinary incontinence, No frequency or urgency Musculoskeletal: No joint pain, muscle pain, swelling or stiffness Neurological: No numbness, tingling, No weakness, tremors or seizures Psychiatric: : No depression, No anxiety, No sleep disturbance, No Memory changes Lymphatic: No easy bruising, No bleeding tendencies , No swollen lymph nodes A 13-point Review of Systems was assessed, all of which are negative except for HPI or as indicated above. PHYSICAL EXAM: GENERAL: AAOx3, follows command HEENT: EOMI, Sclera non icteric, moist mucosa NECK: Supple, no JVD, trachea midline LUNGS: Clear breath sounds bilaterally. No wheezes HEART: Regular rate and rhythm. Normal S1 and S2, without murmurs ABD: Abdomen soft, nontender. Bowel sounds present EXT: No clubbing cyanosis or edema NEURO: Moving all extremities equally. no unilateral weakness. Vital Signs (last 8hr) Date Time Temp Pulse Resp B/P (MAP) Pulse Ox O2 Delivery O2 Flow Rate FiO2 05/11/24 06:57 82 20 N/Cannula Low lpm 2.0 28 05/11/24 06:16 119 14 105/62 98 Nasal Cannula 2.0 05/11/24 06:00 84 22 121/63 97 Nasal Cannula 2.0 05/11/24 05:45 84 22 128/64 98 Nasal Cannula 2.0 05/11/24 05:30 82 18 127/61 99 Nasal Cannula 2.0 05/11/24 05:15 81 16 126/68 97 Nasal Cannula 2.0 05/11/24 05:00 86 19 114/64 96 Nasal Cannula 2.0 05/11/24 04:45 95 13 107/67 94 Nasal Cannula 2.0 05/11/24 04:30 84 26 94/57 98 Nasal Cannula 2.0 05/11/24 04:15 97 24 114/67 97 Nasal Cannula 2.0 05/11/24 04:00 92 25 124/65 97 Nasal Cannula 05/11/24 03:45 91 21 124/65 97 Nasal Cannula 05/11/24 03:30 92 21 119/67 96 Nasal Cannula 05/11/24 03:16 126 22 101/65 96 Nasal Cannula 05/11/24 03:01 94 24 125/61 97 Nasal Cannula 05/11/24 02:45 90 26 119/66 97 Nasal Cannula 05/11/24 02:30 88 23 106/68 97 Nasal Cannula 05/11/24 02:15 91 25 91/63 96 Nasal Cannula 05/11/24 02:00 114 27 116/66 97 Nasal Cannula 05/11/24 01:45 64 14 102/54 98 Nasal Cannula 05/11/24 01:30 100 18 126/73 97 Nasal Cannula 05/11/24 01:15 86 27 121/69 97 Nasal Cannula 2.0 05/11/24 01:00 93 20 114/67 94 Nasal Cannula 2.0 LABS: Hematology Labs: Test 05/11/24 03:41 Range/Units White Blood Count 7.3 4.8-10.8 K/uL Red Blood Count 3.26 L 4.50-6.20 MIL/uL Hemoglobin 10.0 L 14.0-18.0 g/dL Hematocrit 30.0 L 42-54 % Mean Corpuscular Volume 92.0 79-99 fL Mean Corpuscular Hemoglobin 30.7 27.0-33.0 pg Mean Corpuscular Hemoglobin Concent 33.3 32.0-36.0 g/dL Red Cell Distribution Width 12.4 11.0-15.5 % Platelet Count 110 #L 130-400 K/uL Mean Platelet Volume 11.3 H 7.5-10.5 fL Nucleated Red Blood Cells 0.0 0.0-0.19 % Chemistry Labs: Test 05/11/24 03:41 05/10/24 23:16 05/10/24 20:10 Range/Units Sodium Level 134 L 136-145 mmol/L Potassium Level 3.3 L 3.5-5.1 mmol/L Chloride Level 98 L 101-111 mmol/L Carbon Dioxide Level 28 21-32 mmol/L Blood Urea Nitrogen 27 H 7-18 mg/dL Creatinine 1.3 0.5-1.3 mg/dL Glomerular Filtration Rate Calc 54 >90 mL/min Random Glucose 276 H 70-105 mg/dL Total Calcium 7.8 L 8.5-10.1 mg/dL Magnesium Level 1.90 1.80-2.40 mg/dL Troponin I High Sensitivity 3838 *H 4-75 ng/L Whole Blood Glucose 211 H 70-110 MG/DL Coagulation Labs: Test 05/10/24 23:16 Range/Units D-Dimer Quantitative (PE/DVT) 3278 *H 0-500 ng/mL DIAGNOSTICS / RADIOLOGY RESULTS: [ ] PLAN Follow CT surgeon recommendations Follow cardiology recommendations Amiodarone drip per protocol per cardiology Nitroglycerin drip per CV surgery Multimodal pain management Monitoring H&H Chest x-ray in the morning Transfuse if absolutely necessary to keep hemoglobin above 8 Maintain O2 sats greater than 92% Incentive spirometry Glycemic control with goal of 80-180 Referral for cardiac rehabilitation PT to eval and treat. CBC BMP, magnesium, phosphorus in the morning COVID-19 and influenza swab Daily weight Lantus 10 units subQ b.i.d. ISS NEURO: Minimize central acting medications as possible. Maintain fall precautions, adequate lighting during the day PULMONARY: Supplemental 02 as needed. Maintain aspiration precautions at all times CARDIOVASCULAR: Follow hemodynamics. Vital signs per facility protocol GI & NUTRITION: Continue with nutritional support. Continue stool softeners and laxatives as needed. KIDNEYS & ELECTROLYTES: Strict monitoring of intake, output and overall fluid balance. Avoid nephrotoxic medications to the extent possible. Medications to be dosed according to renal function. Monitor electrolytes and replace as needed ENDOCRINE: Maintain blood glucose between 100-180 at all times. Hypoglycemia protocol in place INFECTIOUS DISEASE: Trend temperature, WBC and procalcitonin level Follow cultures, deescalate antibiotics as soon as possible. Panculture if new onset fever ONCOLOGY/HEMATOLOGY/COAGULATION: Monitor for s/s of bleeding Monitor hemoglobin, coagulation studies as needed SKIN: Pressure ulcer prevention per facility protocol Specialty mattress ORTHO/REHAB: Continue PT/OT Prophylaxis: Continue GI and DVT prophylaxis Code Status: Full Resuscitation Disposition: TBD Other: Total patient care time exceeds 35 minutes excluding all procedures. PHAM ELIZONDO May 11, 2024 09:06
[2024-05-11] MEDS: chlorproMAZINE HCL 25 MG TAB PO PRN (09:37)
[2024-05-11 10:21] LABS: COVID19 (SARS ANTIGEN RAPID) PRESUMPTIVE NEGATIVE (NEGATIVE); INFLUENZA TYPE A Negative For Type A (NEGATIVE); INFLUENZA TYPE B Negative For Type B (NEGATIVE)
--- NOTE | 2024-05-11 11:34 | EKG ---
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
[2024-05-11] MEDS: metoCLOPRAmide 10 MG/2 ML VIAL IVP SCH (11:38)
--- NOTE | 2024-05-11 11:45 | HMCIMG ---
CHEST 1VW HISTORY: Post CABG COMPARISON: 05/10/2024 FINDINGS: A frontal projection of the chest was obtained. Mild bilateral pulmonary infiltrates are seen may be related to mild pulmonary vascular congestion with possible superimposed pneumonitis. Poststernotomy changes are seen. The heart is enlarged. Degenerative changes of the thoracolumbar spine are present. Aortic calcifications are seen. IMPRESSION: 1. Mild bilateral pulmonary infiltrates are seen may be related to mild pulmonary vascular congestion with possible superimposed pneumonitis.
[2024-05-11 12:27] LABS: CREATININE 1.3 mg/dL (0.5-1.3); POTASSIUM 3.6 mmol/L (3.5-5.1)
[2024-05-11] MEDS: NYSTatin 100000 UNIT/ML 5ML UDCUP PO SCH (21:40)
[2024-05-12] VITALS (9 sets, daily range): BP systolic 103–132; BP diastolic 48–72; PULSE 47–92; RESP 18–22; TEMP 97.7–99.3; O2SAT 96–97
[2024-05-12 03:56] LABS: BASOPHILS # (AUTO) 0.02 K/uL (0.00-0.20); BASOPHILS % (AUTO) 0.3 % (0.0-5.0); EOSINOPHILS # (AUTO) 0.04 K/uL (0.00-0.70); EOSINOPHILS % (AUTO) 0.5 % (0.0-8.0); HEMATOCRIT 28.3 % (42-54); IMMATURE GRANULOCYTE ABSOLUTE 0.08 K/uL (0-1); LYMPHOCYTES # (AUTO) 0.6 K/uL (1.0-4.8); LYMPHOCYTES % (AUTO) 8.5 % (21.0-51.0); MEAN CORPUSCULAR HGB CONC 33.6 g/dL (32.0-36.0); MEAN CORPUSCULAR VOLUME 92.5 fL (79-99); MONOCYTES # (AUTO) 0.8 K/uL (0.1-1.0); MONOCYTES % (AUTO) 10.3 % (3.0-13.0); NEUTROPHILS % (AUTO) 79.3 % (40.0-77.0); PLATELET COUNT (AUTO) 132 K/uL (130-400); RED BLOOD CELL COUNT(AUTO) 3.06 MIL/uL (4.50-6.20); RED CELL DISTRIBUTION WIDTH 12.5 % (11.0-15.5); WHITE BLOOD COUNT (AUTO) 7.6 K/uL (4.8-10.8)
[2024-05-12 04:12] LABS: ALBUMIN 2.3 g/dL (3.5-5.0); BILIRUBIN,TOTAL 0.8 mg/dL (0.2-1.0); CREATININE 1.4 mg/dL (0.5-1.3); MAGNESIUM 2.3 mg/dL (1.80-2.40); PHOSPHORUS 2.6 mg/dL (2.5-4.9); POTASSIUM 3.2 mmol/L (3.5-5.1)
--- NOTE | 2024-05-12 07:31 | PN ---
[facility] PROGRESS NOTE Date Patient Seen: May 12, 2024 Time of Visit: 07:29 Interval History: [Replacing K. Small runs of paroxysmal a-fib overnight 130s but short lived. Physical Examination: GENERAL: [A&Ox3.] HEAD: [Normal with no signs of head trauma.] EYES: [PERRLA, EOMI, conjunctiva and sclera normal.] ENT: [Hearing grossly intact, normal oropharynx.] NECK: [Supple without JVD. There is no tenderness, lymphadenopathy, or masses. No thyromegaly. Normal carotid upstrokes without bruits.] LUNGS: [CTA] HEART: [Normal rate and rhythm. Normal S1 and S2 without mumurs, gallop or rub.] VASC: [Peripheral pulses +2 bilaterally.] ABD: [Bowel sounds normal, soft, nontender, no masses, no organomegaly. No audible bruits.] : [Not examined] LYMPH: [No lymphadenopathy noted.] EXT: [Necrotic toes on RLE.] SKIN: [No rashes or lesions noted.] NEURO: [no deficits] Laboratory: [ ] Hematology Labs: Test 05/12/24 03:22 Range/Units White Blood Count 7.6 4.8-10.8 K/uL Red Blood Count 3.06 L 4.50-6.20 MIL/uL Hemoglobin 9.5 L 14.0-18.0 g/dL Hematocrit 28.3 L 42-54 % Mean Corpuscular Volume 92.5 79-99 fL Mean Corpuscular Hemoglobin 31.0 27.0-33.0 pg Mean Corpuscular Hemoglobin Concent 33.6 32.0-36.0 g/dL Red Cell Distribution Width 12.5 11.0-15.5 % Platelet Count 132 130-400 K/uL Mean Platelet Volume 10.9 H 7.5-10.5 fL Immature Granulocyte % (Auto) 1.1 H 0-1 % Neutrophils (%) (Auto) 79.3 H 40.0-77.0 % Lymphocytes (%) (Auto) 8.5 L 21.0-51.0 % Monocytes (%) (Auto) 10.3 3.0-13.0 % Eosinophils (%) (Auto) 0.5 0.0-8.0 % Basophils (%) (Auto) 0.3 0.0-5.0 % Neutrophils # (Auto) 6.0 1.8-7.7 K/uL Lymphocytes # (Auto) 0.6 L 1.0-4.8 K/uL Monocytes # (Auto) 0.8 0.1-1.0 K/uL Eosinophils # (Auto) 0.04 0.00-0.70 K/uL Basophils # (Auto) 0.02 0.00-0.20 K/uL Absolute Immature Granulocyte (auto 0.08 0-1 K/uL Nucleated Red Blood Cells 0.0 0.0-0.19 % White Cell Morphology Comment See comments Chemistry Labs: Test 05/12/24 06:21 05/12/24 03:22 05/10/24 23:16 Range/Units Whole Blood Glucose 116 H 70-110 MG/DL Sodium Level 134 L 136-145 mmol/L Potassium Level 3.2 L 3.5-5.1 mmol/L Chloride Level 98 L 101-111 mmol/L Carbon Dioxide Level 31 21-32 mmol/L Blood Urea Nitrogen 23 H 7-18 mg/dL Creatinine 1.4 H 0.5-1.3 mg/dL Glomerular Filtration Rate Calc 50 >90 mL/min Random Glucose 104 # 70-105 mg/dL Lactic Acid Level 1.5 0.8-2.5 mmol/L Total Calcium 7.8 L 8.5-10.1 mg/dL Phosphorus Level 2.6 2.5-4.9 mg/dL Magnesium Level 2.30 1.80-2.40 mg/dL Total Bilirubin 0.8 0.2-1.0 mg/dL Aspartate Amino Transf (AST/SGOT) 53 H 10-37 U/L Alanine Aminotransferase (ALT/SGPT) 32 12-78 U/L Alkaline Phosphatase 78 50-136 U/L Total Protein 6.0 6.0-8.3 g/dL Albumin 2.3 L 3.5-5.0 g/dL Troponin I High Sensitivity 3838 *H 4-75 ng/L Coagulation Labs: Test 05/10/24 23:16 Range/Units D-Dimer Quantitative (PE/DVT) 3278 *H 0-500 ng/mL Diagnostics / Radiology: [Copy/Paste Echos/Imaging Report here] Impression and Plan: [#CAD s/p Coronary artery bypass grafting x3 with left internal mammary artery to left anterior descending coronary artery, vein graft bypass to distal left anterior descending coronary artery and vein graft bypass to obtuse isaura nal/ramus - Insertion of intraaortic balloon pump via the right common femoral artery, good pulses -h/o GISSELLE in 2016 - metoprolol tartrate 12.5 mg bid -c/w asa 81 mg qd, atorvastatin 40 mg qhs, plavix 75 mg qd -2D echo showed mid range LVEF 40-45% #post op a-fib -could be due to hypokalemia, giving 40 meq now and BMP at 1 pm and started daily 20 meq -However, this AM K low, I have held lasix for today, pending CXR today. Will give 40 meq x1 today and recheck BMP around 1 pm. -amiodarone bolus given 05/11 Aneta Zaragoza MD ] ANETA ZARAGOZA MD May 12, 2024 07:31
--- NOTE | 2024-05-12 09:09 | HMCIMG ---
CHEST 1VW HISTORY: CHF COMPARISON: 05/11/2024 FINDINGS: A frontal projection of the chest was obtained. No acute pulmonary infiltrates is seen. Poststernotomy changes are seen. The heart is enlarged. Degenerative changes of the thoracolumbar spine are present. Prominent interstitial markings are seen. No evidence of aortic calcification is seen. IMPRESSION: 1. No acute pulmonary infiltrate is seen.
[2024-05-12] MEDS: PoTASSium chloRIDE 20MEQ ER 20 MEQ ERTAB PO ONE (09:41)
--- NOTE | 2024-05-12 11:28 | PN ---
[facility] PROGRESS NOTE Date Patient Seen: May 12, 2024 Time of Visit: 11:27 Supervising Physician: Lyle Navarrete MD Primary Care Physician: Non established- lives in [place]- self pay Outpatient Specialists: NA Inpatient Consults: Dr. Fabricio Greene, Dr. Augusto Zaragoza, Dr. Garcia PROBLEM LIST: Acute hypoxic respiratory failure postop as expected 2L Postop Paroxysmal AFib with RVR Lateral wall ST elevation TN Status post left heart cardiac catheterization on 05/03/[address] Marin in [facility] Multivessel coronary artery disease S/P CABG x3- CHATMAN to LAD, RSVG to distal LAD, RSVG to OM/ Ramus on 05/[address] Garcia Acute on chronic reduced EF HF- LVEF 40%- POA Metabolic alkalosis- resolved Acute coronary syndrome Chest pain related to ACS Acute kidney injury due to ATN from dehydration Hyperglycemia in the setting of T2DM H/O Coronary artery disease status post PCI stent remote, hypertension, hyperlipidemia, Diabetes mellitus type II INTERVAL HISTORY: 05/05/2024 Yesterday, Dr. Garcia met with the patient to discuss the potential benefits and risks of CABG surgery. Risks explained included los of limb, loss of life, bleeding, infection, stroke, and other complications. the patient demonstrated understanding of the risks and benefits but requested additional time to consider the surgery due to his advanced age. Dr Garcia believes that the patient would likely benefit from the surgery, given his physical strength despite his age, but expressed willingness to honor the patient's decision. Today, the patient is alert and oriented. He reported that he discussed the situation with his family and has decided to proceed with the surgery. Lab oratory results, WBC 5.2, Hemoglobin 15.0, Hematocrit 45.1, Platelets 132, Sodium 134, Potassium 3.6, BUN 27, Creatinine 1.3, GFR 54, Glucose 112, Troponin 6883. He has been weaned off of nitroglycerin drip. Continue heparin drip. Asa, statin, Echo with LVEF 40-45%. 05/06 patient underwent coronary artery bypass graft surgery x3 , chatman to LAD, RSVG to distal LAD, RSVG to OM/ ramus by Dr. Garcia. He remains intubated on SIMV 12/550/5/60%. His ABG is reviewed. He is going to be kept intubated overnight. Otherwise his cardiac index is 2.8 and cardiac output is 5.0. He remains on vasopressor with epinephrine drip and Levophed drip. He is on nitroglycerin drip as well. He is with mechanical circulatory support with intra-aortic balloon pump 1:1. Continue follow patient closely with hemodynamic post CABG care. Lab in the morning. Chest x-ray in the morning. 05/07 patient is very lethargic remains intubated on SIMV 4/550/5/40%. He has been weaned off the anxiolytic with the Precedex drip this morning. Continue to keep it off for now. Extubation has been requested per CV. Can do mechanics before extubation. Otherwise he remains with mechanical circulatory support 1:1 and on vasopressors with epinephrine drip at 0.04 mcg. Continue to wean down as tolerated. Cardiac output and cardiac index are unremarkable continue with the hemodynamic monitoring. Chest x-ray this morning with tip of balloon pump in the ICS six, recommend to advance it. Otherwise no pneumothorax. Chest tube are in place x2, output has been 400 cc. Urine output is 1.8 L. Balance is positive 1 L. Continue with current diuretic with Lasix. ABG this morning with pH 7.49 pCO2 is 37 PO2 is 109 this is metabolic alkalosis , recommend to start bicarb diuretic with Diamox if okay with surgery. Otherwise, continue to monitor closely. 05/08 patient is awake , mildly restless, still intubated and gesturing to want to be extubated. Otherwise his vital signs is with blood pressure 144/57 map 86 per invasive blood pressure monitoring, patient remains on mechanical circulatory support with intra-aortic balloon pump at 1:2. Chest x-ray this morning with tip of balloon pump at the ics 4, this is in good position. Lung is clear with scattered congestion. Output of the chest tube is 240 cc. Urine output is 3.5 L with balance-2.2 L. continue strict i/o. This morning with WBC 14 up from 10 hemoglobin is 10.4 down from 11.1. Platelet count is 63 this is down from 103. Consumption from MCS. Watch for bleeding. Chemistry creatinine is 1.4 this is up from 1.3. BUN is 20. Potassium is 4.2 bicarb is 26. ABG pH 7.45 pCO2 35 PO2 is 111. We did the mechanics and patient has good mechanics, is a good candidate for extubation if okay with the CV surgery. Patient has been weaned off of the epinephrine drip. Continue to monitor patient closely in ICU. 05/09 patient has been extubated yesterday he is awake alert and oriented following commands appropriately. Has not had good sleep overnight. Otherwise he is not in distress. He is complaining of hiccups. We can try Phenergan p.r.n.. Patient has passed gas. No BM otherwise. Continue with bowel regimen. Otherwise chest x-ray this morning with mild congestion in the right side. Patient has been using incentive spirometry at 1250 cc. Continue to use this every hour. Urine output is 2.7 L with balance-2.1 L. Continue diuretic. Chest tube output is 290 cc. No pneumothorax. Continue to monitor output closely. Otherwise lab this morning with hemoglobin stable at 9.9 WBC is down to 10 from 14. Platelet count is 51 down from 63. Creatinine is down to 1.3 from 1.4 with bicarb of 28 and potassium is 3.7. Magnesium is 1.7 and electrolyte replacement has been followed. Otherwise patient remains on mechanical circulatory support with intra-aortic balloon pump. Chest x-ray with tip in ICS four. This is in good position. Patient is on 1:3 augmentation. Plan for discontinuation of this device today. Continue ICU care for MCS care and weaning. Hopefully we can ambulate after MCS has been removed. 05/10 patient is awake alert and oriented x3 not in acute distress feeling much better today. He has his intra-aortic balloon pump removed yesterday. He has been weaned off of the vasopressor as well. This morning vital signs with blood pressure of 131/66 map of 87 respiratory rate is 20 pulse is 71 T-max is 98.8 and his oxygen is 96% on room air. With lab this morning WBC of 7.1 hemoglobin is 10.3 platelet count is up to 70 from 51. Sodium 135 potassium is 3.2 chloride is 99 bicarb is 26 creatinine is 1.3 this is similar to yesterday glucose 189. Otherwise he has chest tube, chest x-ray this morning with no pneumothorax, chest tube in place lung schneider is clear compared to yesterday. Chest tube output is 180 cc. Urine output is 1.7 L, balance -650 cc. Patient had bowel movement x1. Overall patient is doing really well. Continue current post CABG care treatment. Continue using incentive spirometry which he has been using up to 750 cc. Encouraged the patient's family to help with this effort. Continue with physical therapy. 05/11-patient is awake alert and oriented x3. Overnight he was brought back to the ICU after an episode of a coughing spell, AFib with RVR and chest pain. He was started on nitroglycerin drip at 5 micrograms/minute and amiodarone drip per protocol. He was also given a bolus 150 mg of amiodarone and he is now converted back to sinus rhythm rate in the 80s, hemodynamically stable blood pressure 105/62 respiratory rate of 20 saturating 98% at 2 L via nasal cannula. Patient has been afebrile with a T-max of 99.1 F and T low of 97.7. Urine output not accurate in the last 24 hours we will add daily weights. Chest tubes removed yesterday. This morning chest x-ray was trachea midline, with increased pulmonary vascular congestion, no apparent pneumothorax, no pleural effusion noted. Post sternotomy changes. Pending official read from Radiology. On laboratory WBCs are 7.3 H&H are stable 10 over thirty, platelet count is 730293 improved from yesterday. Chemistries sodium 134 potassium is 3.3 corrected per protocol chloride 98 CO2 28, BUN 27 creatinine 1.3 GFR 54 similar to yesterday. Magnesium 1.9 troponins trending down as expected post CABG. 05/12-patient is awake alert oriented x3. Downgraded to PCCU yesterday amiodarone drip has been stopped and converted to p.o. heart rate in the 80s today hemodynamically stable saturating 96% on room air with respiratory rate of 18 unlabored afebrile. WBCs 7.6 H&H 9.5/28.3 with a platelet count of 147108 sodium 134 potassium 3.2 covered per protocol CO2 31 BUN 23 creatinine 1.4 with a GFR of 50 slightly magnesium 1.5. Patient down 2 kg three days ago. Chest tube has been removed. On chest x-ray with no acute pulmonary infiltrates are seen decreased pulmonary vascular congestion. He did have an episode of vertigo meclizine 25 mg p.o. b.i.d p.r.n. ordered and Zofran already p.r.n. for nausea. Otherwise patient improving, continues with physical therapy. REVIEW OF SYSTEMS: Constitutional: No appetite loss, No fevers, chills , No night sweats, No weakness, fatigue Eye: No vision change, No redness, pain or discharge ENT: No hearing loss, ear pain or discharge, No nose bleeds, No sore throat, Neck: No swelling. pain or stiffness Respiratory: No cough, shortness of breath, wheezing Cardiovascular: No chest pain No palpitations or syncope. Gastrointestinal: No abdominal pain, No nausea, vomiting, No diarrhea, constipation Genitourinary: No painful urination, No blood in urine, No urinary incontinence, No frequency or urgency Musculoskeletal: No joint pain, muscle pain, swelling or stiffness Neurological: No numbness, tingling, No weakness, tremors or seizures yes to vertigo Psychiatric: : No depression, No anxiety, No sleep disturbance, No Memory silva nges Lymphatic: No easy bruising, No bleeding tendencies , No swollen lymph nodes PHYSICAL EXAM: GENERAL: AAOx3, follows command HEENT: EOMI, Sclera non icteric, moist mucosa NECK: Supple, no JVD, trachea midline LUNGS: Clear breath sounds bilaterally. No wheezes HEART: Regular rate and rhythm. Normal S1 and S2, without murmurs ABD: Abdomen soft, nontender. Bowel sounds present EXT: No clubbing cyanosis or edema NEURO: Moving all extremities equally. no unilateral weakness. Vital Signs (last 8hr) Date Time Temp Pulse Resp B/P (MAP) Pulse Ox O2 Delivery O2 Flow Rate FiO2 05/12/24 08:30 98.8 70 18 103/57 98 Room Air 05/12/24 06:43 88 20 N/A Room Air 21 05/12/24 03:40 98.4 83 20 111/48 94 Nasal Cannula 2.0 LABS: Hematology Labs: Test 05/12/24 03:22 Range/Units White Blood Count 7.6 4.8-10.8 K/uL Red Blood Count 3.06 L 4.50-6.20 MIL/uL Hemoglobin 9.5 L 14.0-18.0 g/dL Hematocrit 28.3 L 42-54 % Mean Corpuscular Volume 92.5 79-99 fL Mean Corpuscular Hemoglobin 31.0 27.0-33.0 pg Mean Corpuscular Hemoglobin Concent 33.6 32.0-36.0 g/dL Red Cell Distribution Width 12.5 11.0-15.5 % Platelet Count 132 130-400 K/uL Mean Platelet Volume 10.9 H 7.5-10.5 fL Immature Granulocyte % (Auto) 1.1 H 0-1 % Neutrophils (%) (Auto) 79.3 H 40.0-77.0 % Lymphocytes (%) (Auto) 8.5 L 21.0-51.0 % Monocytes (%) (Auto) 10.3 3.0-13.0 % Eosinophils (%) (Auto) 0.5 0.0-8.0 % Basophils (%) (Auto) 0.3 0.0-5.0 % Neutrophils # (Auto) 6.0 1.8-7.7 K/uL Lymphocytes # (Auto) 0.6 L 1.0-4.8 K/uL Monocytes # (Auto) 0.8 0.1-1.0 K/uL Eosinophils # (Auto) 0.04 0.00-0.70 K/uL Basophils # (Auto) 0.02 0.00-0.20 K/uL Absolute Immature Granulocyte (auto 0.08 0-1 K/uL Nucleated Red Blood Cells 0.0 0.0-0.19 % White Cell Morphology Comment See comments Chemistry Labs: Test 05/12/24 06:21 05/12/24 03:22 05/10/24 23:16 Range/Units Whole Blood Glucose 116 H 70-110 MG/DL Sodium Level 134 L 136-145 mmol/L Potassium Level 3.2 L 3.5-5.1 mmol/L Chloride Level 98 L 101-111 mmol/L Carbon Dioxide Level 31 21-32 mmol/L Blood Urea Nitrogen 23 H 7-18 mg/dL Creatinine 1.4 H 0.5-1.3 mg/dL Glomerular Filtration Rate Calc 50 >90 mL/min Random Glucose 104 # 70-105 mg/dL Lactic Acid Level 1.5 0.8-2.5 mmol/L Total Calcium 7.8 L 8.5-10.1 mg/dL Phosphorus Level 2.6 2.5-4.9 mg/dL Magnesium Level 2.30 1.80-2.40 mg/dL Total Bilirubin 0.8 0.2-1.0 mg/dL Aspartate Amino Transf (AST/SGOT) 53 H 10-37 U/L Alanine Aminotransferase (ALT/SGPT) 32 12-78 U/L Alkaline Phosphatase 78 50-136 U/L Total Protein 6.0 6.0-8.3 g/dL Albumin 2.3 L 3.5-5.0 g/dL Troponin I High Sensitivity 3838 *H 4-75 ng/L Coagulation Labs: Test 05/10/24 23:16 Range/Units D-Dimer Quantitative (PE/DVT) 3278 *H 0-500 ng/mL DIAGNOSTICS / RADIOLOGY RESULTS: [ ] Signed PATIENT: ERICA AMAYA MR#: [id number] : 1940 SEX: M AGE: 83 LOCATION: 2AH ORDER 8 STATUS: ADM IN REPORT#: [id number] SERVICE 7 REASON: chf ORDERING PHYSICIAN: FAZAL ZARAGOZA MD PROCEDURE: CXR1VW - CHEST 1VW CHEST 1VW HISTORY: CHF COMPARISON: 05/11/2024 FINDINGS: A frontal projection of the chest was obtained. No acute pulmonary infiltrates is seen. Poststernotomy changes are seen. The heart is enlarged. Degenerative changes of the thoracolumbar spine are present. Prominent interstitial markings are seen. No evidence of aortic calcification is seen. IMPRESSION: 1. No acute pulmonary infiltrate is seen. DICTATED BY: SERENITY HOANG MD DATE: 05/12/24905 ELECTRONICALLY SIGNED BY: SERENITY HOANG MD DATE: 05/12/[address] surgeon recommendations Follow cardiology recommendations Amiodarone p.o. per Cardiology Multimodal pain management Monitoring H&H Chest x-ray in the morning Transfuse if absolutely necessary to keep hemoglobin above 8 Maintain O2 sats greater than 92% Incentive spirometry Glycemic control with goal of 80-180 Referral for cardiac rehabilitation PT to eval and treat. CBC BMP, magnesium, phosphorus in the morning COVID-19 and influenza swab negative Daily weight Lantus 10 units subQ b.i.d. ISS NEURO: Minimize central acting medications as possible. Maintain fall precautions, adequate lighting during the day PULMONARY: Supplemental 02 as needed. Maintain aspiration precautions at all times CARDIOVASCULAR: Follow hemodynamics. Vital signs per facility protocol GI & NUTRITION: Continue with nutritional support. Continue stool softeners and laxatives as needed. KIDNEYS & ELECTROLYTES: Strict monitoring of intake, output and overall fluid balance. Avoid nephrotoxic medications to the extent possible. Medications to be dosed according to renal function. Monitor electrolytes and replace as needed ENDOCRINE: Maintain blood glucose between 100-180 at all times. Hypoglycemia protocol in place INFECTIOUS DISEASE: Trend temperature, WBC and procalcitonin level Follow cultures, deescalate antibiotics as soon as possible. Panculture if new onset fever ONCOLOGY/HEMATOLOGY/COAGULATION: Monitor for s/s of bleeding Monitor hemoglobin, coagulation studies as needed SKIN: Pressure ulcer prevention per facility protocol Specialty mattress ORTHO/REHAB: Continue PT/OT Prophylaxis: Continue GI and DVT prophylaxis Code Status: Full Resuscitation Disposition: TBD Other: Total patient care time exceeds 35 minutes excluding all procedures. PHAM [employer] May 12, 2024 11:28
[2024-05-12] MEDS: mecliZINE HCL 25 MG TABLET ONE (14:38)
[2024-05-12] MEDS: ondanSETRON 4MG INJ IVP ONE (14:43)
[2024-05-12] MEDS ORDERED: mecliZINE HCL 25 MG TABLET PO PRN (15:00)
[2024-05-12 15:10] LABS: CREATININE 1.6 mg/dL (0.5-1.3); POTASSIUM 3.7 mmol/L (3.5-5.1)
[2024-05-13] VITALS (8 sets, daily range): BP systolic 115–134; BP diastolic 56–88; PULSE 62–108; RESP 18–20; TEMP 97.4–98.8; O2SAT 96–98
[2024-05-13 03:50] LABS: BASOPHILS # (AUTO) 0.03 K/uL (0.00-0.20); BASOPHILS % (AUTO) 0.3 % (0.0-5.0); EOSINOPHILS # (AUTO) 0.06 K/uL (0.00-0.70); EOSINOPHILS % (AUTO) 0.6 % (0.0-8.0); IMMATURE GRANULOCYTE ABSOLUTE 0.09 K/uL (0-1); LYMPHOCYTES # (AUTO) 0.5 K/uL (1.0-4.8); LYMPHOCYTES % (AUTO) 5.7 % (21.0-51.0); MEAN CORPUSCULAR HEMOGLOBIN 30.8 pg (27.0-33.0); MEAN CORPUSCULAR HGB CONC 34.1 g/dL (32.0-36.0); MEAN CORPUSCULAR VOLUME 90.3 fL (79-99); MONOCYTES # (AUTO) 0.7 K/uL (0.1-1.0); MONOCYTES % (AUTO) 7.7 % (3.0-13.0); NEUTROPHILS # (AUTO) 7.9 K/uL (1.8-7.7); NEUTROPHILS % (AUTO) 84.7 % (40.0-77.0); PLATELET COUNT (AUTO) 203 K/uL (130-400); RED BLOOD CELL COUNT(AUTO) 2.99 MIL/uL (4.50-6.20); WHITE BLOOD COUNT (AUTO) 9.4 K/uL (4.8-10.8)
[2024-05-13 04:05] LABS: ALBUMIN 2.2 g/dL (3.5-5.0); BILIRUBIN,TOTAL 0.7 mg/dL (0.2-1.0); CREATININE 1.5 mg/dL (0.5-1.3); PHOSPHORUS 2.1 mg/dL (2.5-4.9); POTASSIUM 3.5 mmol/L (3.5-5.1); TOTAL PROTEIN, SERUM 5.7 g/dL (6.0-8.3)
--- NOTE | 2024-05-13 07:27 | PN ---
[facility] CARDIOLOGY PROGRESS NOTE Date Patient Seen: May 13, 2024 Time of Visit: 07:23 Interval History: [Tele overnight showed a-fib lasted 12 minutes converted to NSR Physical Examination: GENERAL: [A&Ox3.] HEAD: [Normal with no signs of head trauma.] EYES: [PERRLA, EOMI, conjunctiva and sclera normal.] ENT: [Hearing grossly intact, normal oropharynx.] NECK: [Supple without JVD. There is no tenderness, lymphadenopathy, or masses. No thyromegaly. Normal carotid upstrokes without bruits.] LUNGS: [CTA] HEART: [Normal rate and rhythm. Normal S1 and S2 without mumurs, gallop or rub.] VASC: [Peripheral pulses +2 bilaterally.] ABD: [Bowel sounds normal, soft, nontender, no masses, no organomegaly. No audible bruits.] : [Not examined] SKIN: [No rashes or lesions noted.] NEURO: [no deficits] Laboratory: [ ] Hematology Labs: Test 05/13/24 03:33 05/12/24 03:22 Range/Units White Blood Count 9.4 4.8-10.8 K/uL Red Blood Count 2.99 L 4.50-6.20 MIL/uL Hemoglobin 9.2 L 14.0-18.0 g/dL Hematocrit 27.0 L 42-54 % Mean Corpuscular Volume 90.3 79-99 fL Mean Corpuscular Hemoglobin 30.8 27.0-33.0 pg Mean Corpuscular Hemoglobin Concent 34.1 32.0-36.0 g/dL Red Cell Distribution Width 13.0 11.0-15.5 % Platelet Count 203 # 130-400 K/uL Mean Platelet Volume 10.0 7.5-10.5 fL Immature Granulocyte % (Auto) 1.0 0-1 % Neutrophils (%) (Auto) 84.7 H 40.0-77.0 % Lymphocytes (%) (Auto) 5.7 L 21.0-51.0 % Monocytes (%) (Auto) 7.7 3.0-13.0 % Eosinophils (%) (Auto) 0.6 0.0-8.0 % Basophils (%) (Auto) 0.3 0.0-5.0 % Neutrophils # (Auto) 7.9 H 1.8-7.7 K/uL Lymphocytes # (Auto) 0.5 L 1.0-4.8 K/uL Monocytes # (Auto) 0.7 0.1-1.0 K/uL Eosinophils # (Auto) 0.06 0.00-0.70 K/uL Basophils # (Auto) 0.03 0.00-0.20 K/uL Absolute Immature Granulocyte (auto 0.09 0-1 K/uL Nucleated Red Blood Cells 0.0 0.0-0.19 % White Cell Morphology Comment See comments Chemistry Labs: Test 05/13/24 05:50 05/13/24 03:33 05/12/24 03:22 Range/Units Whole Blood Glucose 107 # 70-110 MG/DL Sodium Level 135 L 136-145 mmol/L Potassium Level 3.5 3.5-5.1 mmol/L Chloride Level 100 L 101-111 mmol/L Carbon Dioxide Level 31 21-32 mmol/L Blood Urea Nitrogen 25 H 7-18 mg/dL Creatinine 1.5 H 0.5-1.3 mg/dL Glomerular Filtration Rate Calc 46 >90 mL/min Random Glucose 114 #H 70-105 mg/dL Lactic Acid Level 1.8 0.8-2.5 mmol/L Total Calcium 7.6 L 8.5-10.1 mg/dL Phosphorus Level 2.1 L 2.5-4.9 mg/dL Total Bilirubin 0.7 0.2-1.0 mg/dL Aspartate Amino Transf (AST/SGOT) 67 H 10-37 U/L Alanine Aminotransferase (ALT/SGPT) 46 12-78 U/L Alkaline Phosphatase 104 50-136 U/L Total Protein 5.7 L 6.0-8.3 g/dL Albumin 2.2 L 3.5-5.0 g/dL Magnesium Level 2.30 1.80-2.40 mg/dL Diagnostics / Radiology: [Copy/Paste Echos/Imaging Report here] Impression and Plan: [#CAD s/p Coronary artery bypass grafting x3 with left internal mammary artery to left anterior descending coronary artery, vein graft bypass to distal left anterior descending coronary artery and vein graft bypass to obtuse marginal /ramus - Insertion of intraaortic balloon pump via the right common femoral artery, good pulses -h/o GISSELLE in 2017 - metoprolol tartrate 12.5 mg bid -c/w asa 81 mg qd, atorvastatin 40 mg qhs, plavix 75 mg qd -2D echo showed mid range LVEF 40-45% #post op a-fib -could be due to hypokalemia, c/w K daily 20 meq -pending CXR today. -amiodarone bolus given 05/11 -05/13 547 am tele showed a-fib lasted 12 minutes converted to NSR -05/13 started po amidarone 200 mg bid Aneta Zaragoza MD ] ANETA ZARAGOZA MD May 13, 2024 07:27
[2024-05-13] MEDS ORDERED: traMADol HCL 50 MG TABLET PO PRN (07:30)
[2024-05-13] MEDS: traMADol HCL 50 MG TABLET PO PRN (07:41)
[2024-05-13] MEDS: BENZOCAINE/MENTH/CETYLPYRD CL 1 EACH LOZENGE MM PRN (08:25)
[2024-05-13] MEDS: AMIOdarone 200 MG TABLET PO SCH (08:25)
--- NOTE | 2024-05-13 09:19 | EKG ---
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 : 1940 Requested By: KARYN BOYKIN Order Number: [id number] Reading MD: Ricardo Siddiqui Measurements Intervals [place] Rate: 89 P: 42 TN: 163 QRS: -58 QRSD: 124 T: 88 QT: 477 QTc: 582 Interpretive Statements Sinus rhythm RBBB and LAFB Lateral infarct, acute Prolonged QT interval Compared to ECG 05/10/2024 22:07:07 Prolonged QT interval now present Ventricular premature complex(es) no longer present Intraventricular conduction delay no longer present ST (T wave) deviation no longer present Myocardial infarct finding still present Electronically Signed On 05-13-2024 18:35:45 [employer] by Ricardo Siddiqui Please click the below link to view image of tracing.
--- NOTE | 2024-05-13 09:31 | HMCIMG ---
CHEST 1VW HISTORY: CHF COMPARISON: 05/12/2024 FINDINGS: A frontal projection of the chest was obtained. No acute pulmonary infiltrates is seen. Poststernotomy changes are seen. The heart is enlarged. Degenerative changes of the thoracolumbar spine are present. Prominent interstitial markings are seen. No evidence of aortic calcification is seen. IMPRESSION: 1. No acute pulmonary infiltrate is seen.
--- NOTE | 2024-05-13 11:08 | PN ---
[facility] PROGRESS NOTE Date Patient Seen: May 13, 2024 Time of Visit: 11:07 Supervising Physician: Carlos Snyder MD Primary Care Physician: Non established- lives in [place]- self pay Outpatient Specialists: NA Inpatient Consults: Dr. Fabricio Greene, Dr. Augusto Zaragoza, Dr. Garcia PROBLEM LIST: Acute hypoxic respiratory failure postop as expected 2L, resolved Postop Paroxysmal AFib with RVR Lateral wall ST elevation GA Status post left heart cardiac catheterization on 05/03/[address] Marin in [facility] Multivessel coronary artery disease S/P CABG x3- CHATMAN to LAD, RSVG to distal LAD, RSVG to OM/ Ramus on 05/[address] Garcia Acute on chronic reduced EF HF- LVEF 40%- POA Metabolic alkalosis- resolved Acute coronary syndrome Chest pain related to ACS Acute kidney injury due to ATN from dehydration Hyperglycemia in the setting of T2DM H/O Coronary artery disease status post PCI stent remote, hypertension, hyperlipidemia, Diabetes mellitus type II INTERVAL HISTORY: 05/05/2024 Yesterday, Dr. Garcia met with the patient to discuss the potential benefits and risks of CABG surgery. Risks explained included los of limb, loss of life, bleeding, infection, stroke, and other complications. the patient demonstrated understanding of the risks and benefits but requested additional time to consider the surgery due to his advanced age. Dr Garcia believes that the patient would likely benefit from the surgery, given his physical strength despite his age, but expressed willingness to honor the patient's decision. Today, the patient is alert and oriented. He reported that he discussed the situation with his family and has decided to proceed with the surgery. Laboratory results, WBC 5.2, Hemoglobin 15.0, Hematocrit 45.1, Platelets 132, Sodium 134, Potassium 3.6, BUN 27, Creatinine 1.3, GFR 54, Glucose 112, Troponin 6883. He has been weaned off of nitroglycerin drip. Continue heparin drip. Asa, statin, Echo with LVEF 40-45%. 05/06 patient underwent coronary artery bypass graft surgery x3 , chatman to LAD, RSVG to distal LAD, RSVG to OM/ ramus by Dr. Garcia. He remains intubated on SIMV 12/550/5/60%. His ABG is reviewed. He is going to be kept intubated ov ernight. Otherwise his cardiac index is 2.8 and cardiac output is 5.0. He remains on vasopressor with epinephrine drip and Levophed drip. He is on nitroglycerin drip as well. He is with mechanical circulatory support with intra-aortic balloon pump 1:1. Continue follow patient closely with hemodynamic post CABG care. Lab in the morning. Chest x-ray in the morning. 05/07 patient is very lethargic remains intubated on SIMV 4/550/5/40%. He has been weaned off the anxiolytic with the Precedex drip this morning. Continue to keep it off for now. Extubation has been requested per CV. Can do mechanics before extubation. Otherwise he remains with mechanical circulatory support 1:1 and on vasopressors with epinephrine drip at 0.04 mcg. Continue to wean down as tolerated. Cardiac output and cardiac index are unremarkable continue with the hemodynamic monitoring. Chest x-ray this morning with tip of balloon pump in the ICS six, recommend to advance it. Otherwise no pneumothorax. Chest tube are in place x2, output has been 400 cc. Urine output is 1.8 L. Balance is positive 1 L. Continue with current diuretic with Lasix. ABG this morning with pH 7.49 pCO2 is 37 PO2 is 109 this is metabolic alkalosis , recommend to start bicarb diuretic with Diamox if okay with surgery. Otherwise, continue to monitor closely. 05/08 patient is awake , mildly restless, still intubated and gesturing to want to be extubated. Otherwise his vital signs is with blood pressure 144/57 map 86 per invasive blood pressure monitoring, patient remains on mechanical circulatory support with intra-aortic balloon pump at 1:2. Chest x-ray this morning with tip of balloon pump at the ics 4, this is in good position. Lung is clear with scattered congestion. Output of the chest tube is 240 cc. Urine output is 3.5 L with balance-2.2 L. continue strict i/o. This morning with WBC 14 up from 10 hemoglobin is 10.4 down from 11.1. Platelet count is 63 this is down from 103. Consumption from MCS. Watch for bleeding. Chemistry creatinine is 1.4 this is up from 1.3. BUN is 20. Potassium is 4.2 bicarb is 26. ABG pH 7.45 pCO2 35 PO2 is 111. We did the mechanics and patient has good mechanics, is a good candidate for extubation if okay with the CV surgery. Patient has been weaned off of the epinephrine drip. Continue to monitor patient closely in ICU. 05/09 patient has been extubated yesterday he is awake alert and oriented following commands appropriately. Has not had good sleep overnight. Otherwise he is not in distress. He is complaining of hiccups. We can try Phenergan p.r.n.. Patient has passed gas. No BM otherwise. Continue with bowel regimen. Otherwise chest x-ray this morning with mild congestion in the right side. Patient has been using incentive spirometry at 1250 cc. Continue to use this every hour. Urine output is 2.7 L with balance-2.1 L. Continue diuretic. Chest tube output is 290 cc. No pneumothorax. Continue to monitor output closely. Otherwise lab this morning with hemoglobin stable at 9.9 WBC is down to 10 from 14. Platelet count is 51 down from 63. Creatinine is down to 1.3 from 1.4 with bicarb of 28 and potassium is 3.7. Magnesium is 1.7 and electrolyte replacement has been followed. Otherwise patient remains on mechanical circulatory support with intra-aortic balloon pump. Chest x-ray with tip in ICS four. This is in good position. Patient is on 1:3 augmentation. Plan for discontinuation of this device today. Continue ICU care for MCS care and weaning. Hopefully we can ambulate after MCS has been removed. 05/10 patient is awake alert and oriented x3 not in acute distress feeling much better today. He has his intra-aortic balloon pump removed yesterday. He has been weaned off of the vasopressor as well. This morning vital signs with blood pressure of 131/66 map of 87 respiratory rate is 20 pulse is 71 T-max is 98.8 and his oxygen is 96% on room air. With lab this morning WBC of 7.1 hemoglobin is 10.3 platelet count is up to 70 from 51. Sodium 135 potassium is 3.2 chloride is 99 bicarb is 26 creatinine is 1.3 this is similar to yesterday glucose 189. Otherwise he has chest tube, chest x-ray this morning with no pneumothorax, chest tube in place lung schneider is clear compared to yesterday. Chest tube output is 180 cc. Urine output is 1.7 L, balance -650 cc. Patient had bowel movement x1. Overall patient is doing really well. Continue current post CABG care treatment. Continue using incentive spirometry which he has been using up to 750 cc. Encouraged the patient's family to help with this effort. Continue with physical therapy. 05/11-patient is awake alert and oriented x3. Overnight he was brought back to the ICU after an episode of a coughing spell, AFib with RVR and chest pain. He was started on nitroglycerin drip at 5 micrograms/minute and amiodarone drip per protocol. He was also given a bolus 150 mg of amiodarone and he is now converted back to sinus rhythm rate in the 80s, hemodynamically stable blood pressure 105/62 respiratory rate of 20 saturating 98% at 2 L via nasal cannula. Patient has been afebrile with a T-max of 99.1 F and T low of 97.7. Urine output not accurate in the last 24 hours we will add daily weights. Chest tubes removed yesterday. This morning chest x-ray was trachea midline, with increased pulmonary vascular congestion, no apparent pneumothorax, no pleural effusion noted. Post sternotomy changes. Pending official read from Radiology. On la boratory WBCs are 7.3 H&H are stable 10 over thirty, platelet count is [id number] improved from yesterday. Chemistries sodium 134 potassium is 3.3 corrected per protocol chloride 98 CO2 28, BUN 27 creatinine 1.3 GFR 54 similar to yesterday. Magnesium 1.9 troponins trending down as expected post CABG. 05/12-patient is awake alert oriented x3. Downgraded to PCCU yesterday amiodarone drip has been stopped and converted to p.o. heart rate in the 80s today hemodynamically stable saturating 96% on room air with respiratory rate of 18 unlabored afebrile. WBCs 7.6 H&H 9.5/28.3 with a platelet count of [id number] sodium 134 potassium 3.2 covered per protocol CO2 31 BUN 23 creatinine 1.4 with a GFR of 50 slightly magnesium 1.5. Patient down 2 kg three days ago. Chest tu be has been removed. On chest x-ray with no acute pulmonary infiltrates are seen decreased pulmonary vascular congestion. He did have an episode of vertigo meclizine 25 mg p.o. b.i.d p.r.n. ordered and Zofran already p.r.n. for nausea. Otherwise patient improving, continues with physical therapy. 05/13- pt awake alert and oriented x 3. Pt had a tramadol 100mg this morning and became drowsy due to did not sleep during the night. We will hold off on tramadol 100mg to avoid drowsiness and instead use tylenol only for pain. if moderate to severe pain use tramadol 50mg q6hrs prn. pt and daughter in agreement. He is pulling 1.2 L on IS and Kineta working with it. He will be going home once cleared for discharge by CV surgery. Pt to continue PT. REVIEW OF SYSTEMS: Constitutional: No appetite loss, No fevers, chills , No night sweats, No weakness, fatigue Eye: No vision change, No redness, pain or discharge ENT: No hearing loss, ear pain or discharge, No nose bleeds, No sore throat, Neck: No swelling. pain or stiffness Respiratory: No cough, shortness of breath, wheezing Cardiovascular: No chest pain No palpitations or syncope. Gastrointestinal: No abdominal pain, No nausea, vomiting, No diarrhea, constipation Genitourinary: No painful urination, No blood in urine, No urinary incontinence, No frequency or urgency Musculoskeletal: No joint pain, muscle pain, swelling or stiffness Neurological: No numbness, tingling, No weakness, tremors or seizures yes to vertigo Psychiatric: : No depression, No anxiety, No sleep disturbance, No Memory changes Lymphatic: No easy bruising, No bleeding tendencies , No swollen lymph nodes PHYSICAL EXAM: GENERAL: AAOx3, follows command HEENT: EOMI, Sclera non icteric, moist mucosa NECK: Supple, no JVD, trachea midline LUNGS: Clear breath sounds bilaterally. No wheezes HEART: Regular rate and rhythm. Normal S1 and S2, without murmurs ABD: Abdomen soft, nontender. Bowel sounds present EXT: No clubbing cyanosis or edema NEURO: Moving all extremities equally. no unilateral weakness. Vital Signs (last 8hr) Date Time Temp Pulse Resp B/P (MAP) Pulse Ox O2 Delivery O2 Flow Rate FiO2 05/13/24 10:43 96 Room Air* 0 21 05/13/24 08:27 97.3 108 18 131/88 98 Room Air 05/13/24 03:40 98.2 84 20 125/66 95 Room Air LABS: Hematology Labs: Test 05/13/24 03:33 05/12/24 03:22 Range/Units White Blood Count 9.4 4.8-10.8 K/uL Red Blood Count 2.99 L 4.50-6.20 MIL/uL Hemoglobin 9.2 L 14.0-18.0 g/dL Hematocrit 27.0 L 42-54 % Mean Corpuscular Volume 90.3 79-99 fL Mean Corpuscular Hemoglobin 30.8 27.0-33.0 pg Mean Corpuscular Hemoglobin Concent 34.1 32.0-36.0 g/dL Red Cell Distribution Width 13.0 11.0-15.5 % Platelet Count 203 # 130-400 K/uL Mean Platelet Volume 10.0 7.5-10.5 fL Immature Granulocyte % (Auto) 1.0 0-1 % Neutrophils (%) (Auto) 84.7 H 40.0-77.0 % Lymphocytes (%) (Auto) 5.7 L 21.0-51.0 % Monocytes (%) (Auto) 7.7 3.0-13.0 % Eosinophils (%) (Auto) 0.6 0.0-8.0 % Basophils (%) (Auto) 0.3 0.0-5.0 % Neutrophils # (Auto) 7.9 H 1.8-7.7 K/uL Lymphocytes # (Auto) 0.5 L 1.0-4.8 K/uL Monocytes # (Auto) 0.7 0.1-1.0 K/uL Eosinophils # (Auto) 0.06 0.00-0.70 K/uL Basophils # (Auto) 0.03 0.00-0.20 K/uL Absolute Immature Granulocyte (auto 0.09 0-1 K/uL Nucleated Red Blood Cells 0.0 0.0-0.19 % White Cell Morphology Comment See comments Chemistry Labs: Test 05/13/24 05:50 05/13/24 03:33 05/12/24 03:22 Range/Units Whole Blood Glucose 107 # 70-110 MG/DL Sodium Level 135 L 136-145 mmol/L Potassium Level 3.5 3.5-5.1 mmol/L Chloride Level 100 L 101-111 mmol/L Carbon Dioxide Level 31 21-32 mmol/L Blood Urea Nitrogen 25 H 7-18 mg/dL Creatinine 1.5 H 0.5-1.3 mg/dL Glomerular Filtration Rate Calc 46 >90 mL/min Random Glucose 114 #H 70-105 mg/dL Lactic Acid Level 1.8 0.8-2.5 mmol/L Total Calcium 7.6 L 8.5-10.1 mg/dL Phosphorus Level 2.1 L 2.5-4.9 mg/dL Total Bilirubin 0.7 0.2-1.0 mg/dL Aspartate Amino Transf (AST/SGOT) 67 H 10-37 U/L Alanine Aminotransferase (ALT/SGPT) 46 12-78 U/L Alkaline Phosphatase 104 50-136 U/L Total Protein 5.7 L 6.0-8.3 g/dL Albumin 2.2 L 3.5-5.0 g/dL Magnesium Level 2.30 1.80-2.40 mg/dL DIAGNOSTICS / RADIOLOGY RESULTS: IMAGING REPORT Signed PATIENT: ERICA AMAYA MR#: [id number] : 1940 SEX: M AGE: 83 LOCATION: [facility] ORDER 2 STATUS: ADM IN REPORT#: [id number] SERVICE 2 REASON: chf ORDERING PHYSICIAN: FAZAL ZARAGOZA MD PROCEDURE: CXR1VW - CHEST 1VW CHEST 1VW HISTORY: CHF COMPARISON: 05/12/2024 FINDINGS: A frontal projection of the chest was obtained. No acute pulmonary infiltrates is seen. Poststernotomy changes are seen. The heart is enlarged. Degenerative changes of the thoracolumbar spine are present. Prominent interstitial markings are seen. No evidence of aortic calcification is seen. IMPRESSION: 1. No acute pulmonary infiltrate is seen. DICTATED BY: SERENITY HOANG MD DATE: 05/13/24926 ELECTRONICALLY SIGNED BY: SERENITY HOANG MD DATE: 05/13/[address] surgeon recommendations Follow cardiology recommendations Amiodarone p.o. per Cardiology Multimodal pain management Monitoring H&H Chest x-ray in the morning Transfuse if absolutely necessary to keep hemoglobin above 8 Maintain O2 sats greater than 92% Incentive spirometry Glycemic control with goal of 80-180 Referral for cardiac rehabilitation PT to eval and treat. CBC BMP, magnesium, phosphorus in the morning COVID-19 and influenza swab negative Daily weight Lantus 10 units subQ b.i.d. ISS NEURO: Minimize central acting medications as possible. Maintain fall precautions, adequate lighting during the day PULMONARY: Supplemental 02 as needed. Maintain aspiration precautions at all times CARDIOVASCULAR: Follow hemodynamics. Vital signs per facility protocol GI & NUTRITION: Continue with nutritional support. Continue stool softeners and laxatives as needed. KIDNEYS & ELECTROLYTES: Strict monitoring of intake, output and overall fluid balance. Avoid nephrotoxic medications to the extent possible. Medications to be dosed according to renal function. Monitor electrolytes and replace as needed ENDOCRINE: Maintain blood glucose between 100-180 at all times. Hypoglycemia protocol in place INFECTIOUS DISEASE: Trend temperature, WBC and procalcitonin level Follow cultures, deescalate antibiotics as soon as possible. Panculture if new onset fever ONCOLOGY/HEMATOLOGY/COAGULATION: Monitor for s/s of bleeding Monitor hemoglobin, coagulation studies as needed SKIN: Pressure ulcer prevention per facility protocol Specialty mattress ORTHO/REHAB: Continue PT/OT Prophylaxis: Continue GI and DVT prophylaxis Code Status: Full Resuscitation Disposition: TBD Other: Total patient care time exceeds 35 minutes excluding all procedures. PHAM ELIZONDO [facility] May 13, 2024 11:08
[2024-05-13] MEDS: PoTASSium chl 10% ELIXIR 20MEQ 20 MEQ/15 ML UDCUP PO PRN (11:56)
[2024-05-14] VITALS (8 sets, daily range): BP systolic 117–140; BP diastolic 58–75; PULSE 73–94; RESP 16–18; TEMP 97.2–98.8; O2SAT 96–98
[2024-05-14 04:18] LABS: BASOPHILS # (AUTO) 0.01 K/uL (0.00-0.20); BASOPHILS % (AUTO) 0.1 % (0.0-5.0); EOSINOPHILS # (AUTO) 0.05 K/uL (0.00-0.70); EOSINOPHILS % (AUTO) 0.6 % (0.0-8.0); HEMATOCRIT 27.7 % (42-54); LYMPHOCYTES # (AUTO) 0.6 K/uL (1.0-4.8); LYMPHOCYTES % (AUTO) 6.7 % (21.0-51.0); MEAN CORPUSCULAR HEMOGLOBIN 30.5 pg (27.0-33.0); MEAN CORPUSCULAR HGB CONC 32.9 g/dL (32.0-36.0); MONOCYTES # (AUTO) 0.7 K/uL (0.1-1.0); MONOCYTES % (AUTO) 8.7 % (3.0-13.0); NEUTROPHILS # (AUTO) 6.9 K/uL (1.8-7.7); NEUTROPHILS % (AUTO) 82.7 % (40.0-77.0); PLATELET COUNT (AUTO) 258 K/uL (130-400); RED BLOOD CELL COUNT(AUTO) 2.98 MIL/uL (4.50-6.20); RED CELL DISTRIBUTION WIDTH 13.5 % (11.0-15.5); WHITE BLOOD COUNT (AUTO) 8.4 K/uL (4.8-10.8)
[2024-05-14 04:54] LABS: BILIRUBIN,TOTAL 0.6 mg/dL (0.2-1.0); CREATININE 1.2 mg/dL (0.5-1.3); PHOSPHORUS 2.5 mg/dL (2.5-4.9); POTASSIUM 3.8 mmol/L (3.5-5.1); TOTAL PROTEIN, SERUM 5.8 g/dL (6.0-8.3)
--- NOTE | 2024-05-14 07:47 | PN ---
[facility] CARDIOLOGY PROGRESS NOTE Date Patient Seen: May 14, 2024 Time of Visit: 07:44 Interval History: [Tele overnight did not show any runs of a-fib. PVCs. Average HR 70-80s bpm. Physical Examination: GENERAL: [A&Ox3.] HEAD: [Normal with no signs of head trauma.] EYES: [PERRLA, EOMI, conjunctiva and sclera normal.] ENT: [Hearing grossly intact, normal oropharynx.] NECK: [Supple without JVD. There is no tenderness, lymphadenopathy, or masses. No thyromegaly. Normal carotid upstrokes without bruits.] LUNGS: [CTA] HEART: [Normal rate and rhythm. Normal S1 and S2 without mumurs, gallop or rub.] VASC: [Peripheral pulses +2 bilaterally.] ABD: [Bowel sounds normal, soft, nontender, no masses, no organomegaly. No audible bruits.] : [Not examined] SKIN: [No rashes or lesions noted.] NEURO: [no deficits] Laboratory: [ ] Hematology Labs: Test 05/14/24 04:03 Range/Units White Blood Count 8.4 4.8-10.8 K/uL Red Blood Count 2.98 L 4.50-6.20 MIL/uL Hemoglobin 9.1 L 14.0-18.0 g/dL Hematocrit 27.7 L 42-54 % Mean Corpuscular Volume 93.0 79-99 fL Mean Corpuscular Hemoglobin 30.5 27.0-33.0 pg Mean Corpuscular Hemoglobin Concent 32.9 32.0-36.0 g/dL Red Cell Distribution Width 13.5 11.0-15.5 % Platelet Count 258 # 130-400 K/uL Mean Platelet Volume 10.0 7.5-10.5 fL Immature Granulocyte % (Auto) 1.2 H 0-1 % Neutrophils (%) (Auto) 82.7 H 40.0-77.0 % Lymphocytes (%) (Auto) 6.7 L 21.0-51.0 % Monocytes (%) (Auto) 8.7 3.0-13.0 % Eosinophils (%) (Auto) 0.6 0.0-8.0 % Basophils (%) (Auto) 0.1 0.0-5.0 % Neutrophils # (Auto) 6.9 1.8-7.7 K/uL Lymphocytes # (Auto) 0.6 L 1.0-4.8 K/uL Monocytes # (Auto) 0.7 0.1-1.0 K/uL Eosinophils # (Auto) 0.05 0.00-0.70 K/uL Basophils # (Auto) 0.01 0.00-0.20 K/uL Absolute Immature Granulocyte (auto 0.10 0-1 K/uL Nucleated Red Blood Cells 0.0 0.0-0.19 % Chemistry Labs: Test 05/14/24 05:09 05/14/24 04:03 05/13/24 03:33 Range/Units Whole Blood Glucose 122 H 70-110 MG/DL Sodium Level 135 L 136-145 mmol/L Potassium Level 3.8 3.5-5.1 mmol/L Chloride Level 100 L 101-111 mmol/L Carbon Dioxide Level 31 21-32 mmol/L Blood Urea Nitrogen 20 H 7-18 mg/dL Creatinine 1.2 0.5-1.3 mg/dL Glomerular Filtration Rate Calc 60 >90 mL/min Random Glucose 128 H 70-105 mg/dL Lactic Acid Level 1.3 0.8-2.5 mmol/L Total Calcium 7.5 L 8.5-10.1 mg/dL Phosphorus Level 2.5 2.5-4.9 mg/dL Total Bilirubin 0.6 0.2-1.0 mg/dL Aspartate Amino Transf (AST/SGOT) 55 H 10-37 U/L Alanine Aminotransferase (ALT/SGPT) 45 12-78 U/L Alkaline Phosphatase 110 50-136 U/L Total Protein 5.8 L 6.0-8.3 g/dL Albumin 2.0 L 3.5-5.0 g/dL Magnesium Level 2.30 1.6-2.6 mg/dL Diagnostics / Radiology: [Copy/Paste Echos/Imaging Report here] Impression and Plan: [#CAD s/p Coronary artery bypass grafting x3 with left internal mammary artery to left anterior descending coronary artery, vein graft bypass to distal left anterior descending coronary artery and vein graft bypass to obtuse marginal/ramus - Insertion of intraaortic balloon pump via the right common femoral artery, good pulses -h/o GISSELLE in 2017 - metoprolol tartrate 12.5 mg bid -c/w asa 81 mg qd, atorvastatin 40 mg qhs, plavix 75 mg qd -2D echo showed mid range LVEF 40-45% #post op a-fib -could be due to hypokalemia, c/w K daily 20 meq -amiodarone bolus given 05/11 -05/13 547 am tele showed a-fib lasted 12 minutes converted to NSR -05/13 started po amidarone 200 mg bid x7 days, so on 05/20 he will transition to 200 mg po qd Aneta Zaragoza MD ] ANETA ZARAGOZA MD May 14, 2024 07:47
[2024-05-14] MEDS: furoSEMIDE 20 MG TABLET PO SCH (08:30)
[2024-05-14] MEDS: CHLORHEXIDINE GLUCONATE 15 ML MOUTHWASH MM SCH (14:17)
--- NOTE | 2024-05-14 18:45 | PN ---
[facility] PROGRESS NOTE Date Patient Seen: May 14, 2024 Time of Visit: 18:41 Supervising Physician: CINTHYA RAZO MD Primary Care Physician: Non established- lives in [place]- self pay Outpatient Specialists: NA Inpatient Consults: Dr. Fabricio Greene, Dr. Augusto Zaragoza, Dr. Garcia PROBLEM LIST: Acute hypoxic respiratory failure postop as expected 2L, resolved Postop Paroxysmal AFib with RVR Lateral wall ST elevation UT Status post left heart cardiac catheterization on 05/03/[address] Marin in [facility] [facility] Multivessel coronary artery disease S/P CABG x3- CHATMAN to LAD, RSVG to distal LAD, RSVG to OM/ Ramus on 05/[address] Garcia Acute on chronic reduced EF HF- LVEF 40%- POA Metabolic alkalosis- resolved Acute coronary syndrome Chest pain related to ACS Acute kidney injury due to ATN from dehydration Hyperglycemia in the setting of T2DM H/O Coronary artery disease status post PCI stent remote, hypertension, hyperl ipidemia, Diabetes mellitus type II INTERVAL HISTORY: 05/14 Patient seen and evaluated by me at bedside, events of the last 24 hours noted. Patient's daughter in the room with patient Mr. Barbosa is recovering from CABG, he is very weak, severely deconditioned and with fatigue He is on 2 liters O2, he is awake, well hydrated. Complains of oral dysphagia complains of dyspnea on exertion denies nausea, denies vomiting Mild chest pain, no palpitations BM x 1 No dysuria REVIEW OF SYSTEMS: Constitutional: No appetite loss, No fevers, chills , No night sweats, No weakness, fatigue Eye: No vision change, No redness, pain or discharge ENT: No hearing loss, ear pain or discharge, No nose bleeds, No sore throat, Neck: No swelling. pain or stiffness Respiratory: No cough, shortness of breath, wheezing Cardiovascular: No chest pain No palpitations or syncope. Gastrointestinal: No abdominal pain, No nausea, vomiting, No diarrhea, constipation Genitourinary: No painful urination, No blood in urine, No urinary incontinence, No frequency or urgency Musculoskeletal: No joint pain, muscle pain, swelling or stiffness Neurological: No numbness, tingling, No weakness, tremors or seizures yes to vertigo Psychiatric: : No depression, No anxiety, No sleep disturbance, No Memory changes Lymphatic: No easy bruising, No bleeding tendencies , No swollen lymph nodes PHYSICAL EXAM: GENERAL: AAOx3, follows command HEENT: Oral mucosa with hyperemia, ulcers and swollen NECK: Supple, no JVD, trachea midline LUNGS: Clear breath sounds bilaterally. No wheezes HEART: Regular rate and rhythm. Normal S1 and S2, without murmurs ABD: Abdomen soft, nontender. Bowel sounds present EXT: No clubbing cyanosis or edema NEURO: Moving all extremities equally. no unilateral weakness. Vital Signs (last 8hr) Date Time Temp Pulse Resp B/P (MAP) Pulse Ox O2 Delivery O2 Flow Rate FiO2 05/14/24 17:02 98.8 94 18 120/66 98 Room Air 05/14/24 11:58 97.2 86 16 118/63 98 Room Air LABS: Hematology Labs: Test 05/14/24 04:03 Range/Units White Blood Count 8.4 4.8-10.8 K/uL Red Blood Count 2.98 L 4.50-6.20 MIL/uL Hemoglobin 9.1 L 14.0-18.0 g/dL Hematocrit 27.7 L 42-54 % Mean Corpuscular Volume 93.0 79-99 fL Mean Corpuscular Hemoglobin 30.5 27.0-33.0 pg Mean Corpuscular Hemoglobin Concent 32.9 32.0-36.0 g/dL Red Cell Distribution Width 13.5 11.0-15.5 % Platelet Count 258 # 130-400 K/uL Mean Platelet Volume 10.0 7.5-10.5 fL Immature Granulocyte % (Auto) 1.2 H 0-1 % Neutrophils (%) (Auto) 82.7 H 40.0-77.0 % Lymphocytes (%) (Auto) 6.7 L 21.0-51.0 % Monocytes (%) (Auto) 8.7 3.0-13.0 % Eosinophils (%) (Auto) 0.6 0.0-8.0 % Basophils (%) (Auto) 0.1 0.0-5.0 % Neutrophils # (Auto) 6.9 1.8-7.7 K/uL Lymphocytes # (Auto) 0.6 L 1.0-4.8 K/uL Monocytes # (Auto) 0.7 0.1-1.0 K/uL Eosinophils # (Auto) 0.05 0.00-0.70 K/uL Basophils # (Auto) 0.01 0.00-0.20 K/uL Absolute Immature Granulocyte (auto 0.10 0-1 K/uL Nucleated Red Blood Cells 0.0 0.0-0.19 % Chemistry Labs: Test 05/14/24 16:53 05/14/24 04:03 Range/Units Whole Blood Glucose 147 H 70-110 MG/DL Sodium Level 135 L 136-145 mmol/L Potassium Level 3.8 3.5-5.1 mmol/L Chloride Level 100 L 101-111 mmol/L Carbon Dioxide Level 31 21-32 mmol/L Blood Urea Nitrogen 20 H 7-18 mg/dL Creatinine 1.2 0.5-1.3 mg/dL Glomerular Filtration Rate Calc 60 >90 mL/min Random Glucose 128 H 70-105 mg/dL Lactic Acid Level 1.3 0.8-2.5 mmol/L Total Calcium 7.5 L 8.5-10.1 mg/dL Phosphorus Level 2.5 2.5-4.9 mg/dL Magnesium Level 2.40 1.6-2.6 mg/dL Total Bilirubin 0.6 0.2-1.0 mg/dL Aspartate Amino Transf (AST/SGOT) 55 H 10-37 U/L Alanine Aminotransferase (ALT/SGPT) 45 12-78 U/L Alkaline Phosphatase 110 50-136 U/L Total Protein 5.8 L 6.0-8.3 g/dL Albumin 2.0 L 3.5-5.0 g/dL DIAGNOSTICS / RADIOLOGY RESULTS: [ ] PLAN Patient with oral dysphagia secondary to post traumatic intubation and glossitis Will start Peridex oral wash and gargle continue the use of BiPAP at night wean off O2 Incentive spirometry daily up and out of bed daily ad quinton NEURO: Minimize central acting medications as possible. Maintain fall precautions, adequate lighting during the day PULMONARY: Supplemental 02 as needed. Maintain aspiration precautions at all times CARDIOVASCULAR: Follow hemodynamics. Vital signs per facility protocol GI & NUTRITION: Continue with nutritional support. Continue stool softeners and laxatives as needed. KIDNEYS & ELECTROLYTES: Strict monitoring of intake, output and overall fluid balance. Avoid nephrotoxic medications to the extent possible. Medications to be dosed according to renal function. Monitor electrolytes and replace as needed ENDOCRINE: Maintain blood glucose between 100-180 at all times. Hypoglycemia protocol in place INFECTIOUS DISEASE: Trend temperature, WBC and procalcitonin level Follow cultures, deescalate antibiotics as soon as possible. Panculture if new onset fever ONCOLOGY/HEMATOLOGY/COAGULATION: Monitor for s/s of bleeding Monitor hemoglobin, coagulation studies as needed SKIN: Pressure ulcer prevention per facility protocol Specialty mattress ORTHO/REHAB: Continue PT/OT Prophylaxis: Continue GI and DVT prophylaxis Code Status: Full Resuscitation Disposition: TBD Other: Total patient care time exceeds 35 minutes excluding all procedures. ATTESTATION BY PHYSICIAN The above service was scribed by GABBI [place] and I attest to the accuracy of the note Cinthya Razo MD I personally scribed for CINTHYA RAZO MD ([email or web address]) on 05/14/24 at 18:45. Electronically submitted by Shakeel Anthony ([email or web address]). CINTHYA RAZO MD May 14, 2024 18:45
--- NOTE | 2024-05-14 21:55 | PN ---
SUBJECTIVE: An 83-year-old gentleman, status post CABG, coursing postoperative day #8. OBJECTIVE: GENERAL: Awake, alert, afebrile, neurologically intact. VITAL SIGNS: Stable as recorded in medical record. CHEST: Sternum stable. Incision sealed. LUNGS: Clear. EXTREMITIES: Warm, well perfused. No evidence of DVT, hematoma, or infection. ASSESSMENT: Status post coronary artery bypass graft. PROBLEMS: * Coronary artery disease, on aspirin and beta blockers. * Atrial fibrillation with rapid ventricular response, on amiodarone. * Fluid overload. Lasix ____ mg twice a day. * Dyslipidemia. Lipitor 40 mg once a day. * Disposition. PT, OT, cardiac rehab discharge planning. TID: [id number] RECEIPT: [id number]
[2024-05-15] VITALS (8 sets, daily range): BP systolic 123–140; BP diastolic 60–89; PULSE 71–101; RESP 16–20; TEMP 98–99; O2SAT 96–98
[2024-05-15] MEDS: ALBUTEROL 0.042% 1.25MG/3ML IH PRN (00:21)
[2024-05-15 03:50] LABS: BASOPHILS # (AUTO) 0.02 K/uL (0.00-0.20); BASOPHILS % (AUTO) 0.2 % (0.0-5.0); EOSINOPHILS # (AUTO) 0.03 K/uL (0.00-0.70); EOSINOPHILS % (AUTO) 0.4 % (0.0-8.0); HEMATOCRIT 27.1 % (42-54); IMMATURE GRANULOCYTE ABSOLUTE 0.08 K/uL (0-1); LYMPHOCYTES # (AUTO) 0.5 K/uL (1.0-4.8); LYMPHOCYTES % (AUTO) 5.5 % (21.0-51.0); MEAN CORPUSCULAR HEMOGLOBIN 30.5 pg (27.0-33.0); MEAN CORPUSCULAR HGB CONC 33.2 g/dL (32.0-36.0); MEAN CORPUSCULAR VOLUME 91.9 fL (79-99); MONOCYTES # (AUTO) 0.8 K/uL (0.1-1.0); MONOCYTES % (AUTO) 9.7 % (3.0-13.0); NEUTROPHILS # (AUTO) 7.1 K/uL (1.8-7.7); NEUTROPHILS % (AUTO) 83.3 % (40.0-77.0); PLATELET COUNT (AUTO) 281 K/uL (130-400); RED BLOOD CELL COUNT(AUTO) 2.95 MIL/uL (4.50-6.20); RED CELL DISTRIBUTION WIDTH 13.4 % (11.0-15.5); WHITE BLOOD COUNT (AUTO) 8.5 K/uL (4.8-10.8)
[2024-05-15 04:10] LABS: ALBUMIN 2.1 g/dL (3.5-5.0); BILIRUBIN,TOTAL 0.8 mg/dL (0.2-1.0); CREATININE 1.2 mg/dL (0.5-1.3); MAGNESIUM 2.3 mg/dL (1.80-2.40); POTASSIUM 3.4 mmol/L (3.5-5.1); TOTAL PROTEIN, SERUM 5.9 g/dL (6.0-8.3)
[2024-05-15 04:52] LABS: B-TYPE NATRIURETIC PEPTIDE 2110 pg/mL (0-100)
--- NOTE | 2024-05-15 08:50 | PN ---
PROBLEM LIST: Acute hypoxic respiratory failure postop as expected 2L, resolved Postop Paroxysmal AFib with RVR Lateral wall ST elevation CT Status post left heart cardiac catheterization on 05/03/[address] Marin in [facility] Multivessel coronary artery disease S/P CABG x3- CHATMAN to LAD, RSVG to distal LAD, RSVG to OM/ Ramus on 05/[address] Garcia Acute on chronic reduced EF HF- LVEF 40%- POA Metabolic alkalosis- resolved Acute coronary syndrome Chest pain related to ACS Acute kidney injury due to ATN from dehydration Hyperglycemia in the setting of T2DM H/O Coronary artery disease status post PCI stent remote, hypertension, hyperlipidemia, Diabetes mellitus type II Patient offers no symptomatic complaints and he is cheerful. His family is getting him up to ambulate and he is enthusiastic about the activity. Chest is clear with no rales or rhonchi and respiratory pattern is nonlabored. PMI is normal. S1 and S2 are normal I do hear a murmur at the apex. No edema. Neurologically appears normal. Impression: Improving after coronary bypass, heart failure stable, murmur noted. Plan: Continue to advance activity as tolerated. Vitals/Labs Vital Signs Date Time Temp Pulse Resp B/P (MAP) Pulse Ox O2 Delivery O2 Flow Rate FiO2 05/15/24 07:00 96 Nasal Cannula* 2 28 05/15/24 06:10 98.8 79 16 129/71 Laboratory Tests 05/15/24 03:31 Medications Current Medications Acetaminophen 650 mg Q6H PRN PO; Start 05/04/24 at 06:00; Stop 05/06/24 at 12:32; Status DC Acetaminophen 650 mg Q6H PRN RC; Start 05/04/24 at 06:00; Stop 05/11/24 at 07:20; Status DC Lactulose 20 gm Q6H PRN PO Last administered on 05/05/24at 16:57; Start 05/04/24 at 06:00; Stop 05/06/24 at 12:07; Status DC Docusate Sodium 100 mg BID PRN PO; Start 05/04/24 at 06:00; Stop 05/06/24 at 12:07; Status DC Temazepam 15 mg HS PRN PO Last administered on 05/04/24at 21:22; Start 05/04/24 at 06:00; Stop 05/06/24 at 12:07; Status DC Ondansetron HCl 4 mg Q6H PRN IVP; Start 05/04/24 at 06:00; Stop 05/06/24 at 12:07; Status DC Hydralazine HCl 10 mg Q2H PRN IV; Start 05/04/24 at 06:00; Stop 05/06/24 at 12:07; Status DC Insulin Human Regular INSULIN SLIDING SCAL... ACHS SQ; Start 05/04/24 at 07:30; Stop 05/06/24 at 12:07; Status DC Heparin Sodium (Porcine) 5,000 unit AD PRN IV Last administered on 05/04/24at 07:00; Start 05/04/24 at 08:00; Stop 05/06/24 at 12:07; Status DC Heparin Sodium/ Dextrose 250 ml @ 0 mls/hr Q6H IV Last administered on 05/05/24at 07:34; Start 05/04/24 at 08:00; Stop 05/06/24 at 12:07; Status DC Heparin Sodium (Porcine) 5,000 unit STK-MED ONCE .ROUTE; Start 05/04/24 at 06:57; Stop 05/04/24 at 07:02; Status DC Aspirin 81 mg DAILY PO Last administered on 05/15/24at 08:13; Start 05/04/24 at 09:00; Stop 06/03/24 at 08:59 Atorvastatin Calcium 40 mg HS PO Last administered on 05/14/24at 20:50; Start 05/04/24 at 21:00; Stop 06/03/24 at 20:59 Famotidine 20 mg Q24H PO Last administered on 05/05/24at 08:15; Start 05/04/24 at 09:00; Stop 05/06/24 at 12:07; Status DC Insulin Glargine 12 units HS SQ Last administered on 05/05/24at 21:16; Start 05/04/24 at 21:00; Stop 05/06/24 at 12:07; Status DC Nitroglycerin/ Dextrose 250 ml @ 0 mls/hr PROTOCOL IV Last administered on 05/04/24at 09:55; Start 05/04/24 at 09:30; Stop 05/06/24 at 12:41; Status DC Potassium Chloride 100 ml @ 100 mls/hr AD PRN IV; Start 05/04/24 at 09:30; Stop 05/06/24 at 12:07; Status DC Potassium Chloride 20 meq AD PRN PO; Start 05/04/24 at 09:30; Stop 05/06/24 at 12:07; Status DC Potassium Chloride 20 meq AD PRN PO; Start 05/04/24 at 09:30; Stop 05/06/24 at 12:07; Status DC Potassium Chloride 100 ml @ 50 mls/hr AD PRN IV; Start 05/04/24 at 09:30; Stop 05/04/24 at 09:34; Status DC Magnesium Sulfate 50 ml @ 0 mls/hr PROTOCOL PRN IV; Start 05/04/24 at 09:30; Stop 05/06/24 at 12:07; Status DC Metoprolol Tartrate 12.5 mg BID PO Last administered on 05/06/24at 08:06; Start 05/04/24 at 21:00; Stop 05/06/24 at 12:07; Status DC Calcium Carbonate 1 tab Q6H PRN PO Last administered on 05/04/24at 16:38; Start 05/04/24 at 17:00; Stop 05/06/24 at 12:07; Status DC Cefazolin Sodium 2 gm ONCALL IVP; Start 05/05/24 at 10:00; Stop 05/06/24 at 12:38; Status DC Docusate Sodium 100 mg BID PO Last administered on 05/05/24at 16:57; Start 05/05/24 at 11:30; Stop 05/06/24 at 12:07; Status DC Polyethylene Glycol 17 gm BID PO Last administered on 05/05/24at 16:57; Start 05/05/24 at 11:30; Stop 05/06/24 at 12:07; Status DC Lactulose 20 gm BID PRN PO; Start 05/05/24 at 11:30; Stop 05/06/24 at 12:07; Status DC Epinephrine HCl 10 mg/Sodium Chloride 250 ml @ 0 mls/hr AD PRN IV; Start 05/06/24 at 07:00; Stop 05/06/24 at 12:35; Status DC Norepinephrine Bitartrate 250 ml @ 0 mls/hr AD PRN IV; Start 05/06/24 at 07:00; Stop 05/06/24 at 12:35; Status DC Aminocaproic Acid 75761 mg/Sodium Chloride 480 ml @ 0 mls/hr AD PRN IV; Start 05/06/24 at 07:00; Stop 06/05/24 at 06:59 Nitroglycerin/ Dextrose 1 ml @ As Directed STK-MED ONCE .ROUTE; Start 05/06/24 at 07:14; Stop 05/06/24 at 07:15; Status DC Lidocaine HCl/ Dextrose 250 ml @ As Directed STK-MED ONCE IV; Start 05/06/24 at 07:15; Stop 05/06/24 at 07:15; Status DC Cefazolin Sodium 1 gm STK-MED ONCE .ROUTE; Start 05/06/24 at 09:27; Stop 05/06/24 at 09:27; Status DC Heparin Sodium/ Sodium Chloride 500 ml @ As Directed STK-MED ONCE IV; Start 05/06/24 at 09:27; Stop 05/06/24 at 09:27; Status DC Papaverine HCl 60 mg STK-MED ONCE .ROUTE; Start 05/06/24 at 09:27; Stop 05/06/24 at 09:28; Status DC Cefazolin Sodium 1 gm STK-MED ONCE .ROUTE; Start 05/06/24 at 11:12; Stop 05/06/24 at 11:13; Status DC Protamine Sulfate 250 mg STK-MED ONCE IV; Start 05/06/24 at 11:24; Stop 05/06/24 at 11:25; Status DC Lidocaine HCl 100 mg STK-MED ONCE .ROUTE; Start 05/06/24 at 11:24; Stop 05/06/24 at 11:25; Status DC Heparin Sodium (Porcine) 10,000 unit STK-MED ONCE .ROUTE; Start 05/06/24 at 11:24; Stop 05/06/24 at 11:25; Status DC Epinephrine HCl 1 mg STK-MED ONCE .ROUTE; Start 05/06/24 at 11:24; Stop 05/06/24 at 11:25; Status DC Sodium Bicarbonate 200 ml @ As Directed STK-MED ONCE .ROUTE; Start 05/06/24 at 11:24; Stop 05/06/24 at 11:25; Status DC Norepinephrine Bitartrate 4 mg STK-MED ONCE IV; Start 05/06/24 at 11:24; Stop 05/06/24 at 11:25; Status DC Propofol 200 mg STK-MED ONCE IV; Start 05/06/24 at 11:25; Stop 05/06/24 at 11:25; Status DC Fentanyl Citrate 1,000 mcg STK-MED ONCE IJ; Start 05/06/24 at 11:25; Stop 05/06/24 at 11:25; Status DC Rocuronium [place] 50 mg STK-MED ONCE .ROUTE; Start 05/06/24 at 11:25; Stop 05/06/24 at 11:25; Status DC Etomidate 20 mg STK-MED ONCE .ROUTE; Start 05/06/24 at 11:26; Stop 05/06/24 at 11:27; Status DC Heparin Sodium (Porcine) 10,000 unit STK-MED ONCE .ROUTE; Start 05/06/24 at 11:55; Stop 05/06/24 at 11:56; Status DC Cardioplegic Solution 0 ml @ As Directed STK-MED ONCE IV; Start 05/06/24 at 11:56; Stop 05/06/24 at 11:56; Status DC Acetaminophen 1,000 mg Q6H6 IV Last administered on 05/07/24at 12:52; Start 05/06/24 at 18:00; Stop 05/07/24 at 17:59; Status DC Aspirin 81 mg ONCE ONCE NG Last administered on 05/06/24at 16:01; Start 05/06/24 at 16:00; Stop 05/06/24 at 16:01; Status DC Docusate Sodium 100 mg BID PO Last administered on 05/15/24at 08:13; Start 05/06/24 at 21:00; Stop 06/05/24 at 20:59 Lactulose 20 gm BID PRN PO Last administered on 05/08/24at 09:04; Start 05/06/24 at 12:30; Stop 06/05/24 at 12:29 Furosemide 20 mg Q12H PO Last administered on 05/08/24at 07:42; Start 05/08/24 at 09:00; Stop 05/08/24 at 08:58; Status DC Furosemide 20 mg Q12H IV Last administered on 05/07/24at 19:59; Start 05/07/24 at 09:00; Stop 05/08/24 at 08:58; Status DC Enoxaparin Sodium 30 mg DAILY SQ Last administered on 05/15/24at 08:12; Start 05/09/24 at 09:00; Stop 06/08/24 at 08:59 Metoprolol Tartrate 12.5 mg BID PO Last administered on 05/15/24at 08:14; Start 05/08/24 at 09:00; Stop 06/07/24 at 08:59 Magnesium Hydroxide 30 ml DAILY PRN PO; Start 05/06/24 at 12:30; Stop 06/05/24 at 12:29 Dexmedetomidine/ Sodium Chloride 400 mcg PROTOCOL IV Last administered on 05/07/24at 05:14; Start 05/06/24 at 12:30; Stop 05/07/24 at 12:29; Status DC Acetaminophen 650 mg Q6H PRN PO Last administered on 05/12/24at 19:59; Start 05/06/24 at 12:30; Stop 06/05/24 at 12:29 Sodium Chloride 1,000 ml @ 10 mls/hr ONCE IV Last administered on 05/06/24at 16:01; Start 05/06/24 at 12:30; Stop 05/07/24 at 12:29; Status DC Sodium Chloride 10 ml Q8H PRN IVP; Start 05/06/24 at 12:30; Stop 06/05/24 at 12:29 Morphine Sulfate 0.5 mg Q2H PRN IV; Start 05/06/24 at 12:30; Stop 05/07/24 at 12:29; Status DC Morphine Sulfate 1 mg Q2H PRN IV; Start 05/06/24 at 12:30; Stop 05/06/24 at 12:40; Status DC Acetaminophen 650 mg Q4H PRN RC; Start 05/06/24 at 12:30; Stop 06/05/24 at 12:29 Ondansetron HCl 4 mg Q6H PRN IV Last administered on 05/12/24at 14:38; Start 05/06/24 at 12:30; Stop 06/05/24 at 12:29 Sodium Chloride 500 ml @ 0 mls/hr AD IV; Start 05/06/24 at 12:30; Stop 06/05/24 at 12:29 Nitroglycerin/ Dextrose 0 ml @ 0 mls/hr AD IV; Start 05/06/24 at 12:30; Stop 05/09/24 at 12:29; Status DC Propofol 100 ml @ 0 mls/hr AD PRN IV; Start 05/06/24 at 12:30; Stop 05/10/24 at 12:29; Status DC Norepinephrine Bitartrate 8 mg/ Dextrose 250 ml @ 0 mls/hr AD PRN IV; Start 05/06/24 at 12:30; Stop 05/06/24 at 12:37; Status DC Epinephrine HCl 10 mg/Sodium Chloride 250 ml @ 10.206 mls/ hr AD PRN IV; Start 05/06/24 at 12:30; Stop 05/11/24 at 12:29; Status DC Aminocaproic Acid 27076 mg/Sodium Chloride 310 ml @ 25 mls/hr AD IV; Start 05/06/24 at 12:30; Stop 05/06/24 at 12:34; Status DC Calcium Gluconate 1 gm/Sodium Chloride 60 ml @ 200 mls/hr AD PRN IV Last administered on 05/08/24at 13:19; Start 05/06/24 at 12:30; Stop 06/05/24 at 12:29 Magnesium Sulfate 50 ml @ 12.5 mls/hr AD PRN IV Last administered on 05/11/24at 08:34; Start 05/06/24 at 12:30; Stop 06/05/24 at 12:29 Potassium Chloride 100 ml @ 100 mls/hr AD PRN IV Last administered on 05/12/24at 05:15; Start 05/06/24 at 12:30; Stop 06/05/24 at 12:29 Potassium Phosphate 250 ml @ 42 mls/hr AD PRN IV; Start 05/06/24 at 12:30; Stop 06/05/24 at 12:29 Albumin Human 250 ml @ 0 mls/hr AD PRN IV Last administered on 05/06/24at 17:38; Start 05/06/24 at 12:30; Stop 05/06/24 at 17:38; Status DC Acetaminophen 650 mg Q4H PRN PO; Start 05/06/24 at 12:30; Stop 06/05/24 at 12:29 Insulin Human Regular 100 unit/ Sodium Chloride 100 ml @ 0 mls/hr AD IV; Start 05/06/24 at 12:30; Stop 05/08/24 at 12:29; Status DC Cefazolin Sodium 2 gm Q8H IVPB Last administered on 05/07/24at 10:04; Start 05/06/24 at 17:30; Stop 05/07/24 at 09:31; Status DC Tramadol HCl 25 mg Q6H PRN PO; Start 05/06/24 at 12:30; Stop 05/11/24 at 12:29; Status DC Tramadol HCl 50 mg Q6H PRN PO Last administered on 05/11/24at 04:54; Start 05/06/24 at 12:30; Stop 05/11/24 at 12:29; Status DC Famotidine 20 mg Q24H IV Last administered on 05/14/24at 20:50; Start 05/06/24 at 21:00; Stop 06/05/24 at 20:59 Sodium Bicarbonate 50 meq AD PRN IV Last administered on 05/06/24at 17:38; Start 05/06/24 at 12:30; Stop 05/09/24 at 12:29; Status DC Dextrose 50 ml AD PRN IV; Start 05/06/24 at 12:30; Stop 06/05/24 at 12:29 Glucagon 1 mg AD PRN IM; Start 05/06/24 at 12:30; Stop 06/05/24 at 12:29 Sodium Bicarbonate 200 ml @ As Directed STK-MED ONCE .ROUTE; Start 05/06/24 at 12:27; Stop 05/06/24 at 12:28; Status DC Amiodarone HCl 150 mg STK-MED ONCE .ROUTE; Start 05/06/24 at 12:35; Stop 05/06/24 at 12:36; Status DC Norepinephrine Bitartrate 250 ml @ 0 mls/hr AD PRN IV; Start 05/06/24 at 13:00; Stop 05/10/24 at 23:42; Status DC Morphine Sulfate 1 mg Q2H PRN IV; Start 05/06/24 at 13:00; Stop 05/07/24 at 12:29; Status DC Lidocaine HCl 100 mg STK-MED ONCE .ROUTE; Start 05/06/24 at 12:45; Stop 05/06/24 at 12:45; Status DC Atropine Sulfate 1 mg STK-MED ONCE IVP; Start 05/06/24 at 12:46; Stop 05/06/24 at 12:46; Status DC Potassium Chloride 300 ml @ As Directed STK-MED ONCE IV; Start 05/06/24 at 12:48; Stop 05/06/24 at 12:48; Status DC Potassium Chloride 300 ml @ As Directed STK-MED ONCE IV; Start 05/06/24 at 12:48; Stop 05/06/24 at 12:49; Status DC Cefazolin Sodium 2 gm STK-MED ONCE IVPB Last administered on 05/06/24at 11:55; Start 05/06/24 at 11:55; Stop 05/06/24 at 13:04; Status DC Cefazolin Sodium 1 gm STK-MED ONCE IRRIG Last administered on 05/06/24at 12:30; Start 05/06/24 at 12:30; Stop 05/06/24 at 13:04; Status DC Papaverine HCl 60 mg STK-MED ONCE IRRIG Last administered on 05/06/24at 12:30; Start 05/06/24 at 12:30; Stop 05/06/24 at 13:04; Status DC Atropine Sulfate 0.4 mg STK-MED ONCE IJ; Start 05/06/24 at 13:05; Stop 05/06/24 at 13:05; Status DC Potassium Chloride 100 ml @ As Directed STK-MED ONCE IV; Start 05/06/24 at 14:22; Stop 05/06/24 at 14:22; Status DC Albumin Human 250 ml @ As Directed STK-MED ONCE IV; Start 05/06/24 at 15:03; Stop 05/06/24 at 15:04; Status DC Albumin Human 250 ml @ As Directed STK-MED ONCE IV; Start 05/06/24 at 15:13; Stop 05/06/24 at 15:13; Status DC Lidocaine HCl/ Dextrose 250 ml @ As Directed STK-MED ONCE IV Last administered on 05/07/24at 08:06; Start 05/07/24 at 07:07; Stop 05/07/24 at 07:07; Status DC Lidocaine HCl/ Dextrose 250 ml @ 0 mls/hr PROTOCOL IV Last administered on 05/07/24at 11:34; Start 05/07/24 at 11:30; Stop 06/06/24 at 11:29 Insulin Human Regular INSULIN SLIDING SCAL... ACHS SQ Last administered on 05/10/24at 20:53; Start 05/08/24 at 11:30; Stop 05/11/24 at 05:59; Status DC Furosemide 20 mg BID@09,17 PO Last administered on 05/11/24at 17:13; Start 05/08/24 at 21:00; Stop 05/12/24 at 07:27; Status DC Clopidogrel Bisulfate 75 mg DAILY PO Last administered on 05/15/24at 08:14; Start 05/09/24 at 09:00; Stop 06/08/24 at 08:59 Promethazine HCl 6.25 mg Q6H PRN PO Last administered on 05/09/24at 10:02; Start 05/09/24 at 10:00; Stop 06/08/24 at 09:59 Docusate Sodium 100 mg ONCE ONCE PO; Start 05/09/24 at 10:00; Stop 05/09/24 at 10:01; Status DC Polyethylene Glycol 17 gm DAILY PO Last administered on 05/15/24at 08:12; Start 05/09/24 at 10:00; Stop 06/08/24 at 09:59 Amiodarone HCl 150 mg/Dextrose 103 ml @ 618 mls/hr ONCE IV Last administered on 05/09/24at 17:27; Start 05/09/24 at 17:12; Stop 05/09/24 at 19:30; Status DC Amiodarone HCl 360 mg/Dextrose 207.2 ml @ 33.3 mls/hr AD IV Last administered on 05/09/24at 17:39; Start 05/09/24 at 17:30; Stop 05/09/24 at 23:59; Status DC Amiodarone HCl 540 mg/Dextrose 310.8 ml @ 16.7 mls/hr [id number] IV Last administered on 05/10/24at 00:59; Start 05/09/24 at 23:00; Stop 05/11/24 at 00:32; Status DC Amiodarone HCl 200 mg BID PO Last administered on 05/12/24at 21:16; Start 05/10/24 at 17:00; Stop 05/13/24 at 07:28; Status DC Benzonatate 100 mg Q8H PRN PO Last administered on 05/13/24at 21:02; Start 05/10/24 at 22:00; Stop 06/09/24 at 21:59 Guaifenesin 200 mg Q4H PRN PO Last administered on 05/14/24at 18:24; Start 05/10/24 at 23:00; Stop 06/09/24 at 22:59 Nitroglycerin 0.4 mg AD PRN SL; Start 05/10/24 at 23:30; Stop 06/09/24 at 23:29 Nitroglycerin/ Dextrose 0 ml @ 0 mls/hr AD PRN IV; Start 05/10/24 at 23:30; Stop 05/13/24 at 20:22; Status DC Norepinephrine 250 ml @ 0 mls/hr AD PRN IV; Start 05/10/24 at 23:30; Stop 05/13/24 at 20:22; Status DC Amiodarone HCl 150 mg/Dextrose 103 ml @ 618 mls/hr ONCE IV Last administered on 05/11/24at 00:50; Start 05/11/24 at 00:30; Stop 05/11/24 at 00:39; Status DC Amiodarone HCl 360 mg/Dextrose 207.2 ml @ 33.3 mls/hr AD IV Last administered on 05/11/24at 00:51; Start 05/11/24 at 00:30; Stop 05/13/24 at 07:11; Status DC Amiodarone HCl 540 mg/Dextrose 310.8 ml @ 16.7 mls/hr [id number] IV Last administered on 05/11/24at 07:44; Start 05/11/24 at 00:30; Stop 06/10/24 at 00:29 Insulin Glargine 10 units BID@0730,2100 SQ Last administered on 05/14/24at 20:53; Start 05/11/24 at 07:30; Stop 06/10/24 at 07:29 Insulin Human Regular INSULIN SLIDING SCAL... ACHS SQ Last administered on 05/14/24at 20:52; Start 05/11/24 at 07:30; Stop 06/10/24 at 07:29 Potassium Chloride 20 meq DAILY PO Last administered on 05/15/24at 08:13; Start 05/11/24 at 09:00; Stop 06/10/24 at 08:59 Potassium Chloride 20 meq ONCE ONCE PO Last administered on 05/11/24at 08:30; Start 05/11/24 at 08:30; Stop 05/11/24 at 08:31; Status DC Chlorpromazine HCl 25 mg Q6H PRN PO Last administered on 05/11/24at 09:37; Start 05/11/24 at 09:00; Stop 05/11/24 at 10:58; Status DC Metoclopramide HCl 5 mg Q8H5 IVP Last administered on 05/14/24at 20:50; Start 05/11/24 at 13:00; Stop 06/10/24 at 12:59 Nystatin 5 ml Q8H PO Last administered on 05/14/24at 20:50; Start 05/11/24 at 21:30; Stop 06/10/24 at 21:29 Potassium Chloride 20 meq ONCE ONCE PO Last administered on 05/12/24at 09:41; Start 05/12/24 at 07:30; Stop 05/12/24 at 07:35; Status DC Ondansetron HCl 4 mg ONCE ONCE IVP; Start 05/12/24 at 15:00; Stop 05/12/24 at 15:01; Status DC Meclizine HCl 25 mg BID PRN PO; Start 05/12/24 at 15:00; Stop 06/11/24 at 14:59 Meclizine HCl 25 mg STK-MED ONCE .ROUTE Last administered on 05/12/24at 14:38; Start 05/12/24 at 14:36; Stop 05/12/24 at 14:36; Status DC Tramadol HCl 100 mg Q6H PRN PO Last administered on 05/13/24at 07:41; Start 05/13/24 at 07:30; Stop 05/13/24 at 13:49; Status DC Tramadol HCl 50 mg Q6H PRN PO; Start 05/13/24 at 07:30; Stop 05/18/24 at 07:29 Amiodarone HCl 200 mg Q12H9 PO Last administered on 05/15/24at 08:14; Start 05/13/24 at 09:00; Stop 05/20/24 at 08:59 Benzocaine 1 each Q4H PRN MM Last administered on 05/14/24at 20:50; Start 05/13/24 at 08:30; Stop 06/12/24 at 08:29 Potassium Chloride 20 meq AD PRN PO Last administered on 05/14/24at 06:10; Start 05/13/24 at 12:00; Stop 06/12/24 at 11:59 Amiodarone HCl 200 mg DAILY PO; Start 05/20/24 at 09:00; Stop 06/19/24 at 08:59 Furosemide 20 mg DAILY PO Last administered on 05/15/24at 08:13; Start 05/14/24 at 09:00; Stop 06/13/24 at 08:59 Chlorhexidine Gluconate 15 ml TID MM Last administered on 05/15/24at 08:15; Start 05/14/24 at 14:00; Stop 05/28/24 at 13:59 Albuterol Sulfate 1.25 [id number] PRN IH Last administered on 05/15/24at 00:21; Start 05/15/24 at 00:00; Stop 06/14/24 at 00:00 ZACKARY NEUMANN MD May 15, 2024 08:50
--- NOTE | 2024-05-15 08:55 | HMCIMG ---
CHEST 1VW HISTORY: Shortness of breath COMPARISON: 05/13/2024 FINDINGS: A frontal projection of the chest was obtained. Mild bilateral pulmonary infiltrates are seen. Poststernotomy changes are seen. The heart is enlarged. Degenerative changes of the thoracolumbar spine are present. No evidence of aortic calcification is seen. IMPRESSION: 1. Mild bilateral pulmonary infiltrates.
--- NOTE | 2024-05-15 17:05 | DS ---
[facility] DISCHARGE SUMMARY Date Patient Seen: May 15, 2024 Time of Visit: 11:53 Supervising Physician: WAI BARRETT MD Primary Care Physician: Non established- lives in [place]- self pay Outpatient Specialists: NA Inpatient Consults: Dr. Fabricio Greene, Dr. Augusto Zaragoza, Dr. Garcia ADMITTING DIAGNOSES Acute hypoxic respiratory failure postop as expected 2L, resolved Postop Paroxysmal AFib with RVR Lateral wall ST elevation PR Status post left heart cardiac catheterization on 05/03/[address] Marin in [facility] Multivessel coronary artery disease S/P CABG x3- CHATMAN to LAD, RSVG to distal LAD, RSVG to OM/ Ramus on 05/[address] Garcia DISCHARGE DIAGNOSES Acute hypoxic respiratory failure postop as expected 2L, resolved Postop Paroxysmal AFib with RVR Lateral wall ST elevation PR Status post left heart cardiac catheterization on 05/03/[address] Marin in [facility] Multivessel coronary artery disease S/P CABG x3- CHATMAN to LAD, RSVG to distal LAD, RSVG to OM/ Ramus on 05/[address] Garcia Acute on chronic reduced EF HF- LVEF 40%- POA Metabolic alkalosis- resolved Acute coronary syndrome Chest pain related to ACS Acute kidney injury due to ATN from dehydration Hyperglycemia in the setting of T2DM H/O Coronary artery disease status post PCI stent remote, hypertension, hyperlipidemia, Diabetes mellitus type II HOSPITAL COURSE: Patient is an 83 year old gentleman admitted and ruled in for SHREE and CAD s/p CABG doing well status post surgery no chest pain or SOB, denies fever, no new complains over the last 24 hours, he is hemodynamically stable he is going to be discharge. 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 PHYSICAL EXAM: GENERAL: AAOx3, follows command HEENT: Oral mucosa with hyperemia, ulcers and swollen NECK: Supple, no JVD, trachea midline LUNGS: Clear breath sounds bilaterally. No wheezes HEART: Regular rate and rhythm. Normal S1 and S2, without murmurs ABD: Abdomen soft, nontender. Bowel sounds present EXT: No clubbing cyanosis or edema NEURO: Moving all extremities equally. no unilateral weakness. FOLLOW-UP: Follow-up with PCP in 2-3 days RECOMMENDATIONS: See Discharge Instructions . More than 30 minutes spent on discharge process, including evaluation of the patient, discussion with nursing staff, medication reconciliation and follow-up appointments ATTESTATION BY PHYSICIAN Documentation assistance provided by a scribe NIURKA KEMP, information recorded by the scribe was done at my direction and has been reviewed and validated by me." WAI PANTOJA MD I personally scribed for WAI PANTOJA MD ([email or web address]) on 05/15/24 at 17:05. Electronically submitted by Niurka Kemp ([id number]). WAI PANTOJA MD May 15, 2024 17:05
--- NOTE | 2024-05-15 20:04 | PN ---
SUBJECTIVE: An 83-year-old gentleman, status post CABG, coursing with postoperative day #9. OBJECTIVE: GENERAL: Awake, alert, afebrile, neurologically intact. VITAL SIGNS: Stable as recorded in medical record. EXTREMITIES: Warm and well perfused. No evidence of DVT, hematoma or infection. ASSESSMENT AND PLAN: Status post coronary artery bypass graft. * Atrial fibrillation with rapid ventricular response. The patient has responded to amiodarone IV bolus followed by amiodarone protocol 200 mg once a day. * Dyslipidemia. Lipitor 40 mg once a day. * Acute respiratory insufficiency with hypoxia. The patient responded to diuresis. * Fluid overload. Lasix 20 mg twice a day. * Disposition. OT, PT, cardiac rehab, discharge planning. TID: [id number] RECEIPT: [id number]
[2024-05-20] MEDS ORDERED: AMIOdarone 200 MG TABLET PO SCH (09:00)
== END 2024-05-15 15:53 | disposition home or self-care (01) | DRG 235 ==
LOC: 2BH 04:47 → 2AH 05-05 21:35 → 2CV 05-06 11:20 → 2BH 05-09 15:20 → 2DH 05-10 16:01 → 2BH 05-10 23:40 → 2AH 05-11 15:24
PROVIDERS: ADMIT Internal Medicine Pulmonary Disease; ATTEND Internal Medicine Pulmonary Disease
PROC: 0BH17EZ Insertion of Endotracheal Airway into Trachea, Via Natural or Artificial Opening (ICD-10-PCS; 2024-05-06)
PROC: 5A1945Z Respiratory Ventilation, 24-96 Consecutive Hours (ICD-10-PCS; 2024-05-06)
PROC: 021109W Bypass Coronary Artery, Two Arteries from Aorta with Autologous Venous Tissue, Open Approach (ICD-10-PCS; principal; 2024-05-06 11:20)
PROC: 06BQ4ZZ Excision of Left Saphenous Vein, Percutaneous Endoscopic Approach (ICD-10-PCS; 2024-05-06 11:20)
PROC: 02100Z9 Bypass Coronary Artery, One Artery from Left Internal Mammary, Open Approach (ICD-10-PCS; 2024-05-06 11:20)
PROC: 5A02210 Assistance with Cardiac Output using Balloon Pump, Continuous (ICD-10-PCS; 2024-05-06 11:20)
DX: I25.10 Atherosclerotic heart disease of native coronary artery without angina pectoris (principal); I21.3 ST elevation (STEMI) myocardial infarction of unspecified site; N17.0 Acute kidney failure with tubular necrosis; J95.821 Acute postprocedural respiratory failure; I50.23 Acute on chronic systolic (congestive) heart failure; D62 Acute posthemorrhagic anemia; E87.3 Alkalosis; Z20.822 Contact with and (suspected) exposure to COVID-19; I48.0 Paroxysmal atrial fibrillation; E78.00 Pure hypercholesterolemia, unspecified; E86.0 Dehydration; E11.65 Type 2 diabetes mellitus with hyperglycemia; R54 Age-related physical debility; I11.0 Hypertensive heart disease with heart failure; Z79.899 Other long term (current) drug therapy; Z79.82 Long term (current) use of aspirin
CPT/HCPCS: 36415; 36600; 71045; 80048; 80053; 80061; 81001; 82330; 82435; 82803; 82947; 82948; 83036; 83605; 83735; 83880; 84100; 84132; 84295; 84484; 85018; 85025; 85027; 85347; 85378; 85384; 85610; 85730; 86850; 86900; 86901; 86923; 87426; 87641; 87804; 93005; 93306; 93312; 93325; 93356; 94002; 94003; 94150; 94640; 94664; A4357; A7048; B4082; C1729; G0378; J0171; J0282; J0461; J0612; J0690; J1644; J1650; J1815; J1940; J2003; J2405; J2440; J2704; J2720; J2765; J3010; J3475; J3480; J3490; J7030; J7040; J7060; P9045; Q0161; Q0169; A4216; A4222; A4223; A4351; A4510; A4600; A4649; A5120; A6204; A7040; A9900; C1713; C1887